=== PATIENT | female | born 1970 | race Caucasian/White ===

== ENCOUNTER 2016-11-02 14:29 | Inpatient (IN) ==
[2016-11-02 14:49] LABS: Basophils % 0.3 %; Eosinophils # 0.2 K/mcL (0.0-0.6); Eosinophils % 1.5 %; Hematocrit 40.6 % (35.3-44.9); Immature Granulocytes % 0.4 % (0-4); Lymphocytes # 2.6 K/mcL (0.6-4.6); Lymphocytes % 25.8 %; Mean Corpuscular HGB Conc 34.5 g/dL (31.6-35.5); Mean Corpuscular Hemoglobin 30.5 pg (28.0-33.3); Mean Corpuscular Volume 88.5 fL (83.0-100.0); Mean Platelet Volume 10.3 fL (9.4-12.4); Monocytes # 0.4 K/mcL (0.0-1.3); Monocytes % 3.6 %; Neutrophils # 6.9 K/mcL (1.6-8.9); Platelet Count 141 K/mcL (140-400); Red Blood Count 4.59 M/mcL (3.82-4.97); Red Cell Distribution Width 12.1 % (11.5-14.5); Segmented Neutrophils % 68.4 %
[2016-11-02] MEDS ORDERED: *HR* LORazepam 2 MG/ML VIAL IVP ONE (14:55)
[2016-11-02] MEDS ORDERED: *HR* Succinylcholine 200 MG/10 ML VIAL IVP ONE ×2 (14:55→20:34)
[2016-11-02] MEDS ORDERED: *HR* Etomidate 20 MG/10 ML AMPUL IVP ONE ×2 (14:55→20:34)
--- NOTE | 2016-11-02 14:56 | Emergency Department Note ---
Disposition Clinical Impression: Overdose Qualifiers: Encounter type: initial encounter Injury intent: intentional self-harm Qualified Code(s): T50.902A - Poisoning by unspecified drugs, medicaments and biological substances, intentional self-harm, initial encounter Suicide attempt by drug ingestion Qualifiers: Encounter type: initial encounter Qualified Code(s): T50.902A - Poisoning by unspecified drugs, medicaments and biological substances, intentional self-harm , initial encounter Disposition: Admitted As Inpatient Condition: Good Time of Disposition: 21:11 Psych HPI - General Chief Complaint: ED Psychiatric Symptoms Stated Complaint: SI / Overdose Time Seen by Provider: 11/02/16 14:35 Source: family, EMS Nursing Notes Reviewed: Yes Vital Signs Reviewed: Yes - History of Present Illness HPI Narrative: Ms. Mirza, a 46yo female, presents from home via EMS with reported voluntary overdose with intention to self-harm. EMS found a pistol next to the patient as well. Patient is unable to provide additional history. Patient's daughter is now bedside. She works at this facility in housekeeping and is very helpful. She notes she was faced timing with the patient and noticed her to be nodding off. This is approximately 13:15 today. Patient's daughter then called EMS. Per patient's daughter, patient has known history of bedbugs in her house for which the she avoids visiting the patient. She also notes that the patient has had hallucinations described as seeing people sitting outside her house, leaving the patient's ex- is trying to kill her, feeling that somebody has an stitch and resewn her purse inside out as a joke. Additionally, patient has a remote history of smoking crack; stopped approximately 1.5 years ago after which she has had a slow but steady decline in ability to care for herself. Patient volunteered to the daughter that she was voluntarily trying to heart herself by taking her medications. EMS brought the bottles which are hydrocodone/acetaminophen 0.5/325 taking for chronic right lower extremity pain as well as alprazolam 1 mg. Patient states that these bottles were full before she took them and they are now empty. EMS notes the patient's pupils are pinpoint on their arrival and are now reactive after 2 doses of intranasal Narcan. Pt complaint: suicidal ideation - Related Data Home Medications Medication Instructions Recorded Confirmed ALPRAZolam [Xanax 1 MG Tablet] 1 mg PO TID PRN 08/07/15 11/02/16 Albuterol Sulfate [Ventolin Hfa] 2 puff IH Q4H PRN 08/07/15 11/02/16 Fluticasone/Salmeterol [Advair 1 puff IH BID 08/07/15 11/02/16 250-50 Diskus] Furosemide [Lasix] 40 mg PO DAILY 08/07/15 11/02/16 HYDROcodone/Acet 7.5/325 mg [[place] 1 tab PO TID PRN 08/07/15 11/02/16 7.5-325 mg] Ipratropium/Albuterol Neb [Duoneb] 3 ml IH QID PRN 08/07/15 11/02/16 Omeprazole [PriLOSEC] 40 mg PO DAILY 08/07/15 11/02/16 Potassium Chloride [Klor-Con 40 meq PO DAILY 08/07/15 11/02/16 Sprinkle] Promethazine [Phenergan] 25 mg PO TID PRN 08/07/15 11/02/16 Ranitidine HCl [Zantac] 150 mg PO BID 08/07/15 11/02/16 Tizanidine HCl 4 mg PO Q8H PRN 08/07/15 11/02/16 hydrALAZINE [HydrALAZINE] 10 mg PO DAILY 08/07/15 11/02/16 Fenofibrate Nanocrystallized 160 mg PO DAILY 11/02/16 11/02/16 [Triglide] Gabapentin [Neurontin] 300 mg PO TID 11/02/16 11/02/16 Lisinopril/Hydrochlorothiazide 0.5 tab PO DAILY 11/02/16 11/02/16 [Zestoretic 20-25 mg Tablet] Gill-3/Dha/Epa/Fish Oil [Fish Oil 1,000 mg PO DAILY 11/02/16 11/02/16 1,000 mg Softgel] Allergies Allergy/AdvReac Type Severity Reaction Status Date / Time No Known Allergies Allergy Verified 08/07/15 11:35 Limitations: ROS unobtainable due to patients medical condition Past Medical History - Past Medical History Medical history: Reports: COPD, GERD, hyperlipidemia, hypertension, kidney stones, renal disease, other Surgical history: Reports: other Psychiatric history: Reports: anxiety, depression [employer]PECTOR [employer] history: Reports: no INS[employer] history, other - Social History Smoking Status: Current every day smoker Smokeless Tobacco Status: No Alcohol use: Reports: occasionally Drug use: Reports: unknown Physical Exam Vital signs reviewed. General: Patient is alert, not oriented, and crying and emotional distress. There are bedbugs visible on her clothing and on the emergency department cot. HEENT: No facial asymmetry. Head is normocephalic and atraumatic. PERRLA, EOMI. Cardiovascular: Heart regular rate and rhythm without clicks, rubs, gallops, or murmurs. No JVD. PMI nondisplaced. Respiratory: Symmetric chest rise with poor respiratory effort. Bilateral breath sounds are clear without wheezing, crackles, or rhonchi. Abdomen: Bowel sounds present normoactive x-4 quadrants. Abdomen is soft, nondistended, and nontender. No organomegaly noted. Psych: Patient's affect is appropriate for situation. - General Limitations: no limitations General appearance: alert Course Course Narrative: Patient is suicidal as she admits to trying to harm herself with voluntary drug overdose. She makes no mention of a pistol bedside even when questioned. Concern is for elevated acetaminophen level of 158.0. Patient coingested hydrocodone/acetaminophen plus the source of her acetaminophen. Estimate at time of ejection was 13:00-13:15. We will redraw acetaminophen level at 17:00 hours. 15:30 Spoke with poison control, really the patient's history and current information including vitals. The recommendation was for repeat acetaminophen images were even ordered otherwise supportive care at this time. 18:10 spoke with the on-call concrete pile driver operator and discussed this patient. He agrees she can come into our facility and does not be transferred at this time. 18:15 spoke with admitting hospitalist, Dr. Cuba, who agrees to accept this patient. 20:15 spoke with the patient's daughter at bedside to update her on her mother' s condition. Discussed in detail to face plan of first medical clearance and then psychiatric evaluation. She notes no questions at this time. Simeon: 33 via the patient and she was becoming hypoxic, was ashen, with decreased respirations. This is likely due to the benzodiazepines coming on board. Bedside blood glucose was greater than 400. 2 mg Narcan IV had no effect. Patient was ventilating well but simply not protecting her airway. Proceeded for RSI as documented in the procedure note. Patient then taken to the ICU. Patient's daughter was bedside and I updated her to the process explaining intubation as a temporary measure to allow her body to metabolize the effects of the medications that she taken. Vital Signs Temperature 97.7 F 11/02/16 14:31 Pulse Rate 100 11/02/16 14:31 Respiratory Rate 14 11/02/16 14:31 Blood Pressure 131/87 11/02/16 14:31 O2 Sat by Pulse Oximetry 97 11/02/16 14:31 Temperature 97.7 F 11/02/16 17:48 Pulse Rate 108 11/02/16 17:48 Respiratory Rate 12 11/02/16 17:48 Blood Pressure 92/58 11/02/16 17:48 O2 Sat by Pulse Oximetry 97 11/02/16 17:48 Oxygen Delivery Oxygen Delivery Room Air Procedures - Intubation Time out performed: Yes sedative: Etomidate Mg Given: 20 paralytic: Succinylcholine Mg Given: 150 Laryngoscope: Az[place] ET Tube Size: 7.5 ET Tube Uncuffed: No Tube Secured Depth (cm): 21 Tube Secured Location: lips Tube Placement Confirmation: visualized tube passing through cords, equal breath sounds bilaterally, no breath sounds over epigastrium, confirmation by capnometry Patient Tolerated Procedure: well Intubation Complications: none Additional Comments: Postintubation films showed placement of ET tube approximately 4 cm short of the wm. Psych - Lab Data Result diagrams: 11/02/16 14:43 11/02/16 14:43 Lab Results 11/02/16 11/02/16 11/02/16 Range/Units 14:43 14:43 17:00 WBC 10.0 (4.3-11.1) K/mcL RBC 4.59 (3.82-4.97) M/mcL Hgb 14.0 (11.5-15.4) g/dL Hct 40.6 (35.3-44.9) % MCV 88.5 (83.0-100.0) fL MCH 30.5 (28.0-33.3) pg MCHC 34.5 (31.6-35.5) g/dL RDW 12.1 (11.5-14.5) % Plt Count 141 (140-400) K/mcL MPV 10.3 (9.4-12.4) fL Immature Gran % 0.4 (0-4) % Seg Neutrophils % 68.4 % Lymphocytes % 25.8 % Monocytes % 3.6 % Eosinophils % 1.5 % Basophils % 0.3 % Neutrophils # 6.9 (1.6-8.9) K/mcL Lymphocytes # 2.6 (0.6-4.6) K/mcL Monocytes # 0.4 (0.0-1.3) K/mcL Eosinophils # 0.2 (0.0-0.6) K/mcL Basophils # 0.0 (0.0-0.2) K/mcL Sodium 144 (136-145) mEq/L Potassium 3.2 L (3.5-4.5) mEq/L Chloride 104 (98-109) mEq/L Carbon Dioxide 29 (19-29) mEq/L BUN 5 L (7-20) mg/dL Creatinine 0.78 (0.57-1.11) mg/dL Est GFR ( Amer) > 60 (> 60) Est GFR (Non-Af Amer) > 60 (> 60) BUN/Creatinine Ratio 6 (6-26) Glucose 119 H (70-99) mg/dL Calculated Osmolality 296 (280-300) Calcium 9.9 (8.6-10.8) mg/dL Total Bilirubin (0.2-1.2) mg/dL Direct Bilirubin (0.0-0.5) mg/dL Indirect Bilirubin (0.0-1.2) mg/dL AST (5-34) Units/L ALT (0-55) Units/L Alkaline Phosphatase (38-126) Units/L Serum Total Protein (6.0-8.3) g/dL Albumin (3.5-5.0) g/dL Globulin (2.4-3.5) g/dL Albumin/Globulin Ratio (1.1-2.2) Urine Color (Yellow) Urine Clarity (Clear) Urine pH (5.0-8.0) pH Units Ur Specific [place] (1.010-1.025) Urine Protein (Neg-Trace) mg/dL Urine Glucose (UA) (Normal) mg/dL Urine Ketones (Negative) mg/dL Urine Blood (Negative) Urine Nitrite (Negative) Urine Bilirubin (Negative) Urine Urobilinogen (Normal) mg/dL Ur Leukocyte Esterase (Negative) Urine Microscopic RBC (0-3) per hpf Urine Microscopic WBC (0-3) per hpf Ur Squamous Epith Cells (None-Few) per lpf Urine Bacteria (None-Few) per hpf Hyaline Casts (None-Few) per lpf Salicylates < 5.0 L (15-30) mg/dL Urine Opiates Screen (Disxkn=111) ng/mL Acetaminophen 158.0 H* 211.0 H* (10-30) mcg/mL Ur Barbiturates Screen (Bkldlg=577) ng/mL Ur Phencyclidine Scrn (Cutoff=25) ng/mL Ur Amphetamines Screen (Mjnqnj=6008) ng/mL U Benzodiazepines Scrn (Islusf=529) ng/mL Urine Cocaine Screen (Cutoff= 300) ng/mL U Marijuana (THC) Screen (Cutoff = 50) ng/mL Ethyl Alcohol < 10 (0-10) mg/dL 11/02/16 11/02/16 11/02/16 Range/Units 17:00 17:15 17:15 WBC (4.3-11.1) K/mcL RBC (3.82-4.97) M/mcL Hgb (11.5-15.4) g/dL Hct (35.3-44.9) % MCV (83.0-100.0) fL MCH (28.0-33.3) pg MCHC (31.6-35.5) g/dL RDW (11.5-14.5) % Plt Count (140-400) K/mcL MPV (9.4-12.4) fL Immature Gran % (0-4) % Seg Neutrophils % % Lymphocytes % % Monocytes % % Eosinophils % % Basophils % % Neutrophils # (1.6-8.9) K/mcL Lymphocytes # (0.6-4.6) K/mcL Monocytes # (0.0-1.3) K/mcL Eosinophils # (0.0-0.6) K/mcL Basophils # (0.0-0.2) K/mcL Sodium (136-145) mEq/L Potassium (3.5-4.5) mEq/L Chloride (98-109) mEq/L Carbon Dioxide (19-29) mEq/L BUN (7-20) mg/dL Creatinine (0.57-1.11) mg/dL Est GFR ( Amer) (> 60) Est GFR (Non-Af Amer) (> 60) BUN/Creatinine Ratio (6-26) Glucose (70-99) mg/dL Calculated Osmolality (280-300) Calcium (8.6-10.8) mg/dL Total Bilirubin 0.7 (0.2-1.2) mg/dL Direct Bilirubin 0.2 (0.0-0.5) mg/dL Indirect Bilirubin 0.5 (0.0-1.2) mg/dL AST 18 (5-34) Units/L ALT 15 (0-55) Units/L Alkaline Phosphatase 90 (38-126) Units/L Serum Total Protein 7.1 (6.0-8.3) g/dL Albumin 4.1 (3.5-5.0) g/dL Globulin 3.0 (2.4-3.5) g/dL Albumin/Globulin Ratio 1.4 (1.1-2.2) Urine Color Yellow (Yellow) Urine Clarity Cloudy A (Clear) Urine pH 5.5 (5.0-8.0) pH Units Ur Specific [place] 1.009 L (1.010-1.025) Urine Protein Negative (Neg-Trace) mg/dL Urine Glucose (UA) Normal (Normal) mg/dL Urine Ketones Negative (Negative) mg/dL Urine Blood Small H (Negative) Urine Nitrite Negative (Negative) Urine Bilirubin Negative (Negative) Urine Urobilinogen Normal (Normal) mg/dL Ur Leukocyte Esterase Negative (Negative) Urine Microscopic RBC 0-3 (0-3) per hpf Urine Microscopic WBC 0-3 (0-3) per hpf Ur Squamous Epith Cells Many H (None-Few) per lpf Urine Bacteria None Seen (None-Few) per hpf Hyaline Casts None Seen (None-Few) per lpf Salicylates (15-30) mg/dL Urine Opiates Screen Positive H (Edwktb=024) ng/mL Acetaminophen (10-30) mcg/mL Ur Barbiturates Screen Negative (Iwjptz=043) ng/mL Ur Phencyclidine Scrn Negative (Cutoff=25) ng/mL Ur Amphetamines Screen Negative (Ngwsei=7199) ng/mL U Benzodiazepines Scrn Positive H (Ibkgek=482) ng/mL Urine Cocaine Screen Negative (Cutoff= 300) ng/mL U Marijuana (THC) Screen Negative (Cutoff = 50) ng/mL Ethyl Alcohol (0-10) mg/dL Psychiatric Medical Clearance - Medical Clearance Checklist Does the patient have a NEW psychiatric condition?: Yes Any abnormalities indicating possible medical illness?: Yes Any history of medical issues?: Yes (COPD) Medical History: No Social History Section defined Any abnormal vital signs prior to transfer?: No Current Vitals: Last Vital Signs Temp 97.7 F 11/02/16 17:48 Pulse 108 11/02/16 17:48 Resp 12 11/02/16 17:48 BP 92/58 11/02/16 17:48 Pulse Ox 97 11/02/16 17:48 Psychiatric Lab Panel: Drug Levels and Toxicity 11/02/16 11/02/16 11/02/16 14:43 17:00 17:15 Urine Opiates Screen Positive H Acetaminophen 158.0 H* 211.0 H* Ur Barbiturates Screen Negative Ur Phencyclidine Scrn Negative Ur Amphetamines Screen Negative U Benzodiazepines Scrn Positive H Urine Cocaine Screen Negative U Marijuana (THC) Screen Negative Ethyl Alcohol < 10 Abnormal Labs: Abnormal lab results Potassium 3.2 mEq/L (3.5-4.5) L 11/02/16 14:43 BUN 5 mg/dL (7-20) L 11/02/16 14:43 Glucose 119 mg/dL (70-99) H 11/02/16 14:43 POC Glucose 414 (58-89) H* 11/02/16 20:22 Urine Clarity Cloudy (Clear) A 11/02/16 17:15 Ur Specific [place] 1.009 (1.010-1.025) L 11/02/16 17:15 Urine Blood Small (Negative) H 11/02/16 17:15 Ur Squamous Epith Cells Many per lpf (None-Few) H 11/02/16 17:15 Salicylates < 5.0 mg/dL (15-30) L 11/02/16 14:43 Urine Opiates Screen Positive ng/mL (Chcwpq=073) H 11/02/16 17:15 Acetaminophen 211.0 mcg/mL (10-30) H* 11/02/16 17:00 U Benzodiazepines Scrn Positive ng/mL (Iixjew=065) H 11/02/16 17:15 Statement of Medical Clearance: I have evaluated the patient, reviewed diagnostic information, and certify that the patient's medical condition is sufficiently stable that transfer to the psychiatric unit does not pose a significant risk of deterioration.
[2016-11-02 15:02] LABS: BUN/Creatinine Ratio 6 (6-26); Calcium 9.9 mg/dL (8.6-10.8); Carbon Dioxide 29 mEq/L (19-29); Chloride 104 mEq/L (98-109); Glucose 119 mg/dL (70-99); Osmolality,Calculated 296 (280-300); Potassium 3.2 mEq/L (3.5-4.5); Sodium 144 mEq/L (136-145); eGFR For African Americans > 60 (> 60); eGFR For Non-African Americans > 60 (> 60)
[2016-11-02 15:09] LABS: Blood Urea Nitrogen 5 mg/dL (7-20)
[2016-11-02 15:10] LABS: Ethanol < 10 mg/dL (0-10); Salicylate < 5.0 mg/dL (15-30)
--- NOTE | 2016-11-02 16:40 | Emergency Department Note ---
START Narrative - START START: I examined this patient and my medical decision-making was reviewed with the [employer] C[employer]TER/PA/Advanced Practice Nurse/Resident Physician. I agree with the documented findings, disposition and treatment plan as described except to the extent set forth below. ED attending note: Patient seen with emergency medicine resident Dr Mccallum. We independently evaluated the patient. We independently had [id number] contact with the patient. Please see a copy of his note for details of the history and physical, evaluation, management and disposition of this emergency Department patient. Briefly: A 46-year-old female by EMS for suicide ideation and intentional overdose. Patient took "a bottle full of [place] and Ativan presents with somnolence and crying. Offers no complaints of abdominal pain or vomiting. Patient's initial acetaminophen level was elevated at 158, however a 4 hour level based on the patient's best history will be drawn at 1700 tonight. Recent control was contacted and no indication for emergent N acetylcysteine administration at this point in time. EKG shows no acute ischemic changes. We have provided one hour of critical care service. Based on the amount of ingestion and the unknown factors therein, patient will be admitted to the medical service after the 4 hour acetaminophen level was redrawn for medical observation and clearance. Disposition pending.
[2016-11-02 17:22] LABS: Bilirubin,Urine Negative (Negative); Blood,Urine Small (Negative); Clarity,Urine Cloudy (Clear); Color,Urine Yellow (Yellow); Glucose,Urine (UA) Normal (Normal); Ketones,Urine Negative (Negative); Leukocyte Esterase,Urine Negative (Negative); Nitrite,Urine Negative (Negative); PH,Urine 5.5 pH Units (5.0-8.0); Protein,Urine Negative (Neg-Trace); Specific Gravity,Urine 1.009 (1.010-1.025); Urobilinogen,Urine Normal (Normal)
[2016-11-02 17:25] LABS: Bacteria,Urine None Seen per hpf (None-Few); Hyaline Casts,Urine None Seen per lpf (None-Few); RBC,Urine 0-3 per hpf (0-3); Squamous Epithelial Cell,Urine Many per lpf (None-Few); WBC,Urine 0-3 per hpf (0-3)
[2016-11-02 17:29] LABS: Amphetamine Screen,Urine Negative ng/mL (Cutoff=1000); Barbiturate Screen,Urine Negative ng/mL (Cutoff=200); Benzodiazepines Screen,Urine Positive ng/mL (Cutoff=200); Cannabinoid Screen,Urine Negative ng/mL (Cutoff = 50); Cocaine Screen,Urine Negative ng/mL (Cutoff= 300); Opiate Screen,Urine Positive ng/mL (Cutoff=300); Phencyclidine Screen,Urine Negative ng/mL (Cutoff=25)
[2016-11-02] MEDS ORDERED: D5 IVC ONE ×2 (17:50→18:50)
[2016-11-02] MEDS ORDERED: WATER IVC ONE ×2 (17:50→18:50)
[2016-11-02] MEDS ORDERED: ACETYLCYSTEINE IVC ONE ×2 (17:50→18:50)
[2016-11-02 18:30] LABS: Albumin 4.1 g/dL (3.5-5.0); Albumin/Globulin Ratio 1.4 (1.1-2.2); Bilirubin,Direct 0.2 mg/dL (0.0-0.5); Bilirubin,Indirect 0.5 mg/dL (0.0-1.2); Bilirubin,Total 0.7 mg/dL (0.2-1.2); Total Protein 7.1 g/dL (6.0-8.3)
[2016-11-02] MEDS ORDERED: 0.9 % Sodium Chloride 1,000 ML ONE (21:09)
[2016-11-02] MEDS ORDERED: Lacri-Lube 3.5 GM TUBE BOTH EYES PRN (21:09)
[2016-11-02] MEDS ORDERED: *HR* Dextrose 50 % in Water (Syg) 50 ML SYRINGE IVP PRN (21:12)
[2016-11-02] MEDS ORDERED: Dextrose Gel 15 GM PO PRN ×2 (21:12)
[2016-11-02] MEDS ORDERED: D5% in Water 1,000 ML IVC PRN (21:12)
[2016-11-02] MEDS ORDERED: Insulin LISPRO 300 UNITS/3 ML VIAL SQ ONE (21:16)
[2016-11-02] MEDS: 0.9 % Sodium Chloride 1,000 ML IVC SCH ×3 (21:39→22:56)
[2016-11-02] MEDS: Insulin LISPRO 300 UNITS/3 ML VIAL SQ SCH ×2 (21:41→23:55)
[2016-11-02 21:52] LABS: ABG Base Excess -6.5 mEq/L (-2.0 to 3.0); ABG Oxygen Saturation 100 % (95-98); ABG PCO2 59 mmHg (35-45); ABG PO2 204 mmHg (85-104); ABG TCO2 23.8 mEq/L (20-26)
[2016-11-02 21:53] LABS: Prothrombin Time 21.9 Seconds (9.4-12.1)
[2016-11-02 21:53] LABS: Blood Gas FiO2 50 %
[2016-11-02 21:54] LABS: ABG PH 7.18 pH Units (7.32-7.45)
[2016-11-02] MEDS ORDERED: Naloxone 2 MG in 0.9 % Sodium Chloride 500 ML IVC SCH (22:00)
--- NOTE | 2016-11-02 22:56 | Internal Med History&Physical ---
<Jasmeet Laguna - Last Filed: 11/02/16 22:52> Date of Encounter: 11/02/16 Time of Encounter: 22:52 Assessment and Plan (1) Overdose Current visit: Yes Status: Acute Patient intentionally overdosed on Xanax and Wheeler 7.5/325. Tox screen is positive for opiates and benzodiazepines. OARRS report shows that the patient received 90 tablets of 1 mg Xanax and 90 tablets of hydrocodone/acetaminophen 7.5/325mg on October 24. Acetaminophen was 158 on presentation, approximately 3-1/ 2 hours post ingestion, repeat was 211 approximately 6 hours post ingestion. Given these levels urgent indication for N-acetylcysteine treatment which was initiated in the emergency department and will run over the 20 hour protocol. She was given Narcan by EMS which initially responded to but did not respond in the emergency department when she was having respiratory failure so the patient was intubated. Upon arrival to the emergency department the patient was hypotensive, fluids were given. Hypotension responded well to Narcan. We will continue with when necessary Narcan, N-acetylcysteine per protocol, IV fluids, supportive measures. Qualifiers: Encounter type: initial encounter Injury intent: intentional self-harm Qualified Code(s): T50.902A - Poisoning by unspecified drugs, medicaments and biological substances, intentional self-harm, initial encounter (2) Acetaminophen overdose Current visit: Yes Status: Acute Due to intentional overdose as discussed above. Continue N-acetylcysteine per protocol. Initial liver enzymes were unremarkable however the patient's INR was 2.0. We will recheck hepatic panel and INR in the morning. Will check acetaminophen level at the end of the N-acetylcysteine dosing protocol. Qualifiers: Encounter type: initial encounter Injury intent: intentional self-harm Qualified Code(s): T39.1X2A - Poisoning by 4-Aminophenol derivatives, intentional self-harm, initial encounter (3) Suicide attempt by drug ingestion Current visit: Yes Status: Acute By overdose as discussed above. The daughter states that the patient has been paranoid and delusional over the last several weeks. Once the patient is medically stable she will require psychiatric evaluation. Daughter does state that her paranoia and delusions have been present the patient started using crack cocaine. Apparently the patient used crack cocaine for several years but has been clean for about 6 months but continues to have paranoia and delusions. Qualifiers: Encounter type: initial encounter Qualified Code(s): T50.902A - Poisoning by unspecified drugs, medicaments and biological substances, intentional self- harm, initial encounter (4) Hypokalemia Current visit: Yes Status: Acute Potassium 3.2 on presentation. No EKG changes. Will replete (5) Hypertension Current visit: Yes Status: Acute Patient is hypotensive at this time due to overdose as discussed above. We will hold antihypertensives and support blood pressure with Narcan and fluids. Will attempt to hold off on vasopressors but the patient may require vasopressor support given her polysubstance overdose. Qualifiers: Hypertension type: essential hypertension Qualified Code(s): I10 - Essential (primary) hypertension (6) COPD (chronic obstructive pulmonary disease) Current visit: Yes Status: Acute No evidence of acute exacerbation. Start Symbicort and when necessary duonebs Qualifiers: COPD type: unspecified COPD Qualified Code(s): J44.9 - Chronic obstructive pulmonary disease, unspecified (7) DVT prophylaxis Current visit: Yes Status: Acute Patient's INR is 2.0 on presentation, no indication for DVT prophylaxis at this time Internal Medicine - H&P: HPI Chief complaint: Overdose Admitted From: Emergency Dept Plans for Post Hospital Care: Home History of present illness: Ms. Mirza is a 46 year old female with history of hypertension, COPD, chronic pain and anxiety presents with a suspected intentional overdose. Patient is intubated and sedated so cannot give a history at this time. Daughter is at the bedside and gives the history. She states that she received a video call from her mother today and her mother was requesting that she come over and would not say why. The daughter states that her mother seemed very drowsy and lethargic. The daughter asked her mother repeatedly if she took something and the mother evaded the question. Given the daughter's concern she called the police and the police found the patient minimally responsive with an empty bottle of Wheeler 7.5/325 and Xanax 1 mg at the bedside as well as a loaded gun. The daughter reports that the patient has been paranoid and delusional over the last several weeks. The daughter reports that the patient has been concerned that people are trying to poison her and have been following her. The daughter does report a suicide attempt by overdose one time in the past. Past Med Surg Social Fam HX - Past Medical History Medical history: COPD, GERD, hyperlipidemia, hypertension, kidney stones, renal disease, other Psychiatric history: anxiety, depression - Past Surgical History Surgical History: other - Social History Smoking Status: Current every day smoker Smokeless Tobacco Status: No Alcohol use: occasionally Drug use: unknown - Family History Mother Hx Family Cardiac Disorders: Yes Hx Family Endocrine Disorder: Yes Internal Medicine - H&P: Meds ALPRAZolam [Xanax 1 MG Tablet] 1 mg PO TID PRN 08/07/15 [History] Albuterol Sulfate [Ventolin Hfa] 2 puff IH Q4H PRN 08/07/15 [History] Fluticasone/Salmeterol [Advair 250-50 Diskus] 1 puff IH BID 08/07/15 [History] Furosemide [Lasix] 40 mg PO DAILY 08/07/15 [History] HYDROcodone/Acet 7.5/325 mg [Wheeler 7.5-325 mg] 1 tab PO TID PRN 08/07/15 [ History] Ipratropium/Albuterol Neb [Duoneb] 3 ml IH QID PRN 08/07/15 [History] Omeprazole [PriLOSEC] 40 mg PO DAILY 08/07/15 [History] Potassium Chloride [Klor-Con Sprinkle] 40 meq PO DAILY 08/07/15 [History] Promethazine [Phenergan] 25 mg PO TID PRN 08/07/15 [History] Ranitidine HCl [Zantac] 150 mg PO BID 08/07/15 [History] Tizanidine HCl 4 mg PO Q8H PRN 08/07/15 [History] hydrALAZINE [HydrALAZINE] 10 mg PO DAILY 08/07/15 [History] Fenofibrate Nanocrystallized [Triglide] 160 mg PO DAILY 11/02/16 [History] Gabapentin [Neurontin] 300 mg PO TID 11/02/16 [History] Lisinopril/Hydrochlorothiazide [Zestoretic 20-25 mg Tablet] 0.5 tab PO DAILY [History] [place]-3/Dha/Epa/Fish Oil [Fish Oil 1,000 mg Softgel] 1,000 mg PO DAILY 11/02/16 [History] Allergies No Known Allergies Allergy (Verified 08/07/15 11:35) ROS unobtainable: due to endotracheal tube All Systems PM: A 10-system review of systems was performed and is negative for pertinent findings except as documented above in the HPI. - Constitutional Vitals: Temp Pulse Resp BP Pulse Ox 93.3 F L 84 16 104/74 99 11/02/16 22:30 11/02/16 22:00 11/02/16 22:36 11/02/16 22:36 11/02/16 22:36 General appearance: Present: A&O X 0 - Head Head exam: Present: atraumatic, normal inspection, normocephalic - Eye Pupils: Present: mydriatic (Sluggish but reactive bilaterally) - ENT ENT exam: Present: mucous membranes dry - Neck Neck exam general surgery: Present: full ROM. Absent: nuchal rigidity - Respiratory Respiratory exam: Present: CTAB. Absent: rales, rhonchi, wheezes - Cardiovascular Cardiovascular exam: Present: RRR. Absent: gallop, rubs, systolic murmur - GI/Abdominal GI/Abdominal exam: Present: hypoactive bowel sounds. Absent: distended, soft, tenderness - Extremities Exam Extremities exam: Absent: mottling, pedal edema, tenderness, warm (cool) - Neurological Exam Neurological exam: Present: altered Additional comments: Patient is minimally responsive at this time. Pupils are constricted bilaterally but do react minimally to light. The patient does not follow commands but does move all 4 extremities spontaneously and makes attempts to grab at the ET tube. - Skin Skin exam: Present: dry, intact. Absent: warm Internal Med - H&P Results - Labs CBC & Chem 7: 11/02/16 14:43 11/02/16 14:43 - ABG Interpretation ABG results: 11/02/16 21:42 ABG pH 7.18 L* ABG pCO2 59 H ABG pO2 204 H ABG HCO3 22.0 ABG Total CO2 23.8 ABG O2 Saturation 100 H ABG Base Excess -6.5 L - Impressions ITS Impressions Chest X-Ray 11/02/16 20:33 IMPRESSION: 1. No active pulmonary disease. 2. Endotracheal tube in satisfactory position. D/ / Bolivar Sow MD / Bolivar Sow MD Interpreting Provider: Bolivar Sow MD <Pasquale Bravo Silke - Last Filed: 11/03/16 02:31> Date of Encounter: 11/02/16 Internal Medicine - H&P: HPI History of present illness: Ms. Mirza is a 46 year old female All Systems PM: A 10-system review of systems was performed and is negative for pertinent findings except as documented above in the HPI. - Constitutional Vitals: Temp Pulse Resp BP Pulse Ox 98.5 F 69 16 78/58 98 11/03/16 02:00 11/03/16 02:00 11/03/16 02:00 11/03/16 02:00 11/03/16 02:00 Internal Med - H&P Results - Labs CBC & Chem 7: 11/02/16 14:43 11/02/16 14:43 - ABG Interpretation ABG results: 11/03/16 00:49 ABG pH 7.32 ABG pCO2 39 ABG pO2 107 H ABG HCO3 20.1 L ABG Total CO2 21.3 ABG O2 Saturation 98 ABG Base Excess -5.6 L - Attending Attestation I performed history and physical examination of the patient and discussed management with the Resident. I reviewed the Residents note and agree with documented findings and plan of care. 46 Y/F with h/o hypertension, COPD, chronic pain, anxiety, h/o substance abuse and paranoid symptoms (per the daughter) admitted with a suspected intentional overdose of unknown number of Wheeler 7.5/325 and Xanax 1 mg. Patient is intubated and is on mechanical ventilation and is not able to give history. Spoken to patients daughter at the bedside. Pts daughter reports that she received a video call from her mother today and her mother was requesting the daughter to come over and would not say why. The daughter states that her mother seemed very drowsy and lethargic. The daughter asked her mother repeatedly if she took something and the mother evaded the question. Given the daughter's concern she called the police and the police found the patient minimally responsive with an empty bottle of Wheeler 7.5/325 and Xanax 1 mg at the bedside as well as a loaded gun. Pts pupils were reportedly pinpoint on the arrival of the EMS crew and was given 2 doses of intranasal Narcan. In the ER, 4 hour acetaminophen level was 211. She was started on N-acetylcysteine. She was apparently not protecting the airway and hence she was intubated and admitted to the ICU to hospitalist service. O/E: Not responsive to verbal or painful stimuli. Lungs: Bilaterally clear to present. Cardiac regular rate and rhythm. Pupils: small. Labs/investigations reviewed: EKG personally reviewed by me shows sinus rhythm. No acute ischemic changes. CXR reported no active pulmonary disease. Endotracheal tube in satisfactory position. INR is 2. ABG shows pH of 7.18. Serum lactate is 7.1. Urine tox screen is positive for opiates and benzodiazepines. A/P: - Intentional overdose Wheeler and Xanax: Pt is in acute resp failure on mechanical ventilation. Psychiatry consult, when the pt is extubated and able to talk. - Acetaminophen overdose with 4 hour level of 211. Patient is on N- acetylcysteine infusion. INR is elevated at 2. Monitor liver function tests and INR. Consider GI consult and if there worsening of the LFTs, consider transfer to Liver transplant center. Will give a dose of vitamin K, for elevated INR / coagulopathy. - Mixed metabolic and respiratory acidosis: Patient is on mechanical ventilation. Monitor ABGs no need for sodium bicarbonate at this time. - Lactic acidosis: Likely due to liver failure versus hypotension. Monitor lactate levels. - Hypotension: Likely due to opiate overdose. Did not respond well to intravenous fluid boluses, however did respond to narcan. Narcan drip versus bolus PRN. Blood and urine cultures sent it will consider vasopressors, if the patient is not responding. - Hyperglycemia: Check Hemoglobin A1C. Pt is at risk of hypoglycemia, if she develops liver failure. Monitor accuchecks Q4H. DVT prophylaxis: SCDs Pt is critically ill and critical care time spent, in stabilizing the pt and with the patient, in ICU is about 60 minutes. >50% time spent on co-ordination of care and counselling the family.
[2016-11-02 22:57] LABS: ABG Base Excess -6.7 mEq/L (-2.0 to 3.0); ABG HCO3 20.6 mEQ/L (21-27); ABG Oxygen Saturation 96 % (95-98); ABG PCO2 48 mmHg (35-45); ABG PH 7.24 pH Units (7.32-7.45); ABG PO2 97 mmHg (85-104); ABG TCO2 22.1 mEq/L (20-26)
[2016-11-02 22:58] LABS: Blood Gas FiO2 30 %
[2016-11-02] MEDS: Naloxone 0.4 MG/ML INJ IVP PRN ×2 (23:18→23:20)
[2016-11-02] MEDS ORDERED: Ipratropium/Albuterol Neb 3 ML IH PRN (23:30)
[2016-11-02] MEDS ORDERED: Potassium Chloride Elixir 20 MEQ/15 ML UDC GTUBE ONE (23:33)
[2016-11-02] MEDS ORDERED: *HR* Phytonadione 5 MG TABLET GTUBE ONE (23:54)
[2016-11-03] MEDS: Lacri-Lube 3.5 GM TUBE BOTH EYES SCH ×7 (00:18→23:23)
[2016-11-03] MEDS: Acetylcysteine 6,600 MG in D5% in Water 1,000 ML IVC ONE ×2 (00:43→17:53)
[2016-11-03 00:57] LABS: ABG Base Excess -5.6 mEq/L (-2.0 to 3.0); ABG HCO3 20.1 mEQ/L (21-27); ABG Oxygen Saturation 98 % (95-98); ABG PCO2 39 mmHg (35-45); ABG PH 7.32 pH Units (7.32-7.45); ABG PO2 107 mmHg (85-104); ABG TCO2 21.3 mEq/L (20-26)
[2016-11-03 00:59] LABS: Blood Gas FiO2 30 %
[2016-11-03] MEDS: Naloxone 0.4 MG/ML INJ IVP PRN ×4 (01:09→05:18)
[2016-11-03 02:12] LABS: INR 1.6; Prothrombin Time 17.6 Seconds (9.4-12.1)
[2016-11-03 02:32] LABS: Hemoglobin A1C 4.6 %
[2016-11-03 02:36] LABS: Alanine Aminotransferase 18 Units/L (0-55); Albumin 3.4 g/dL (3.5-5.0); Albumin/Globulin Ratio 1.2 (1.1-2.2); Alkaline Phosphatase 82 Units/L (38-126); Aspartate Amino Transferase 22 Units/L (5-34); BUN/Creatinine Ratio 6 (6-26); Bilirubin,Direct 0.4 mg/dL (0.0-0.5); Bilirubin,Indirect 0.4 mg/dL (0.0-1.2); Bilirubin,Total 0.8 mg/dL (0.2-1.2); Blood Urea Nitrogen 7 mg/dL (7-20); Carbon Dioxide 18 mEq/L (19-29); Chloride 110 mEq/L (98-109); Globulin 2.8 g/dL (2.4-3.5); Glucose 152 mg/dL (70-99); Osmolality,Calculated 299 (280-300); Sodium 144 mEq/L (136-145); Total Protein 6.2 g/dL (6.0-8.3); eGFR For African Americans > 60 (> 60); eGFR For Non-African Americans 51 (> 60)
[2016-11-03 02:51] LABS: Calcium 8.2 mg/dL (8.6-10.8)
[2016-11-03] MEDS ORDERED: Potassium Chloride Elixir 20 MEQ/15 ML UDC GTUBE ONE (04:26)
[2016-11-03 04:49] LABS: ABG Base Excess -3.4 mEq/L (-2.0 to 3.0); ABG HCO3 21.4 mEQ/L (21-27); ABG Oxygen Saturation 97 % (95-98); ABG PCO2 37 mmHg (35-45); ABG PH 7.37 pH Units (7.32-7.45); ABG PO2 93 mmHg (85-104); ABG TCO2 22.5 mEq/L (20-26)
[2016-11-03 04:50] LABS: Blood Gas FiO2 30 %
[2016-11-03] MEDS: 0.9 % Sodium Chloride 1,000 ML IVC SCH ×2 (05:18→13:12)
[2016-11-03] MEDS: Naloxone 2 MG in 0.9 % Sodium Chloride 500 ML IVC SCH ×2 (05:30→19:46)
[2016-11-03 06:09] LABS: Basophils % 0.2 %; Eosinophils % 0.2 %; Hematocrit 37.1 % (35.3-44.9); Hemoglobin 12.3 g/dL (11.5-15.4); Immature Granulocytes % 0.9 % (0-4); Immature Platelets 6.2 % (1.1-6.1); Lymphocytes # 5.1 K/mcL (0.6-4.6); Lymphocytes % 27.6 %; Mean Corpuscular HGB Conc 33.2 g/dL (31.6-35.5); Mean Corpuscular Hemoglobin 30.8 pg (28.0-33.3); Mean Platelet Volume 10.7 fL (9.4-12.4); Monocytes # 0.8 K/mcL (0.0-1.3); Monocytes % 4.3 %; Neutrophils # 12.3 K/mcL (1.6-8.9); Nucleated Red Blood Cells 0.1 /100 WBC (0); Platelet Count 175 K/mcL (140-400); Red Blood Count 3.99 M/mcL (3.82-4.97); Red Cell Distribution Width 12.6 % (11.5-14.5); Segmented Neutrophils % 66.8 %
[2016-11-03] MEDS: Insulin LISPRO 300 UNITS/3 ML VIAL SQ SCH (06:12)
[2016-11-03 06:13] LABS: Ionized Calcium 1.07 mmol/L (1.15-1.35)
[2016-11-03] MEDS: Pantoprazole 40 MG VIAL IVPB SCH (06:14)
[2016-11-03] MEDS ORDERED: 0.9 % Sodium Chloride 1,000 ML IVC ONE (06:26)
[2016-11-03 06:49] LABS: Magnesium 1.5 mg/dL (1.6-2.6)
[2016-11-03] MEDS ORDERED: Vancomycin 1,250 MG in D5% in Water 250 ML IVPB SCH (07:00)
[2016-11-03] MEDS ORDERED: Budesonide/Formoterol 160/4.5 MDI IH ONE (07:34)
[2016-11-03] MEDS: Budesonide/Formoterol 160/4.5 MDI IH SCH ×2 (07:55→20:07)
[2016-11-03] MEDS ORDERED: Piperacillin/Tazobactam 3.375 GM in D5% in Water (Mini-Bag+) 100 ML IVPB SCH (08:00)
[2016-11-03] MEDS ORDERED: *HR* Midazolam HCl 5 MG/5 ML VIAL IVP ONE (08:08)
[2016-11-03] MEDS ORDERED: Aminoglycoside Consult 1 EACH MC ONE (09:06)
[2016-11-03] MEDS ORDERED: Norepinephrine 4 MG in D5% in Water 250 ML IVC SCH (09:30)
[2016-11-03] MEDS: Thiamine (B-1) 100 MG TABLET PO SCH (11:41)
[2016-11-03] MEDS: *HR* Heparin 5,000 UNIT/ML VIAL SQ SCH ×2 (11:41→19:51)
[2016-11-03] MEDS: Chlorhexidine Rinse 15 ML MOUTHWASH MM SCH ×2 (11:41→19:50)
[2016-11-03 12:48] LABS: Mixed Venous Blood pCO2 51 mmHg (44-46); Mixed Venous Blood pH 7.23 (7.34-7.36); Mixed Venous Blood pO2 113 mmHg (35-45)
[2016-11-03 13:27] LABS: Mixed Venous Blood O2 Hgb 95.8 % (60-80)
[2016-11-03] MEDS ORDERED: Acetylcysteine 6,800 MG in D5% in Water 1,000 ML IVC ONE (14:00)
--- NOTE | 2016-11-03 14:07 | Pulmonology Progress Note ---
Date of Encounter: 11/03/16 Time of Encounter: 14:07 Assessment and Plan (1) Overdose Current Visit: Yes Status: Acute Patient intentionally overdosed on Xanax 1mg and [place] 7.5/325. Tox screen positive for opiates and benzodiazepines. OARRS report shows that the patient received 90 tablets of 1 mg Xanax and 90 tablets of hydrocodone/acetaminophen 7.5/325mg on October 24. Acetaminophen was 158 on presentation, approximately 2.5 hrs after ingestion. Repeat was 211 approximately 6 hrs post ingestion. N- acetylcysteine treatment was initiated. Will repeat acetaminophen level around 1pm and then talk with poison control to determine if another bag of N- acetylcysteine is needed. - Repeat acetaminophen at 1pm. Will update with poison control - Monitor BID LFT and INR - As patient begins to wake up will work towards extubation - Psych eval prior to discharge Qualifiers: Encounter type: initial encounter Injury intent: intentional self-harm Qualified Code(s): T50.902A - Poisoning by unspecified drugs, medicaments and biological substances, intentional self-harm, initial encounter (2) Acetaminophen overdose Current Visit: Yes Status: Acute Qualifiers: Encounter type: initial encounter Injury intent: intentional self-harm Qualified Code(s): T39.1X2A - Poisoning by 4-Aminophenol derivatives, intentional self-harm, initial encounter (3) Hypotension Current Visit: Yes Status: Acute Patient with worsening hypotension since admission. Initially responsive to fluid and Narcan. Patient was on a narcan drip early this morning. Due to persistant hypotension with low MAP, a central line was placed and patient was started on levophed. Believe this is secondary to vasodilation, more of a distributative shock. There was some concern for septic shock with patient's elevated WBC and patient was started on antibiotics. Patient has remained afebrile with no signs of infection on exam. Will stop all antibiotics at this time and continue to monitor patient. - Monitor blood pressure - Wean vasopressors as tolerated - Mixed venous blood gas, may consider ECHO to evaluate heart function - Stop antibiotics Qualifiers: Hypotension type: unspecified hypotension type Qualified Code(s): I95.9 - Hypotension, unspecified (4) Elevated INR Current Visit: Yes Status: Acute Patient with INR of 2.0 on admission. Family denies any history of EtOH use or liver disease. Patient is not on any anticoagulation. She was given vitamin K and repeat INR was 1.6. - Liver ultrasound (5) Hypokalemia Current Visit: Yes Status: Acute Potassium 3.0. On electrolyte protocol (6) COPD (chronic obstructive pulmonary disease) Current Visit: Yes Status: Acute Patient with history of COPD. Currently intubated. No acute exacerbation. Lungs clear to auscultation. - Duonebs as needed Qualifiers: COPD type: unspecified COPD Qualified Code(s): J44.9 - Chronic obstructive pulmonary disease, unspecified (7) Leukocytosis Current Visit: Yes Status: Acute Patient with leukocytosis - WBC 18.4. Believe this is secondary to an acute stress response. There was some concern for sepsis. However patient has been afebrile and has shown no other signs of infection. Antibiotics stopped today. Will continue to monitor vital signs and labs - Stop antibiotics - Monitor labs and vital signs Qualifiers: Leukocytosis type: unspecified Qualified Code(s): D72.829 - Elevated white blood cell count, unspecified (8) DVT prophylaxis Current Visit: Yes Status: Acute Heparin Neuro: Sedation continued from medications patient ingested. Expect patient will being to wake up as drugs wash out of her system Pulm: Intubated on vent for drowsiness and apnea. Hopeful for SBT tomorrow Cardiac: Hypotensive likely a distributive shock. Continue levophed as needed. May consider ECHO GI/Fluids/Electrolytes/Hydration - Will start tube feeds via OG tube - Tylenol overdose - monitor levels. May require another bag of N- acetylcystine. - Monitor LFT and INR - Liver ultrasound - NS at 150mls/hr Renal: Decreased urine output likely secondary to shock. Acute kidney injury. Continue to monitor output and kidney function. ID: No signs of infection currently. Stop antibiotics Heme/Onc: INR 2.0 > 1.6 with Vit K. Follow INR. Liver Ultrasound Endocrine: Q6H accucheck Psych: Intentional OD. Family reports history of paranoia and delusion. Psych consult prior to discharge Dispo: ICU Subjective Principal diagnosis: Overdose Interval history: Ms. Mirza is a 46yo female admitted to the ICU overnight after suspected intentional overdose. Patient was found minimally responsive by EMS next to an empty Din[place] 7.5/325 bottle, an empty Xanax 1mg bottle and a gun. In the ED, patient was extremely lethargic with episodes of apnea so she was intubated in the ED. In the ICU patient became hypotensive despite fluids. A central venous catheter was placed and levophed was started. Patient seen and examined this morning. On initial arrival to the floor she required active warming for a temperature of 92.5, now improved to normal. Initially tachycardic, now with heart rate down in the 60-70s. MAP appropriate with levophed. Patient opened her eyes to voice and was following commands. Lungs clear to auscultation bilaterally. Abdomen soft, non-tender. No pedal edema noted. Objective PUL Vital signs: Last Vital Signs Temp 99.1 F 11/03/16 11:00 Pulse 62 11/03/16 13:00 Resp 14 11/03/16 13:00 BP 104/68 11/03/16 13:00 Pulse Ox 96 11/03/16 13:00 General appearance: no acute distress, other (Intubated. Opens eyes to voice and follows commands) Eyes: nonicteric ENT: oropharynx moist Neck: supple Effort: normal Auscultation: bilateral: clear Cardiovascular: regular rate and rhythm Gastrointestinal: soft, non-tender, non-distended Integumentary: normal Extremities: no cyanosis, no edema, no clubbing unable to assess due to mental status Ventilator Settings Ventilator Settings: Ventilator Settings, Last 8 Hours Ventilator Mode A/C Ventilator Mode A/C Ventilator Mode VC+ Ventilator Mode A/C Ventilator Mode A/C Ventilator Mode VC+ Ventilator Mode A/C Ventilator Mode VC+ Ventilator Mode VC+ Ventilator Mode VC+ Ventilator Mode VC+ Ventilator Tidal Volume 450 Setting Ventilator Tidal Volume 450 Setting Ventilator Tidal Volume 450 Setting Ventilator Tidal Volume 450 Setting Ventilator Tidal Volume 450 Setting Ventilator Tidal Volume 450 Setting Ventilator Tidal Volume 450 Setting Ventilator Tidal Volume 450 Setting Ventilator Tidal Volume 450 Setting Ventilator Tidal Volume 450 Setting Ventilator Tidal Volume 450 Setting Ventilator Respiratory Rate 14 Setting Ventilator Respiratory Rate 14 Setting Ventilator Respiratory Rate 14 Setting Ventilator Respiratory Rate 14 Setting Ventilator Respiratory Rate 14 Setting Ventilator Respiratory Rate 14 Setting Ventilator Respiratory Rate 14 Setting Ventilator Respiratory Rate 14 Setting Ventilator Respiratory Rate 14 Setting Ventilator Respiratory Rate 14 Setting Ventilator Respiratory Rate 14 Setting Actual Respiratory Rate 14 Actual Respiratory Rate 14 Actual Respiratory Rate 14 Actual Respiratory Rate 14 Actual Respiratory Rate 14 Actual Respiratory Rate 14 Actual Respiratory Rate 14 Actual Respiratory Rate 30 Actual Respiratory Rate 14 Actual Respiratory Rate 14 Positive End Expiratory 5 Pressure Positive End Expiratory 5 Pressure Positive End Expiratory 5 Pressure Positive End Expiratory 5 Pressure Positive End Expiratory 5 Pressure Positive End Expiratory 5 Pressure Positive End Expiratory 5 Pressure Positive End Expiratory 5 Pressure Positive End Expiratory 5 Pressure Positive End Expiratory 5 Pressure Positive End Expiratory 5 Pressure Peak Inspiratory Airway 21 Pressure Peak Inspiratory Airway 22 Pressure Peak Inspiratory Airway 22 Pressure Peak Inspiratory Airway 22 Pressure Peak Inspiratory Airway 20 Pressure Peak Inspiratory Airway 21 Pressure Peak Inspiratory Airway 20 Pressure Peak Inspiratory Airway 29 Pressure Peak Inspiratory Airway 21 Pressure Peak Inspiratory Airway 22 Pressure Results - Laboratory Findings CBC and BMP: 11/03/16 05:54 11/03/16 01:57 ABG ABG pH 7.37 pH Units (7.32-7.45) 11/03/16 04:39 ABG pCO2 37 mmHg (35-45) 11/03/16 04:39 ABG pO2 93 mmHg (85-104) 11/03/16 04:39 ABG O2 Saturation 97 % (95-98) 11/03/16 04:39 PT/INR, D-dimer PT 17.6 Seconds (9.4-12.1) H 11/03/16 01:57 Abnormal lab findings: Abnormal lab results WBC 18.4 K/mcL (4.3-11.1) H D 11/03/16 05:54 Neutrophils # 12.3 K/mcL (1.6-8.9) H 11/03/16 05:54 Lymphocytes # 5.1 K/mcL (0.6-4.6) H 11/03/16 05:54 Nucleated RBCs/100 WBC 0.1 /100 WBC (0) H 11/03/16 05:54 Immature Plt Fraction 6.2 % (1.1-6.1) H 11/03/16 05:54 PT 17.6 Seconds (9.4-12.1) H 11/03/16 01:57 ABG Base Excess -3.4 mEq/L (-2.0 to 3.0) L 11/03/16 04:39 Mixed VBG pH 7.23 (7.34-7.36) L 11/03/16 12:00 Mixed VBG pCO2 51 mmHg (44-46) H 11/03/16 12:00 Mixed VBG pO2 113 mmHg (35-45) H 11/03/16 12:00 Mixed VBG Oxyhemoglobin 95.8 % (60-80) H 11/03/16 12:00 Potassium 3.0 mEq/L (3.5-4.5) L 11/03/16 01:57 Chloride 110 mEq/L (98-109) H 11/03/16 01:57 Carbon Dioxide 18 mEq/L (19-29) L 11/03/16 01:57 Creatinine 1.14 mg/dL (0.57-1.11) H 11/03/16 01:57 Est GFR (Non-Af Amer) 51 (> 60) L 11/03/16 01:57 Glucose 152 mg/dL (70-99) H 11/03/16 01:57 POC Glucose 104 (58-89) H 11/03/16 11:05 Calcium 8.2 mg/dL (8.6-10.8) L D 11/03/16 01:57 Ionized Calcium 1.07 mmol/L (1.15-1.35) L 11/03/16 05:54 Magnesium 1.5 mg/dL (1.6-2.6) L 11/03/16 05:54 Albumin 3.4 g/dL (3.5-5.0) L 11/03/16 01:57 Urine Clarity Cloudy (Clear) A 11/02/16 17:15 Ur Specific [place] 1.009 (1.010-1.025) L 11/02/16 17:15 Urine Blood Small (Negative) H 11/02/16 17:15 Ur Squamous Epith Cells Many per lpf (None-Few) H 11/02/16 17:15 Salicylates < 5.0 mg/dL (15-30) L 11/02/16 14:43 Urine Opiates Screen Positive ng/mL (Pihffs=218) H 11/02/16 17:15 Acetaminophen 44.0 mcg/mL (10-30) H 11/03/16 12:50 U Benzodiazepines Scrn Positive ng/mL (Xvknry=918) H 11/02/16 17:15 - Diagnostic Findings Chest x-ray: report reviewed, image reviewed - Clinical Findings Intake & Output: Intake & Output 11/02/16 11/03/16 11/03/16 23:59 07:59 15:59 Intake Total 3446.5 / 3446.5 242 / 242 Output Total 600 / 600 200 / 200 Balance 2846.5 / 2846.5 42 / Weight 68 kg - VTE Reasons for not Prescribing Prophylaxis: Not indicated-Anticoagulated or INR therapeutic Documentation of Mechanical Device: Intermittent pneumatic compression device Consult Discharge Plan - Plan Referrals: NO,PCP [Primary Care Provider] -
[2016-11-03] MEDS ORDERED: Calcium Gluconate 1,000 MG in D5% in Water 100 ML IVPB PRN (14:19)
[2016-11-03] MEDS: Potassium Phosphate 44 MEQ in 0.9 % Sodium Chloride 250 ML IVPB PRN (15:07)
[2016-11-03] MEDS: Magnesium Sulfate 2 GM in D5% in Water 100 ML IVPB PRN ×2 (15:07→23:03)
[2016-11-03 15:13] LABS: INR 1.9; Prothrombin Time 20.6 Seconds (9.4-12.1)
[2016-11-03 15:21] LABS: Alanine Aminotransferase 16 Units/L (0-55); Albumin 2.6 g/dL (3.5-5.0); Albumin/Globulin Ratio 1.2 (1.1-2.2); Alkaline Phosphatase 61 Units/L (38-126); Aspartate Amino Transferase 26 Units/L (5-34); BUN/Creatinine Ratio 7 (6-26); Bilirubin,Total 0.6 mg/dL (0.2-1.2); Blood Urea Nitrogen 6 mg/dL (7-20); Calcium 7.6 mg/dL (8.6-10.8); Carbon Dioxide 20 mEq/L (19-29); Chloride 112 mEq/L (98-109); Globulin 2.1 g/dL (2.4-3.5); Glucose 101 mg/dL (70-99); Osmolality,Calculated 286 (280-300); Potassium 2.9 mEq/L (3.5-4.5); Sodium 139 mEq/L (136-145); Total Protein 4.7 g/dL (6.0-8.3); eGFR For African Americans > 60 (> 60); eGFR For Non-African Americans > 60 (> 60)
--- NOTE | 2016-11-03 16:41 | Procedure Note ---
Date of procedure: 11/03/16 Pre-op diagnosis: Hypotension requiring vasopresser support Post-op diagnosis: same Procedure: Procedure Note: Central Venous Catheter Insertion Indication: Hypotension requiring vasopressor support Attending Physician: Dr. White Video Game Designer: Sidney Mesa, PGY3 and Nallely Graham, PGY1 Indication: This is a 46 year-old female with overdose and hypotension requiring vasopressor support . Consent: Detailed explanation of the procedure, treatment options, risks including but not limited to infection and bleeding, and benefits were explained to the patient's daughter Marilyn Grover. A verbal informed consent was obtained. Technique: A time out was preformed identifying the correct procedure, the correct location with the nursing staff. The left neck was prepped with 2% chlorhexidine and draped with a full length sterile sheet in the usual fashion. The left internal jugular vein was accessed under ultrasound guidance with an 18 gauge thin wall needle. A triple lumen was inserted via the seldinger technique. Blood was withdrawn from all lumens and flushed with normal saline. The catheter was sutured in place and a sterile dressing was applied over the site prior to removal of drapes. The patient tolerated the procedure well and there were no complications. Chest x ray: obtained - Left internal jugular central venous catheter with tip near the superior cavoatrial junction EBL: minimal Complication: None Anesthesia: local Pathology: none sent Condition: stable Disposition: ICU
[2016-11-03] MEDS: Potassium Chloride 40 MEQ/200 ML BAG IVPB PRN ×3 (16:49→22:40)
--- NOTE | 2016-11-03 17:21 | Electrocardiograph Report ---
[address] [place], [place] [address] Test Date: 2016-11-02 Pat Name: Danika Mirza Department: 104 Room: 10 Gender: F [employer] [place] [employer] Professor: : 1970 Requested By: Garrison Dobson Order Number: [id number] Reading MD: Patricia Keating Measurements Intervals [place] Rate: 78 P: 54 LA: 154 QRS: 17 QRSD: 99 T: 29 QT: 404 QTc: 438 Interpretive Statements SINUS RHYTHM Electronically Signed On 11-03-2016 17:20:11 EDT by Patricia Keating
[2016-11-03] MEDS: *HR* Phytonadione 5 MG TABLET PO SCH (19:50)
[2016-11-03 22:02] LABS: Magnesium 1.6 mg/dL (1.6-2.6); Phosphorous 2.8 mg/dL (2.3-4.7); Potassium 3.5 mEq/L (3.5-4.5)
[2016-11-04] MEDS: Potassium Phosphate 44 MEQ in 0.9 % Sodium Chloride 250 ML IVPB PRN ×2 (01:07→22:38)
[2016-11-04 03:25] LABS: Basophils % 0.3 %; Eosinophils # 0.1 K/mcL (0.0-0.6); Eosinophils % 0.7 %; Hematocrit 33.1 % (35.3-44.9); Hemoglobin 10.9 g/dL (11.5-15.4); Immature Granulocytes % 0.8 % (0-4); Lymphocytes # 2.1 K/mcL (0.6-4.6); Mean Corpuscular HGB Conc 32.9 g/dL (31.6-35.5); Monocytes # 0.4 K/mcL (0.0-1.3); Monocytes % 3.3 %; Neutrophils # 8.5 K/mcL (1.6-8.9); Nucleated Red Blood Cells 0.2 /100 WBC (0); Red Blood Count 3.52 M/mcL (3.82-4.97); Red Cell Distribution Width 12.8 % (11.5-14.5); Segmented Neutrophils % 75.9 %
[2016-11-04 03:38] LABS: Alanine Aminotransferase 14 Units/L (0-55); Albumin 2.5 g/dL (3.5-5.0); Albumin/Globulin Ratio 1.2 (1.1-2.2); Alkaline Phosphatase 63 Units/L (38-126); Aspartate Amino Transferase 20 Units/L (5-34); BUN/Creatinine Ratio 4 (6-26); Bilirubin,Total 0.4 mg/dL (0.2-1.2); Carbon Dioxide 19 mEq/L (19-29); Chloride 114 mEq/L (98-109); Globulin 2.1 g/dL (2.4-3.5); Glucose 119 mg/dL (70-99); Osmolality,Calculated 284 (280-300); Potassium 3.8 mEq/L (3.5-4.5); Sodium 138 mEq/L (136-145); Total Protein 4.6 g/dL (6.0-8.3); eGFR For African Americans > 60 (> 60); eGFR For Non-African Americans > 60 (> 60)
[2016-11-04 03:39] LABS: INR 1.8; Prothrombin Time 20.1 Seconds (9.4-12.1)
[2016-11-04 03:41] LABS: Blood Urea Nitrogen 3 mg/dL (7-20)
[2016-11-04 03:56] LABS: Platelet Count 96 K/mcL (140-400)
[2016-11-04 04:21] LABS: Magnesium 1.8 mg/dL (1.6-2.6); Phosphorous 2.4 mg/dL (2.3-4.7)
[2016-11-04 04:51] LABS: ABG Base Excess -3.3 mEq/L (-2.0 to 3.0); ABG HCO3 22.1 mEQ/L (21-27); ABG Oxygen Saturation 94 % (95-98); ABG PCO2 40 mmHg (35-45); ABG PH 7.35 pH Units (7.32-7.45); ABG PO2 76 mmHg (85-104); ABG TCO2 23.3 mEq/L (20-26)
[2016-11-04] MEDS: Lacri-Lube 3.5 GM TUBE BOTH EYES SCH ×5 (05:01→21:55)
[2016-11-04 05:02] LABS: Blood Gas FiO2 30 %
[2016-11-04 05:03] LABS: Blood Gas PEEP 5 cm H2O; Blood Gas Respiration Rate 14; Blood Gas VT 450 cc
[2016-11-04] MEDS: *HR* Heparin 5,000 UNIT/ML VIAL SQ SCH ×3 (05:03→21:42)
[2016-11-04] MEDS: Pantoprazole 40 MG VIAL IVPB SCH (05:03)
[2016-11-04] MEDS: Potassium Chloride 40 MEQ/200 ML BAG IVPB PRN (05:10)
[2016-11-04] MEDS: Magnesium Sulfate 2 GM in D5% in Water 100 ML IVPB PRN (05:39)
--- NOTE | 2016-11-04 07:13 | Pulmonology Progress Note ---
Date of Encounter: 11/04/16 Time of Encounter: 07:11 Assessment and Plan (1) Overdose Current Visit: Yes Status: Acute Patient intentionally overdosed on Xanax 1mg and [place] 7.5/325. Tox screen positive for opiates and benzodiazepines. OARRS report shows that the patient received 90 tablets of 1 mg Xanax and 90 tablets of hydrocodone/acetaminophen 7.5/325mg on October 24. Acetaminophen was 158 on presentation, approximately 2.5 hrs after ingestion. Repeat was 211 approximately 6 hrs post ingestion. N- acetylcysteine treatment was initiated. Patient received a second bag of 100mg/ kg of NAC. Tylenol level this morning 3. Discussed with poison control - stop NAC this morning. LFTs normal this morning - Stop NAC - Monitor daily LFT and INR - As patient begins to wake up will work towards extubation - Psych eval prior to discharge Qualifiers: Encounter type: initial encounter Injury intent: intentional self-harm Qualified Code(s): T50.902A - Poisoning by unspecified drugs, medicaments and biological substances, intentional self-harm, initial encounter (2) Acetaminophen overdose Current Visit: Yes Status: Acute Qualifiers: Encounter type: initial encounter Injury intent: intentional self-harm Qualified Code(s): T39.1X2A - Poisoning by 4-Aminophenol derivatives, intentional self-harm, initial encounter (3) Acute respiratory failure Current Visit: Yes Status: Acute Acute respiratory failure - improving. Patient intubated in the ED for lethargy or apnea. Remains intubated. CXR on admission showed no acute process. This morning, patient is tolerating CPAP well. - Will wean towards extubation when patient is more awake. Qualifiers: Respiratory failure complication: unspecified whether with hypoxia or hypercapnia Qualified Code(s): J96.00 - Acute respiratory failure, unspecified whether with hypoxia or hypercapnia (4) Shock Current Visit: Yes Status: Acute Shock - Improved. Patient with worsening hypotension on admission. Initially responsive to fluid and Narcan. Patient was on a narcan drip early this morning. Due to persistant hypotension with low MAP, a central line was placed and patient was started on levophed. Believe this is secondary to vasodilation , more of a distributative shock. Patient much improved and no long requiring vasopressors. - Monitor blood pressure (5) Acute renal failure Current Visit: Yes Status: Acute Acute renal failure - improved. Patient with bump in creatinine and decreased urine output. This is improving. UOP much improved - 1950mls out yesterday. - Monitor urine output Qualifiers: Acute renal failure type: unspecified Qualified Code(s): N17.9 - Acute kidney failure, unspecified (6) Elevated INR Current Visit: Yes Status: Acute Patient with INR of 2.0 on admission. Family denies any history of EtOH use or liver disease. Patient is not on any anticoagulation. She was given vitamin K and repeat INR was 1.6. Liver ultrasound was negative for signs of cirrhosis. Cause of elevated INR is unknown. - Continue monitoring INR (7) COPD (chronic obstructive pulmonary disease) Current Visit: Yes Status: Acute Patient with history of COPD. Currently intubated. No acute exacerbation. Lungs clear to auscultation. - Duonebs as needed Qualifiers: COPD type: unspecified COPD Qualified Code(s): J44.9 - Chronic obstructive pulmonary disease, unspecified (8) Leukocytosis Current Visit: Yes Status: Acute Patient with leukocytosis on admission - WBC 18.4. This is improving Believe this is secondary to an acute stress response. - Monitor labs and vital signs Qualifiers: Leukocytosis type: unspecified Qualified Code(s): D72.829 - Elevated white blood cell count, unspecified (9) DVT prophylaxis Current Visit: Yes Status: Acute Heparin Neuro: No sedation. Waiting for patient to wake up. Nystagmus on exam Pulm: Intubated on vent for drowsiness and apnea. CPAP today. Waiting for patient to wake up more for extubation. Cardiac: Hypotension improved. No longer requiring vasopressor. GI/Fluids/Electrolytes/Hydration - Will start tube feeds via OG tube - Tylenol overdose. Level 3 this morning. No more NAC needed - Monitor LFT and INR - Liver ultrasound Renal: Urine output improving. Woodruff. Continue to monitor kidney infection ID: Tmax 101. Monitor temperature. If she continues to spike will culture and start antibiotics. Heme/Onc: INR 2.0 > 1.6 with Vit K. Follow INR. Liver Ultrasound showed no signs of cirrhosis Endocrine: Q6H accucheck Psych: Intentional OD. Family reports history of paranoia and delusion. Psych consult prior to discharge Dispo: ICU Subjective Principal diagnosis: Overdose Interval history: No acute events overnight. Tmax 100.1. Vitals signs within normal limits. Patient seen and examined. She is tolerating CPAP well this morning, all sedation is off. She opens her eyes but does not follow commands. Horizontal nystagmus noted on eye exam, patient does not track. Lungs clear to auscultation. Abdomen soft, non-tender. No pedal edema noted. Objective PUL Vital signs: Last Vital Signs Temp 100.1 F H 11/03/16 23:49 Pulse 92 11/04/16 05:41 Resp 14 11/04/16 05:41 BP 99/63 11/04/16 05:41 Pulse Ox 95 11/04/16 05:41 General appearance: other (Intubated. Opens eyes to voice) Eyes: nonicteric ENT: oropharynx moist Effort: normal Auscultation: bilateral: clear Cardiovascular: regular rate and rhythm Gastrointestinal: soft, non-tender, non-distended Integumentary: normal Extremities: no cyanosis, no edema unable to assess due to mental status Ventilator Settings Ventilator Settings: Ventilator Settings, Last 8 Hours Ventilator Mode A/C Ventilator Mode A/C Ventilator Mode A/C Ventilator Mode VC+ Ventilator Mode VC+ Ventilator Mode A/C Ventilator Mode A/C Ventilator Mode A/C Ventilator Mode A/C Ventilator Mode A/C Ventilator Mode A/C Ventilator Mode VC+ Ventilator Tidal Volume 450 Setting Ventilator Tidal Volume 450 Setting Ventilator Tidal Volume 450 Setting Ventilator Tidal Volume 450 Setting Ventilator Tidal Volume 450 Setting Ventilator Tidal Volume 450 Setting Ventilator Tidal Volume 450 Setting Ventilator Tidal Volume 450 Setting Ventilator Tidal Volume 450 Setting Ventilator Tidal Volume 450 Setting Ventilator Tidal Volume 450 Setting Ventilator Tidal Volume 450 Setting Ventilator Respiratory Rate 14 Setting Ventilator Respiratory Rate 14 Setting Ventilator Respiratory Rate 14 Setting Ventilator Respiratory Rate 14 Setting Ventilator Respiratory Rate 14 Setting Ventilator Respiratory Rate 14 Setting Ventilator Respiratory Rate 14 Setting Ventilator Respiratory Rate 14 Setting Ventilator Respiratory Rate 14 Setting Ventilator Respiratory Rate 14 Setting Ventilator Respiratory Rate 14 Setting Ventilator Respiratory Rate 14 Setting Actual Respiratory Rate 14 Actual Respiratory Rate 14 Actual Respiratory Rate 14 Actual Respiratory Rate 14 Actual Respiratory Rate 14 Actual Respiratory Rate 14 Actual Respiratory Rate 14 Actual Respiratory Rate 14 Actual Respiratory Rate 14 Actual Respiratory Rate 18 Actual Respiratory Rate 14 Positive End Expiratory 5 Pressure Positive End Expiratory 5 Pressure Positive End Expiratory 5 Pressure Positive End Expiratory 5 Pressure Positive End Expiratory 5 Pressure Positive End Expiratory 5 Pressure Positive End Expiratory 5 Pressure Positive End Expiratory 5 Pressure Positive End Expiratory 5 Pressure Positive End Expiratory 5 Pressure Positive End Expiratory 5 Pressure Positive End Expiratory 5 Pressure Peak Inspiratory Airway 31 Pressure Peak Inspiratory Airway 32 Pressure Peak Inspiratory Airway 34 Pressure Peak Inspiratory Airway 33 Pressure Peak Inspiratory Airway 34 Pressure Peak Inspiratory Airway 22 Pressure Peak Inspiratory Airway 22 Pressure Peak Inspiratory Airway 26 Pressure Peak Inspiratory Airway 24 Pressure Peak Inspiratory Airway 26 Pressure Peak Inspiratory Airway 21 Pressure Results - Laboratory Findings CBC and BMP: 11/04/16 03:09 11/04/16 11:45 ABG ABG pH 7.35 pH Units (7.32-7.45) 11/04/16 04:37 ABG pCO2 40 mmHg (35-45) 11/04/16 04:37 ABG pO2 76 mmHg (85-104) L 11/04/16 04:37 ABG O2 Saturation 94 % (95-98) L 11/04/16 04:37 PT/INR, D-dimer PT 20.1 Seconds (9.4-12.1) H 11/04/16 03:09 Abnormal lab findings: Abnormal lab results WBC 11.2 K/mcL (4.3-11.1) H 11/04/16 03:09 RBC 3.52 M/mcL (3.82-4.97) L 11/04/16 03:09 Hgb 10.9 g/dL (11.5-15.4) L 11/04/16 03:09 Hct 33.1 % (35.3-44.9) L 11/04/16 03:09 Plt Count 96 K/mcL (140-400) L 11/04/16 03:09 Nucleated RBCs/100 WBC 0.2 /100 WBC (0) H 11/04/16 03:09 PT 20.1 Seconds (9.4-12.1) H 11/04/16 03:09 ABG pO2 76 mmHg (85-104) L 11/04/16 04:37 ABG O2 Saturation 94 % (95-98) L 11/04/16 04:37 ABG Base Excess -3.3 mEq/L (-2.0 to 3.0) L 11/04/16 04:37 Mixed VBG pH 7.23 (7.34-7.36) L 11/03/16 12:00 Mixed VBG pCO2 51 mmHg (44-46) H 11/03/16 12:00 Mixed VBG pO2 113 mmHg (35-45) H 11/03/16 12:00 Mixed VBG Oxyhemoglobin 95.8 % (60-80) H 11/03/16 12:00 Chloride 114 mEq/L (98-109) H 11/04/16 03:09 BUN 3 mg/dL (7-20) L 11/04/16 03:09 BUN/Creatinine Ratio 4 (6-26) L 11/04/16 03:09 Glucose 119 mg/dL (70-99) H 11/04/16 03:09 POC Glucose 91 (58-89) H 11/03/16 23:25 Calcium 8.0 mg/dL (8.6-10.8) L 11/04/16 03:09 Serum Total Protein 4.6 g/dL (6.0-8.3) L 11/04/16 03:09 Albumin 2.5 g/dL (3.5-5.0) L 11/04/16 03:09 Globulin 2.1 g/dL (2.4-3.5) L 11/04/16 03:09 Urine Clarity Cloudy (Clear) A 11/02/16 17:15 Ur Specific [place] 1.009 (1.010-1.025) L 11/02/16 17:15 Urine Blood Small (Negative) H 11/02/16 17:15 Ur Squamous Epith Cells Many per lpf (None-Few) H 11/02/16 17:15 Salicylates < 5.0 mg/dL (15-30) L 11/02/16 14:43 Urine Opiates Screen Positive ng/mL (Ukngzx=003) H 11/02/16 17:15 Acetaminophen 3.0 mcg/mL (10-30) L 11/04/16 03:09 U Benzodiazepines Scrn Positive ng/mL (Pshayh=144) H 11/02/16 17:15 - Diagnostic Findings Chest x-ray: report reviewed, image reviewed - Clinical Findings Intake & Output: Intake & Output 11/03/16 11/03/16 11/04/16 15:59 23:59 07:59 Intake Total 592 / 592 2906.9 / 2906.9 1217 / 1217 Output Total 500 / 500 850 / 850 400 / 400 Balance 92 / 92 2056.9 / 2056.9 817 / 817 Weight 68 kg 80.2 kg - VTE Reasons for not Prescribing Prophylaxis: Not indicated-Anticoagulated or INR therapeutic Documentation of Mechanical Device: Graduated compression elastic hosiery Consult Discharge Plan - Plan Referrals: NO,PCP [Primary Care Provider] -
[2016-11-04] MEDS: Budesonide/Formoterol 160/4.5 MDI IH SCH ×2 (07:36→21:23)
[2016-11-04 08:01] LABS: Platelet Estimate Decreased (Normal)
[2016-11-04] MEDS: Thiamine (B-1) 100 MG TABLET PO SCH (09:22)
[2016-11-04] MEDS: Chlorhexidine Rinse 15 ML MOUTHWASH MM SCH ×2 (09:22→21:42)
[2016-11-04 12:14] LABS: Magnesium 2.1 mg/dL (1.6-2.6); Phosphorous 2.5 mg/dL (2.3-4.7); Potassium 4.5 mEq/L (3.5-4.5)
[2016-11-04] MEDS: *HR* Phytonadione 5 MG TABLET PO SCH (21:42)
[2016-11-05 04:06] LABS: Basophils % 0.1 %; Eosinophils % 0.3 %; Hematocrit 32.2 % (35.3-44.9); Hemoglobin 10.8 g/dL (11.5-15.4); Immature Granulocytes % 1.1 % (0-4); Lymphocytes # 1.4 K/mcL (0.6-4.6); Lymphocytes % 15.5 %; Mean Corpuscular HGB Conc 33.5 g/dL (31.6-35.5); Mean Corpuscular Hemoglobin 31.1 pg (28.0-33.3); Mean Corpuscular Volume 92.8 fL (83.0-100.0); Mean Platelet Volume 11.9 fL (9.4-12.4); Monocytes # 0.5 K/mcL (0.0-1.3); Monocytes % 5.2 %; Red Blood Count 3.47 M/mcL (3.82-4.97); Red Cell Distribution Width 12.4 % (11.5-14.5); Segmented Neutrophils % 77.8 %
[2016-11-05 04:07] LABS: Neutrophils # 7.2 K/mcL (1.6-8.9); Platelet Count 74 K/mcL (140-400)
[2016-11-05 04:10] LABS: Ionized Calcium 1.23 mmol/L (1.15-1.35)
[2016-11-05 04:21] LABS: Alanine Aminotransferase 11 Units/L (0-55); Albumin 2.7 g/dL (3.5-5.0); Alkaline Phosphatase 69 Units/L (38-126); Aspartate Amino Transferase 12 Units/L (5-34); BUN/Creatinine Ratio 7 (6-26); Bilirubin,Total 0.5 mg/dL (0.2-1.2); Blood Urea Nitrogen 5 mg/dL (7-20); Calcium 8.8 mg/dL (8.6-10.8); Carbon Dioxide 25 mEq/L (19-29); Chloride 110 mEq/L (98-109); Globulin 2.7 g/dL (2.4-3.5); Glucose 130 mg/dL (70-99); Magnesium 1.4 mg/dL (1.6-2.6); Osmolality,Calculated 295 (280-300); Phosphorous 2.9 mg/dL (2.3-4.7); Sodium 143 mEq/L (136-145); Total Protein 5.4 g/dL (6.0-8.3); eGFR For African Americans > 60 (> 60); eGFR For Non-African Americans > 60 (> 60)
[2016-11-05] MEDS: Lacri-Lube 3.5 GM TUBE BOTH EYES SCH ×6 (04:27→21:45)
[2016-11-05 04:39] LABS: Platelet Estimate Decreased (Normal)
[2016-11-05 04:46] LABS: INR 1.5; Prothrombin Time 15.8 Seconds (9.4-12.1)
[2016-11-05] MEDS: Magnesium Sulfate 2 GM in D5% in Water 100 ML IVPB PRN ×2 (05:25→21:12)
[2016-11-05] MEDS: Pantoprazole 40 MG VIAL IVPB SCH (06:39)
[2016-11-05] MEDS: *HR* Heparin 5,000 UNIT/ML VIAL SQ SCH ×3 (06:39→21:44)
[2016-11-05] MEDS: Budesonide/Formoterol 160/4.5 MDI IH SCH ×2 (08:01→21:17)
[2016-11-05] MEDS: Ampicillin/Sulbactam 1,500 MG in 0.9 % Sodium Chloride Mini Bag 100 ML IVPB SCH ×4 (08:04→23:48)
[2016-11-05] MEDS: Chlorhexidine Rinse 15 ML MOUTHWASH MM SCH ×2 (08:04→21:44)
[2016-11-05] MEDS: Thiamine (B-1) 100 MG TABLET PO SCH (08:04)
[2016-11-05 08:14] LABS: Bilirubin,Urine Negative (Negative); Blood,Urine Moderate (Negative); Clarity,Urine Clear (Clear); Color,Urine Yellow (Yellow); Glucose,Urine (UA) Normal (Normal); Ketones,Urine Negative (Negative); Leukocyte Esterase,Urine Negative (Negative); Nitrite,Urine Negative (Negative); Protein,Urine Negative (Neg-Trace); Specific Gravity,Urine 1.015 (1.010-1.025); Urobilinogen,Urine Normal (Normal)
[2016-11-05 08:17] LABS: Bacteria,Urine None Seen per hpf (None-Few); Hyaline Casts,Urine None Seen per lpf (None-Few); Squamous Epithelial Cell,Urine Few per lpf (None-Few); WBC,Urine 0-3 per hpf (0-3)
[2016-11-05] MEDS ORDERED: *HR* LORazepam 2 MG/ML VIAL IVP ONE (09:13)
[2016-11-05] MEDS ORDERED: *HR* LORazepam 2 MG/ML VIAL IVP PRN (09:14)
[2016-11-05] MEDS ORDERED: *HR* LORazepam 2 MG/ML VIAL ONE (09:16)
--- NOTE | 2016-11-05 12:53 | EEG/EMG/Oth Biometrics Report ---
EEG Procedure Report EEG Procedure: Routine EEG Procedure Note: This is a report of a 21 channel bipolar and referential montage EEG reported on an individual who attempted to overdose on acetaminophen. She is also on benzodiazepines. There is no posterior dominant alpha rhythm identified at any time during the recording. Spindle like activity prevails in all leads bilaterally throughout much of the recording. No vertex sharp wave activity consistent with normal sleep is identified. Beta frequencies and intermixed theta and delta frequencies are identified as well. Ventilation was not performed recording. Photic stimulation is performed and does not produce a driving response. KG demonstrated reveals normal sinus rhythm at 90 beats per minute. Impressions: This EEG recording is abnormal and is consistent with a severe generalized encephalopathy. There is no evidence of epileptiform activity identified during the study. Comment: Etiologies to explain this interpretation might include toxic, metabolic, post ictal, and degenerative. This correlated clinically. The documentation in the history of HPI and plan were at least partially created by [employer] voice recognition technology by Dr. Graham. Errors in grammar, wording or other phrases may exist. If errors are found after the documentation signed, they will be addressed individually in the addendum section of this document when appropriate.
--- NOTE | 2016-11-05 14:17 | Pulmonology Progress Note ---
Date of Encounter: 11/05/16 Time of Encounter: 13:58 Assessment and Plan (1) Encephalopathy acute Current Visit: Yes Status: Acute Acute encephalopathy secondary to overdose of xanax and norco. Tox screen positive for opiates and benzos. OARRS report shows that the patient received 90 tablets of 1 mg Xanax and 90 tablets of hydrocodone/acetaminophen 7.5/325mg on October 24. Would have expected patient to begin waking up more. However, she still only opens eyes to voice and does not follow commands. Will get and EEG to evaluate for possible seizures and consult may be placed to neurology. - Continue to hold sedation - EEG, possible consult to neurology. (2) Overdose Current Visit: Yes Status: Acute Patient intentionally overdosed on Xanax 1mg and [place] 7.5/325. Tox screen positive for opiates and benzos. OARRS report shows that the patient received 90 tablets of 1 mg Xanax and 90 tablets of hydrocodone/acetaminophen 7.5/325mg on October 24. Acetaminophen level 158 > 211 > 3. Patient received NAC protocol for treatment. This was stopped when tylenol level was decreased and LFTs were normal. LFTs continue to be normal. - Monitory LFT and INR - Patient will require psych consult prior to discharge Qualifiers: Encounter type: initial encounter Injury intent: intentional self-harm Qualified Code(s): T50.902A - Poisoning by unspecified drugs, medicaments and biological substances, intentional self-harm, initial encounter (3) Acetaminophen overdose Current Visit: Yes Status: Acute Qualifiers: Encounter type: initial encounter Injury intent: intentional self-harm Qualified Code(s): T39.1X2A - Poisoning by 4-Aminophenol derivatives, intentional self-harm, initial encounter (4) Acute respiratory failure Current Visit: Yes Status: Acute Acute respiratory failure - improving. Patient intubated in the ED for lethargy or apnea. Remains intubated because patient has been slow to wake up. Now with elevated temps, increase sputum output and lungs with diffuse rhonchi concerning for aspiration pneumonia. Will culture and start unasyn. - Will wean towards extubation when patient is more awake - Follow sputum cultures - On Unasyn (day 1) Qualifiers: Respiratory failure complication: unspecified whether with hypoxia or hypercapnia Qualified Code(s): J96.00 - Acute respiratory failure, unspecified whether with hypoxia or hypercapnia (5) Shock Current Visit: Yes Status: Acute Shock - Improved. Patient with worsening hypotension on admission. Believe this is secondary to vasodilation, more of a distributative shock. Patient much improved and no long requiring vasopressors. - Monitor blood pressure (6) Acute renal failure Current Visit: Yes Status: Acute Acute renal failure - improved. Patient with bump in creatinine and decreased urine output with hypotension on admission. Creatinine 0.69 today. - Monitor urine output and kidney function Qualifiers: Acute renal failure type: unspecified Qualified Code(s): N17.9 - Acute kidney failure, unspecified (7) Elevated INR Current Visit: Yes Status: Acute Patient with INR of 2.0 on admission. Family denies any history of EtOH use or liver disease. Patient is not on any anticoagulation. Today INR was 1.5. Liver ultrasound was negative for signs of cirrhosis. Cause of elevated INR is unknown. - Ammonia level - Hepatitis panel - Continue monitoring INR (8) COPD (chronic obstructive pulmonary disease) Current Visit: Yes Status: Acute Patient with history of COPD. Currently intubated. Concern for likely aspiration pneumonia. Continue duonebs scheduled. - Duonebs Qualifiers: COPD type: unspecified COPD Qualified Code(s): J44.9 - Chronic obstructive pulmonary disease, unspecified (9) DVT prophylaxis Current Visit: Yes Status: Acute Heparin Neuro: No sedation. Would have thought patient would start to wake up by now. Will get EEG to evaluate for sub-clinical seizures. Possible consult to neurology. Pulm: Intubated on vent, doing well with CPAP trials. Waiting for patient to wake up more. Concern for possible aspiration pneumonia, started on unasyn Cardiac: Hypotension improved. No longer requiring vasopressor. GI/Fluids/Electrolytes/Hydration: Continue tube feeds. Monitor LFT and INR. Liver ultrasound showed no cirrhosis. Ammonia and hepatitis panel pending Renal: Urine output improving. Woodruff. Continue to monitor kidney infection ID: Spiked temperatures overnight. Mendez-cultured. Concern for aspiration pneumonia. Started on unasyn Heme/Onc: INR 1.5 today. Follow INR. Liver Ultrasound showed no signs of cirrhosis. Ammonia and hepatitis panel pending Endocrine: Q6H accucheck Psych: Intentional OD. Family reports history of paranoia and delusion. Psych consult prior to discharge Dispo: ICU Subjective Principal diagnosis: Overdose Interval history: Patient spiked temperatures overnight, Tmax of 102. She was mendez-cultured this morning and started on unasyn with concern for aspiration pneumonia. Patient seen and examined this morning. She was initially tolerating CPAP well with all sedation off. However, she became agitated and tachypneic with a respiratory rate in the 30s. She was placed back on vent settings. She remains very groggy. She will open her eyes to voice but does not follow commands. Nystagmus still noted on eye exam, however improved from yesterday. Lungs with diffuse rhonchi. Abdomen soft, non-tender. No pedal edema noted. Objective PUL Vital signs: Last Vital Signs Temp 100.8 F H 11/05/16 11:49 Pulse 91 11/05/16 12:30 Resp 17 11/05/16 12:30 BP 132/71 11/05/16 12:30 Pulse Ox 91 11/05/16 12:30 General appearance: other (Intubated. Opens eyes but does not follow commands) Eyes: nonicteric ENT: oropharynx moist Effort: normal Auscultation: bilateral: rhonchi Cardiovascular: regular rate and rhythm Gastrointestinal: soft, non-tender, non-distended Extremities: no cyanosis, no edema, no clubbing unable to assess due to mental status, other (Opens eyes to voice but will not follow commands.) Ventilator Settings Ventilator Settings: Ventilator Settings, Last 8 Hours Ventilator Mode VC+ Ventilator Mode VC+ Ventilator Mode VC+ Ventilator Mode VC+ Ventilator Mode VC+ Ventilator Mode CPAP Ventilator Mode CPAP Ventilator Mode CPAP Ventilator Tidal Volume 450 Setting Ventilator Tidal Volume 450 Setting Ventilator Tidal Volume 450 Setting Ventilator Tidal Volume 450 Setting Ventilator Tidal Volume 450 Setting Ventilator Tidal Volume 450 Setting Ventilator Respiratory Rate 14 Setting Ventilator Respiratory Rate 14 Setting Ventilator Respiratory Rate 14 Setting Ventilator Respiratory Rate 14 Setting Ventilator Respiratory Rate 14 Setting Actual Respiratory Rate 18 Actual Respiratory Rate 23 Actual Respiratory Rate 18 Actual Respiratory Rate 22 Actual Respiratory Rate 24 Actual Respiratory Rate 26 Actual Respiratory Rate 28 Actual Respiratory Rate 24 Positive End Expiratory 5 Pressure Positive End Expiratory 5 Pressure Positive End Expiratory 5 Pressure Positive End Expiratory 5 Pressure Positive End Expiratory 5 Pressure Positive End Expiratory 5 Pressure Positive End Expiratory 5 Pressure Positive End Expiratory 5 Pressure Peak Inspiratory Airway 28 Pressure Peak Inspiratory Airway 29 Pressure Peak Inspiratory Airway 29 Pressure Peak Inspiratory Airway 30 Pressure Peak Inspiratory Airway 38 Pressure Peak Inspiratory Airway 40 Pressure Peak Inspiratory Airway 19 Pressure Peak Inspiratory Airway 16 Pressure Peak Inspiratory Airway 16 Pressure Results - Laboratory Findings CBC and BMP: 05/25/17 03:52 11/05/16 03:52 ABG ABG pH 7.35 pH Units (7.32-7.45) 11/04/16 04:37 ABG pCO2 40 mmHg (35-45) 11/04/16 04:37 ABG pO2 76 mmHg (85-104) L 11/04/16 04:37 ABG O2 Saturation 94 % (95-98) L 11/04/16 04:37 PT/INR, D-dimer PT 15.8 Seconds (9.4-12.1) H 11/05/16 03:44 Abnormal lab findings: Abnormal lab results RBC 3.47 M/mcL (3.82-4.97) L 11/05/16 03:52 Hgb 10.8 g/dL (11.5-15.4) L 11/05/16 03:52 Hct 32.2 % (35.3-44.9) L 11/05/16 03:52 Plt Count 74 K/mcL (140-400) L 11/05/16 03:52 Nucleated RBCs/100 WBC 0.2 /100 WBC (0) H 11/04/16 03:09 Platelet Estimate Decreased (Normal) L 11/05/16 03:52 PT 15.8 Seconds (9.4-12.1) H 11/05/16 03:44 ABG pO2 76 mmHg (85-104) L 11/04/16 04:37 ABG O2 Saturation 94 % (95-98) L 11/04/16 04:37 ABG Base Excess -3.3 mEq/L (-2.0 to 3.0) L 11/04/16 04:37 Mixed VBG pH 7.23 (7.34-7.36) L 11/03/16 12:00 Mixed VBG pCO2 51 mmHg (44-46) H 11/03/16 12:00 Mixed VBG pO2 113 mmHg (35-45) H 11/03/16 12:00 Mixed VBG Oxyhemoglobin 95.8 % (60-80) H 11/03/16 12:00 Chloride 110 mEq/L (98-109) H 11/05/16 03:52 BUN 5 mg/dL (7-20) L 11/05/16 03:52 Glucose 130 mg/dL (70-99) H 11/05/16 03:52 POC Glucose 106 (58-89) H 11/05/16 11:29 Magnesium 1.4 mg/dL (1.6-2.6) L 11/05/16 03:52 Serum Total Protein 5.4 g/dL (6.0-8.3) L 11/05/16 03:52 Albumin 2.7 g/dL (3.5-5.0) L 11/05/16 03:52 Albumin/Globulin Ratio 1.0 (1.1-2.2) L 11/05/16 03:52 Urine Blood Moderate (Negative) H 11/05/16 07:45 Urine Microscopic RBC 3-5 per hpf (0-3) H 11/05/16 07:45 Salicylates < 5.0 mg/dL (15-30) L 11/02/16 14:43 Urine Opiates Screen Positive ng/mL (Oxhnkp=040) H 11/02/16 17:15 Acetaminophen 3.0 mcg/mL (10-30) L 11/04/16 03:09 U Benzodiazepines Scrn Positive ng/mL (Ninxbf=892) H 11/02/16 17:15 - Microbiology Findings Microbiology Findings: Microbiology, Last 48 Hours 11/05/16 07:45 Sputum Culture - Preliminary Sputum - Diagnostic Findings Chest x-ray: report reviewed, image reviewed - Clinical Findings Intake & Output: Intake & Output 11/04/16 11/05/16 11/05/16 23:59 07:59 15:59 Intake Total 871 / 871 160 / 160 Output Total 1125 / 1125 2075 / 2075 775 / 775 Balance -1125 / -1125 -1204 / -1204 -615 / -615 Weight 75.4 kg - VTE Reasons for not Prescribing Prophylaxis: Not indicated-Anticoagulated or INR therapeutic Documentation of Mechanical Device: Intermittent pneumatic compression device Consult Discharge Plan - Plan Referrals: NO,PCP [Primary Care Provider] -
--- NOTE | 2016-11-05 15:15 | Event Note ---
Date of Encounter: 11/05/16 Time of Encounter: 15:14 Attending addendum: The patient was seen and examined with the house staff. I reviewed the resident note, but I was unable to cosign the note secondary to computer malfunction. I agree with the resident note with the following addendum: 1. Acute respiratory failure 2. Shock 3. Acute renal failure 4. Encephalopathy 46-year-old white female with medical history significant for depression who presented from home to the emergency department following a suicide attempt by ingesting [place] and Xanax. Intubated for failure to protect the airway due to encephalopathy. Continue full vent support as ongoing mental status precludes extubation. She is at risk for tracheostomy tube placement if her encephalopathy does not resolve. Shock of unclear etiology. No clear signs of sepsis or source of infection. Potentially related to the vasodilatory effect of her toxic ingestion. Clinical exam and elevated SCVO2 are not consistent with cardiogenic shock. She has been adequately volume resuscitated, and we have placed a central venous catheter. She has been weaned off vasopressors. Lactic acid levels have normalized. Acute renal failure likely due to ATN/hypoperfusion from shock. Unknown if she potentially ingested a nephrotoxic medication. She has been adequately volume resuscitated. Urine output excellent as of late. We will continue to trend urine output and Chem-7 Cr has normalized. Dense encephalopathy persists. She has developed some horizontal nystagmus. Continue to hold sedation as able. Anoxia in the differential diagnosis, but reportedly she did not have a prolonged downtime or hypoxic episode. Check ammonia level. Will consult neurology for evaluation defer EEG or MRI to their expertise. Suicide attempt due to the ingestion of opioids, acetaminophen, and benzodiazepines. We are trending LFTs and INR. INR was elevated upon admission , but slowly improving with vitamin K challenge. Right upper quadrant ultrasound did not reveal cirrhotic morphology of liver. She has finished a course of N-acetylcysteine, per poison control recommendations. Continue ICU level of care. Total direct critical care time: 35 minutes
[2016-11-05] MEDS: Vancomycin 1,250 MG in D5% in Water 250 ML IVPB SCH (17:12)
[2016-11-05 19:20] LABS: Magnesium 1.6 mg/dL (1.6-2.6); Phosphorous 2.6 mg/dL (2.3-4.7)
[2016-11-05 20:05] LABS: Hepatitis B Surface Antigen Nonreactive (Nonreactive)
[2016-11-06] MEDS: Lacri-Lube 3.5 GM TUBE BOTH EYES SCH ×3 (00:58→08:04)
[2016-11-06 03:58] LABS: Hematocrit 28.6 % (35.3-44.9); Hemoglobin 9.6 g/dL (11.5-15.4); Mean Corpuscular HGB Conc 33.6 g/dL (31.6-35.5); Mean Corpuscular Hemoglobin 31.4 pg (28.0-33.3); Mean Corpuscular Volume 93.5 fL (83.0-100.0); Mean Platelet Volume 12.1 fL (9.4-12.4); Platelet Count 66 K/mcL (140-400); Red Blood Count 3.06 M/mcL (3.82-4.97); Red Cell Distribution Width 12.3 % (11.5-14.5)
[2016-11-06 04:03] LABS: Ionized Calcium 1.17 mmol/L (1.15-1.35)
[2016-11-06 04:08] LABS: BUN/Creatinine Ratio 9 (6-26); Blood Urea Nitrogen 6 mg/dL (7-20); Calcium 8.7 mg/dL (8.6-10.8); Carbon Dioxide 29 mEq/L (19-29); Chloride 108 mEq/L (98-109); Glucose 145 mg/dL (70-99); Osmolality,Calculated 298 (280-300); Phosphorous 3.6 mg/dL (2.3-4.7); Potassium 3.4 mEq/L (3.5-4.5); Sodium 144 mEq/L (136-145); eGFR For African Americans > 60 (> 60); eGFR For Non-African Americans > 60 (> 60)
[2016-11-06 04:21] LABS: Lymphocytes # 1.3 K/mcL (0.6-4.6); Monocytes # 0.6 K/mcL (0.0-1.3); Neutrophils # 5.3 K/mcL (1.6-8.9)
[2016-11-06 04:22] LABS: Platelet Estimate Decreased (Normal)
[2016-11-06] MEDS: Vancomycin 1,250 MG in D5% in Water 250 ML IVPB SCH ×2 (04:27→16:45)
[2016-11-06] MEDS: Potassium Chloride 40 MEQ/200 ML BAG IVPB PRN ×3 (04:57→16:46)
[2016-11-06 05:30] LABS: INR 1.5; Prothrombin Time 15.8 Seconds (9.4-12.1)
[2016-11-06] MEDS: Ampicillin/Sulbactam 1,500 MG in 0.9 % Sodium Chloride Mini Bag 100 ML IVPB SCH (06:32)
[2016-11-06] MEDS: Pantoprazole 40 MG VIAL IVPB SCH (06:32)
[2016-11-06] MEDS: *HR* Heparin 5,000 UNIT/ML VIAL SQ SCH ×3 (06:32→21:37)
--- NOTE | 2016-11-06 07:06 | Pulmonology Progress Note ---
Date of Encounter: 11/06/16 Time of Encounter: 07:06 Assessment and Plan (1) Encephalopathy acute Current Visit: Yes Status: Acute Acute encephalopathy secondary to overdose of xanax and norco. Tox screen positive for opiates and benzos. [facility] report shows that the patient received 90 tablets of 1 mg Xanax and 90 tablets of hydrocodone/acetaminophen 7.5/325mg on October 24. Patient was expected to being waking up before this. However, she still only sometimes opens eyes to voice and does not follow commands. She has had some nystagmus that is improving. EEG done yesterday showed generalized encephalopathy with no signs of seizure activity. Cause of patient's continued altered mental status is unknown. Anoxic brain injury is a concern, however reports do not suggest a prolonged down time. Will place consult to neurology for further help with evaluation. - Continue minimal sedation if possible. - Consult to neurology. - MRI today (2) Overdose Current Visit: Yes Status: Acute Patient intentionally overdosed on Xanax 1mg and [place] 7.5/325. Tox screen positive for opiates and benzos. [facility] report shows that the patient received 90 tablets of 1 mg Xanax and 90 tablets of hydrocodone/acetaminophen 7.5/325mg on October 24. Acetaminophen level 158 > 211 > 3. Patient received NAC protocol for treatment. This was stopped when tylenol level was decreased and LFTs were normal. LFTs continue to be normal. - Monitory LFT and INR - Patient will require psych consult prior to discharge Qualifiers: Encounter type: initial encounter Injury intent: intentional self-harm Qualified Code(s): T50.902A - Poisoning by unspecified drugs, medicaments and biological substances, intentional self-harm, initial encounter (3) Acetaminophen overdose Current Visit: Yes Status: Acute Qualifiers: Encounter type: initial encounter Injury intent: intentional self-harm Qualified Code(s): T39.1X2A - Poisoning by 4-Aminophenol derivatives, intentional self-harm, initial encounter (4) Acute respiratory failure Current Visit: Yes Status: Acute Acute respiratory failure. Patient intubated in the ED for lethargy or apnea. Remains intubated. Patient had initially been slow to wake up. Now aspiration pneumonia presumably MRSA +. She was started on vancomycin. Unasyn switched to Cefepime since patient continued spiking fevers. - Will wean towards extubation when patient is more awake - Follow sputum cultures - On Vanc and Cefepime Qualifiers: Respiratory failure complication: unspecified whether with hypoxia or hypercapnia Qualified Code(s): J96.00 - Acute respiratory failure, unspecified whether with hypoxia or hypercapnia (5) Shock Current Visit: Yes Status: Acute Shock - Improved. Patient with worsening hypotension on admission. Believe this is secondary to vasodilation, more of a distributative shock. Patient much improved and no long requiring vasopressors. - Monitor blood pressure (6) Acute renal failure Current Visit: Yes Status: Acute Acute renal failure - improved. Patient with bump in creatinine and decreased urine output with hypotension on admission. Creatinine 0.65 today. Will monitor especially with starting vanc. - Monitor urine output and kidney function Qualifiers: Acute renal failure type: unspecified Qualified Code(s): N17.9 - Acute kidney failure, unspecified (7) Elevated INR Current Visit: Yes Status: Acute Patient with INR of 2.0 on admission. Family denies any history of EtOH use or liver disease. Patient is not on any anticoagulation. Today INR was 1.5. Liver ultrasound was negative for signs of cirrhosis. Ammonia level normal. Cause of elevated INR is unknown. Will check a DIC panel. - Hepatitis panel - Continue monitoring INR - DIC panel (8) COPD (chronic obstructive pulmonary disease) Current Visit: Yes Status: Acute Patient with history of COPD. Currently intubated. Concern for likely aspiration pneumonia. Continue duonebs scheduled. - Duonebs Qualifiers: COPD type: unspecified COPD Qualified Code(s): J44.9 - Chronic obstructive pulmonary disease, unspecified (9) DVT prophylaxis Current Visit: Yes Status: Acute Heparin Neuro: No sedation. Would have thought patient would start to wake up by now. EEG showed generalized encephalopathy. Consult to Neuro - recommended MRI. Pulm: Intubated on vent, no longer tolerated CPAP trial. Sputum culture concerning for MRSA - started on vanc and cefepime Cardiac: Hypotension improved. No longer requiring vasopressor. GI/Fluids/Electrolytes/Hydration: Continue tube feeds. Monitor LFT and INR. Liver ultrasound showed no cirrhosis. Hepatitis C + Renal: Urine output improving. [place]. Continue to monitor kidney infection ID: Spiked temperatures overnight. Sputum prelimb MRSA + on vanc and cefepime Heme/Onc: INR 1.5 today. Thrombocytopenic. Check DIC panel. Heparin Endocrine: Q6H accucheck Psych: Intentional OD. Family reports history of paranoia and delusion. Psych consult prior to discharge Dispo: ICU Subjective Principal diagnosis: Overdose Interval history: Ms Mirza is a 46yo female admitted 11/02/2016 after pssible intentiona overdose with [place] and Xanax. Now with an aspiration pneumonia Yesterday due to patient's fevers she was mendez-cultured and started on unasyn. Preliminary sputum cultures came back wothtwo gram negative rods and gram positive cocci presumed MRSA. Patient started on vancomycin last night. Overnight, she continued to spike temperatures with a Tmax of 102.8. Patient seen and examined this morning. She was on CPAP this morning however she became tacypneic and was switched back. Patient was on propofol this morning - weaning off. She sometimes opens eyes to voice but she does not follow commands. No nystagmus noted today. Lungs improved with better aeration. Abdomen soft, non-tender. No pedal edema noted. Objective PUL Vital signs: Last Vital Signs Temp 100.1 F H 11/06/16 04:00 Pulse 89 11/06/16 06:00 Resp 17 11/06/16 06:22 BP 111/63 11/06/16 06:00 Pulse Ox 97 11/06/16 06:22 General appearance: no acute distress, other (Intubated) Eyes: nonicteric ENT: oropharynx moist Effort: normal Auscultation: bilateral: diminished breath sounds Cardiovascular: regular rate and rhythm Gastrointestinal: soft, non-tender, non-distended Integumentary: normal Extremities: no cyanosis, no edema, no clubbing other (Sometimes opens eyes to voice but does not follow commands) Ventilator Settings Ventilator Settings: Ventilator Settings, Last 8 Hours Ventilator Mode CPAP Ventilator Mode CPAP Ventilator Mode VC+ Ventilator Mode VC+ Ventilator Mode VC+ Ventilator Mode VC+ Ventilator Mode VC+ Ventilator Mode VC+ Ventilator Mode VC+ Ventilator Mode VC+ Ventilator Mode VC+ Ventilator Mode VC+ Ventilator Mode VC+ Ventilator Tidal Volume 451 Setting Ventilator Tidal Volume 451 Setting Ventilator Tidal Volume 451 Setting Ventilator Tidal Volume 451 Setting Ventilator Tidal Volume 451 Setting Ventilator Tidal Volume 451 Setting Ventilator Tidal Volume 451 Setting Ventilator Tidal Volume 450 Setting Ventilator Tidal Volume 450 Setting Ventilator Tidal Volume 450 Setting Ventilator Tidal Volume 450 Setting Ventilator Tidal Volume 450 Setting Ventilator Respiratory Rate 14 Setting Ventilator Respiratory Rate 14 Setting Ventilator Respiratory Rate 14 Setting Ventilator Respiratory Rate 14 Setting Ventilator Respiratory Rate 14 Setting Ventilator Respiratory Rate 14 Setting Ventilator Respiratory Rate 14 Setting Ventilator Respiratory Rate 14 Setting Ventilator Respiratory Rate 14 Setting Ventilator Respiratory Rate 14 Setting Ventilator Respiratory Rate 14 Setting Ventilator Respiratory Rate 14 Setting Ventilator Respiratory Rate 14 Setting Actual Respiratory Rate 17 Actual Respiratory Rate 31 Actual Respiratory Rate 18 Actual Respiratory Rate 18 Actual Respiratory Rate 18 Actual Respiratory Rate 18 Actual Respiratory Rate 20 Actual Respiratory Rate 18 Actual Respiratory Rate 21 Actual Respiratory Rate 21 Actual Respiratory Rate 22 Actual Respiratory Rate 22 Actual Respiratory Rate 19 Positive End Expiratory 5 Pressure Positive End Expiratory 5 Pressure Positive End Expiratory 5 Pressure Positive End Expiratory 5 Pressure Positive End Expiratory 5 Pressure Positive End Expiratory 5 Pressure Positive End Expiratory 5 Pressure Positive End Expiratory 5 Pressure Positive End Expiratory 5 Pressure Positive End Expiratory 5 Pressure Positive End Expiratory 5 Pressure Positive End Expiratory 5 Pressure Positive End Expiratory 5 Pressure Peak Inspiratory Airway 23 Pressure Peak Inspiratory Airway 29 Pressure Peak Inspiratory Airway 29 Pressure Peak Inspiratory Airway 29 Pressure Peak Inspiratory Airway 20 Pressure Peak Inspiratory Airway 22 Pressure Peak Inspiratory Airway 22 Pressure Peak Inspiratory Airway 22 Pressure Peak Inspiratory Airway 20 Pressure Peak Inspiratory Airway 20 Pressure Peak Inspiratory Airway 20 Pressure Peak Inspiratory Airway 23 Pressure Results - Laboratory Findings CBC and BMP: 11/06/16 03:45 11/06/16 03:45 ABG ABG pH 7.35 pH Units (7.32-7.45) 11/04/16 04:37 ABG pCO2 40 mmHg (35-45) 11/04/16 04:37 ABG pO2 76 mmHg (85-104) L 11/04/16 04:37 ABG O2 Saturation 94 % (95-98) L 11/04/16 04:37 PT/INR, D-dimer PT 15.8 Seconds (9.4-12.1) H 11/06/16 03:45 Abnormal lab findings: Abnormal lab results RBC 3.06 M/mcL (3.82-4.97) L 11/06/16 03:45 Hgb 9.6 g/dL (11.5-15.4) L 11/06/16 03:45 Hct 28.6 % (35.3-44.9) L 11/06/16 03:45 Plt Count 66 K/mcL (140-400) L 11/06/16 03:45 Band Neutrophils % 10.0 % (0-4) H 11/06/16 03:45 Nucleated RBCs/100 WBC 0.2 /100 WBC (0) H 11/04/16 03:09 Platelet Estimate Decreased (Normal) L 11/06/16 03:45 PT 15.8 Seconds (9.4-12.1) H 11/06/16 03:45 ABG pO2 76 mmHg (85-104) L 11/04/16 04:37 ABG O2 Saturation 94 % (95-98) L 11/04/16 04:37 ABG Base Excess -3.3 mEq/L (-2.0 to 3.0) L 11/04/16 04:37 Mixed VBG pH 7.23 (7.34-7.36) L 11/03/16 12:00 Mixed VBG pCO2 51 mmHg (44-46) H 11/03/16 12:00 Mixed VBG pO2 113 mmHg (35-45) H 11/03/16 12:00 Mixed VBG Oxyhemoglobin 95.8 % (60-80) H 11/03/16 12:00 Potassium 3.4 mEq/L (3.5-4.5) L 11/06/16 03:45 BUN 6 mg/dL (7-20) L 11/06/16 03:45 Glucose 145 mg/dL (70-99) H 11/06/16 03:45 POC Glucose 127 (58-89) H 11/05/16 23:48 Serum Total Protein 5.4 g/dL (6.0-8.3) L 11/05/16 03:52 Albumin 2.7 g/dL (3.5-5.0) L 11/05/16 03:52 Albumin/Globulin Ratio 1.0 (1.1-2.2) L 11/05/16 03:52 Urine Blood Moderate (Negative) H 11/05/16 07:45 Urine Microscopic RBC 3-5 per hpf (0-3) H 11/05/16 07:45 Salicylates < 5.0 mg/dL (15-30) L 11/02/16 14:43 Urine Opiates Screen Positive ng/mL (Rnzjcn=284) H 11/02/16 17:15 Acetaminophen 3.0 mcg/mL (10-30) L 11/04/16 03:09 U Benzodiazepines Scrn Positive ng/mL (Diyonf=101) H 11/02/16 17:15 - Microbiology Findings Microbiology Findings: Microbiology, Last 48 Hours 11/05/16 07:45 Sputum Culture - Preliminary Sputum Gram Negative Adarsh Gram Negative Adarsh#2 Gram Positive Cocci - Diagnostic Findings Chest x-ray: report reviewed, image reviewed - Clinical Findings Intake & Output: Intake & Output 11/05/16 11/05/16 11/06/16 15:59 23:59 07:59 Intake Total 517 / 517 760 / 760 1221 / 1221 Output Total 775 / 775 1125 / 1125 775 / 775 Balance -258 / -258 -365 / -365 446 / 446 Weight 73.028 kg - VTE Reasons for not Prescribing Prophylaxis: Not indicated-Anticoagulated or INR therapeutic Documentation of Mechanical Device: Intermittent pneumatic compression device Consult Discharge Plan - Plan Referrals: NO,PCP [Primary Care Provider] -
[2016-11-06] MEDS: Budesonide/Formoterol 160/4.5 MDI IH SCH (07:57)
[2016-11-06] MEDS: Thiamine (B-1) 100 MG TABLET PO SCH (08:01)
[2016-11-06] MEDS: Chlorhexidine Rinse 15 ML MOUTHWASH MM SCH ×2 (08:01→21:37)
[2016-11-06 09:43] LABS: Hepatitis A Antibody IgM Nonreactive (Nonreactive); Hepatitis B Core IgM Nonreactive (Nonreactive)
[2016-11-06 09:44] LABS: Hepatitis C Virus Antibody Reactive (Nonreactive)
[2016-11-06] MEDS: Cefepime HCl 1,000 MG in D5% in Water (Mini-Bag+) 100 ML IVPB SCH ×2 (11:12→21:37)
[2016-11-06 11:41] LABS: INR 1.4
[2016-11-06 11:43] LABS: Activated Partial Thrombo Time 43.2 Seconds (26.0-36.0)
--- NOTE | 2016-11-06 12:54 | Neurology - Consult Note ---
Date of Encounter: 11/06/16 Time of Encounter: 12:53 Assessment and Plan (1) Encephalopathy acute Current Visit: Yes Status: Acute Patient developed worsening mental status this AM, characterized by reduced level of consciousness, not associated with focal neurological deficits, or seizure activity. The mental status at the time of this interview, appears improving and she is wide awake and has full eye pursuant movement now. No focal neurological deficits seen. Has all limb weakness flaccid but DTRs are well preserved therefore it is my impression that her mental status is still likely secondary to diffuse encephalopathy. This is also consistent with EEG showing diffuse slowing. Patient is to get MRI of brain to assess [employer] pathology. Please continue medical and supportive care History of Present Illness Chief complaint: not waking up HPI: Ms. Mirza is a 46 year old female with PMH significant for HTN, COPD, bilateral chronic knee pain, cervical spondylosis, who was initially admitted to ICU due to intended overdose (likely acetaminophen, hydrocondone and xanax per medical record) on 11/02/2016. She was mechanically intubated for airway protection. She does have history of COPD. Patient was found to have reduced level of consciousness this AM and nursing staff reports that she was only able to open eyes with strong sternal rub. Neurology was consulted for reduced level of consciousness. It was reported that since the admission, she did have episodes of agitation. There is no witnessed seizure like activity. no fever. Past Med Surg Social Fam HX - Past Medical History Medical history: COPD, GERD, hyperlipidemia, hypertension, kidney stones, renal disease, other Psychiatric history: anxiety, depression - Past Surgical History Surgical History: other - Social History Smoking Status: Current every day smoker Smokeless Tobacco Status: No Alcohol use: occasionally Drug use: unknown - Family History Mother Hx Family Cardiac Disorders: Yes Hx Family Endocrine Disorder: Yes Medications and Allergies ALPRAZolam [Xanax 1 MG Tablet] 1 mg PO TID PRN 08/07/15 [History] Albuterol Sulfate [Ventolin Hfa] 2 puff IH Q4H PRN 08/07/15 [History] Fluticasone/Salmeterol [Advair 250-50 Diskus] 1 puff IH BID 08/07/15 [History] Furosemide [Lasix] 40 mg PO DAILY 08/07/15 [History] HYDROcodone/Acet 7.5/325 mg [[place] 7.5-325 mg] 1 tab PO TID PRN 08/07/15 [ History] Ipratropium/Albuterol Neb [Duoneb] 3 ml IH QID PRN 08/07/15 [History] Omeprazole [PriLOSEC] 40 mg PO DAILY 08/07/15 [History] Potassium Chloride [Klor-Con Sprinkle] 40 meq PO DAILY 08/07/15 [History] Promethazine [Phenergan] 25 mg PO TID PRN 08/07/15 [History] Ranitidine HCl [Zantac] 150 mg PO BID 08/07/15 [History] Tizanidine HCl 4 mg PO Q8H PRN 08/07/15 [History] hydrALAZINE [HydrALAZINE] 10 mg PO DAILY 08/07/15 [History] Fenofibrate Nanocrystallized [Triglide] 160 mg PO DAILY 11/02/16 [History] Gabapentin [Neurontin] 300 mg PO TID 11/02/16 [History] Lisinopril/Hydrochlorothiazide [Zestoretic 20-25 mg Tablet] 0.5 tab PO DAILY [History] [place]-3/Dha/Epa/Fish Oil [Fish Oil 1,000 mg Softgel] 1,000 mg PO DAILY 11/02/16 [History] Allergies No Known Allergies Allergy (Verified 08/07/15 11:35) All Systems: A 10-system review of systems was performed and is negative for pertinent findings except as documented above in the HPI. Physical Examination - Vital Signs Vital Signs: Initial Vital Signs Temp Pulse Resp BP Pulse Ox 97.7 F 100 14 131/87 97 11/02/16 14:31 11/02/16 14:31 11/02/16 14:31 11/02/16 14:31 11/02/16 14:31 - Constitutional General appearance: chronically ill - Neurologic Sensorimotor examination: other (Unable to assess due to change in mental status ) Detailed motor examination: other (Limbs are flaccid, no spontaneous withdrawal to pain. ) Detailed sensory examination: other (Unable to assess) Posture: other (None) Reflexes: Biceps: 2+, Triceps: 2+, Brachioradialis: 2+, Patella: 2+, Achilles: 2 + Mental Status Examination: awake, alert, does not follow commands, opens eyes to voice, opens eyes to noxious stimulation, makes eye contact Cranial nerve examination: PERRL, EOMI, visual rothman intact (unable to assess. Patient is able follow visually. She however, does not follow commands. ), corneal reflexes brisk symmetrically Results - Laboratory Findings CBC and BMP: 11/06/16 11:25 11/06/16 11:25 Abnormal lab findings: Abnormal lab results RBC 3.06 M/mcL (3.82-4.97) L 11/06/16 03:45 Hgb 9.6 g/dL (11.5-15.4) L 11/06/16 03:45 Hct 28.6 % (35.3-44.9) L 11/06/16 03:45 Plt Count 71 K/mcL (140-400) L 11/06/16 11:25 Band Neutrophils % 10.0 % (0-4) H 11/06/16 03:45 Nucleated RBCs/100 WBC 0.2 /100 WBC (0) H 11/04/16 03:09 Platelet Estimate Decreased (Normal) L 11/06/16 03:45 PT 15.0 Seconds (9.4-12.1) H 11/06/16 11:25 APTT 43.2 Seconds (26.0-36.0) H 11/06/16 11:25 Fibrinogen 578 mg/dL (169-393) H 11/06/16 11:25 ABG pO2 76 mmHg (85-104) L 11/04/16 04:37 ABG O2 Saturation 94 % (95-98) L 11/04/16 04:37 ABG Base Excess -3.3 mEq/L (-2.0 to 3.0) L 11/04/16 04:37 Mixed VBG pH 7.23 (7.34-7.36) L 11/03/16 12:00 Mixed VBG pCO2 51 mmHg (44-46) H 11/03/16 12:00 Mixed VBG pO2 113 mmHg (35-45) H 11/03/16 12:00 Mixed VBG Oxyhemoglobin 95.8 % (60-80) H 11/03/16 12:00 BUN 6 mg/dL (7-20) L 11/06/16 03:45 Glucose 145 mg/dL (70-99) H 11/06/16 03:45 POC Glucose 127 (58-89) H 11/05/16 23:48 Serum Total Protein 5.4 g/dL (6.0-8.3) L 11/05/16 03:52 Albumin 2.7 g/dL (3.5-5.0) L 11/05/16 03:52 Albumin/Globulin Ratio 1.0 (1.1-2.2) L 11/05/16 03:52 Urine Blood Moderate (Negative) H 11/05/16 07:45 Urine Microscopic RBC 3-5 per hpf (0-3) H 11/05/16 07:45 Salicylates < 5.0 mg/dL (15-30) L 11/02/16 14:43 Urine Opiates Screen Positive ng/mL (Pvbdvs=917) H 11/02/16 17:15 Acetaminophen 3.0 mcg/mL (10-30) L 11/04/16 03:09 U Benzodiazepines Scrn Positive ng/mL (Rxuwli=409) H 11/02/16 17:15 Hepatitis C Ab Screen Reactive (Nonreactive) H 11/05/16 07:50 Consult Discharge Plan - Plan Referrals: NO,PCP [Primary Care Provider] -
[2016-11-07 03:08] LABS: Basophils % 0.2 %; Hemoglobin 8.8 g/dL (11.5-15.4); Red Blood Count 2.84 M/mcL (3.82-4.97); Red Cell Distribution Width 12.3 % (11.5-14.5)
[2016-11-07 03:10] LABS: Eosinophils # 0.2 K/mcL (0.0-0.6); Eosinophils % 2.9 %; Hematocrit 27.2 % (35.3-44.9); Immature Granulocytes % 0.5 % (0-4); Immature Platelets 8.9 % (1.1-6.1); Lymphocytes # 1.8 K/mcL (0.6-4.6); Lymphocytes % 29.3 %; Mean Corpuscular HGB Conc 32.4 g/dL (31.6-35.5); Mean Corpuscular Volume 95.8 fL (83.0-100.0); Monocytes # 0.3 K/mcL (0.0-1.3); Monocytes % 5.3 %; Neutrophils # 3.8 K/mcL (1.6-8.9); Platelet Count 85 K/mcL (140-400); Segmented Neutrophils % 61.8 %
[2016-11-07 03:12] LABS: INR 1.4; Prothrombin Time 14.7 Seconds (9.4-12.1)
[2016-11-07 03:21] LABS: BUN/Creatinine Ratio 12 (6-26); Blood Urea Nitrogen 7 mg/dL (7-20); Calcium 8.8 mg/dL (8.6-10.8); Carbon Dioxide 29 mEq/L (19-29); Chloride 110 mEq/L (98-109); Glucose 132 mg/dL (70-99); Magnesium 1.9 mg/dL (1.6-2.6); Osmolality,Calculated 298 (280-300); Phosphorous 3.7 mg/dL (2.3-4.7); Potassium 3.6 mEq/L (3.5-4.5); Sodium 144 mEq/L (136-145); eGFR For African Americans > 60 (> 60); eGFR For Non-African Americans > 60 (> 60)
[2016-11-07] MEDS: Magnesium Sulfate 2 GM in D5% in Water 100 ML IVPB PRN (04:32)
[2016-11-07] MEDS: Potassium Chloride 40 MEQ/200 ML BAG IVPB PRN ×2 (04:35→05:56)
[2016-11-07] MEDS: Pantoprazole 40 MG VIAL IVPB SCH (05:00)
[2016-11-07] MEDS: *HR* Heparin 5,000 UNIT/ML VIAL SQ SCH ×3 (05:00→21:36)
[2016-11-07] MEDS ORDERED: Vancomycin 1,750 MG in D5% in Water 250 ML IVPB SCH (05:00)
[2016-11-07] MEDS: Vancomycin 1,750 MG in D5% in Water 500 ML IVPB SCH ×2 (05:01→17:04)
--- NOTE | 2016-11-07 06:33 | Pulmonology Progress Note ---
Date of Encounter: 11/07/16 Time of Encounter: 06:33 Assessment and Plan (1) Acute respiratory failure Current Visit: Yes Status: Acute intubated 11/02 in ED for airway protection due to encephalopathy CPAP well following commands plan to extubate - extubated 11/07 to [place] at 0900 concern for aspiraton pneumonia with fevers and purulent sputum - sputum culture 11/05 Enterobacter cloacae, Klebsiella pneumoniae, and MRSA - started on Vancomycin and Unasyn 11/05 - escalated to Vancomycin and Cefepime 11/06 - day 3 on antibiotics continue through November 12 afebrile since 11/05 Qualifiers: Respiratory failure complication: unspecified whether with hypoxia or hypercapnia Qualified Code(s): J96.00 - Acute respiratory failure, unspecified whether with hypoxia or hypercapnia (2) Encephalopathy acute Current Visit: Yes Status: Acute secondary to suicide attempt with OD of Xanax and [place] - concern for possible anoxic brain injury - EEG 11/02 - severe generalized encephalopathy without evidence of epileptiform activity Neuro consulted and will defer MRI to expertise - agree with diffuse encephalopathy - MRI Brain 11/06 - no evidence of acute ischemia, small incidental pineal cyst, minimal chronic small vessel ischemic disease since prior study (3) Shock Current Visit: Yes Status: Acute improved suspect likely distributive shock adequately volume resuscitated off vasopressors BPs stable lactic acid levels normalized (4) Aspiration pneumonia Current Visit: Yes Status: Acute purulent sputum and fevers polycmicrobial gram stain sputum culture 11/05 grew Enterobacter cloacae, Klebsiella pneumoniae, and MRSA - on Vancomycin day 3 and Cefepime day 2 - pharmacy to dose, Vanc trough 11.7 - culture sensitive to Cefepime, Zosyn, and Bactrim - continue current regimen through November 12 Qualifiers: Aspiration pneumonia type: unspecified Laterality: unspecified laterality Lung location: unspecified part of lung Qualified Code(s): J69.0 - Pneumonitis due to inhalation of food and vomit (5) Thrombocytopenia Current Visit: Yes Status: Acute improved on 11/03 175 --> 96, currently 85 concern for early stages of cirrhosis despite no radiographic evidece Hepatitis C antibody positive Low 4T score, making HIT unlikely DIC panel - no mention of schistocytes - fibrinogen 578, Ddimer 491 with elevated PT/PTT (6) Acute renal failure Current Visit: Yes Status: Resolved resolved suspect ATN/hypoperfusion from hypotension and shock on admission Vanc trough 11.7 Qualifiers: Acute renal failure type: unspecified Qualified Code(s): N17.9 - Acute kidney failure, unspecified (7) Elevated INR Current Visit: Yes Status: Acute INR 2 on admission, likely secondary to APAP toxicity - slowly improving with Vit K challenge - INR today 1.4 completed NAC protocol no history of heavy EtOH use or liver disease - Liver US 11/03 no definite cirrhosis - Hep C positive DIC panel ordered (8) Suicide attempt by drug ingestion Current Visit: Yes Status: Acute ingestion of Xanax and [place] APAP toxicity, resolved remains intubated for respiratory failure secondary to acute encephalopathy once extubated will need psych consult and sitter with suicide precautions extubated 11/07 consulted Psychiatry sitter for precautions Qualifiers: Encounter type: initial encounter Qualified Code(s): T50.902A - Poisoning by unspecified drugs, medicaments and biological substances, intentional self- harm, initial encounter (9) Acetaminophen overdose Current Visit: Yes Status: Acute [place] 7.5/325 overdose initial APAP level 158, resolved <3 after NAC protocol treatment LFTs continue to be normal Qualifiers: Encounter type: initial encounter Injury intent: intentional self-harm Qualified Code(s): T39.1X2A - Poisoning by 4-Aminophenol derivatives, intentional self-harm, initial encounter (10) DVT prophylaxis Current Visit: No Status: Acute Heparin SQ (11) Anemia Current Visit: Yes Status: Acute worsening anemia suspect early stages of cirrhosis no signs of active bleeding MCV normocytic Vit B12/Folate and iron studies ordered Qualifiers: Anemia type: unspecified type Qualified Code(s): D64.9 - Anemia, unspecified Subjective Principal diagnosis: Overdose Interval history: No major events overnight. Patient seen and examined at bedside. She appears in no acute distress. She is awake and alert following simple commands. She is tolerating CPAP trial well today. Plan to extubate later. She denies chest pain and abdominal pain but shaking her head no. Objective PUL Vital signs: Last Vital Signs Temp 97.6 F 11/07/16 05:26 Pulse 71 11/07/16 06:00 Resp 18 11/07/16 06:23 BP 116/70 11/07/16 06:23 Pulse Ox 98 11/07/16 06:23 General appearance: no acute distress, alert Eyes: nonicteric, other (PERRL) Neck: supple Effort: normal (Mechanically ventilated) Auscultation: bilateral: diminished breath sounds Cardiovascular: regular rate and rhythm Gastrointestinal: normoactive bowel sounds, soft, non-tender, non-distended Integumentary: normal Extremities: no edema, no clubbing, pulses normal Musculoskeletal: no deformities, ROM normal non-focal exam, pupils equal and round, motor strength normal and symmetric ( Sluggish, follow simple commands), unable to assess due to mental status Ventilator Settings Ventilator Settings: Ventilator Settings, Last 8 Hours Ventilator Mode CPAP Ventilator Mode VC+ Ventilator Mode VC+ Ventilator Mode VC+ Ventilator Mode VC+ Ventilator Mode VC+ Ventilator Mode VC+ Ventilator Mode VC+ Ventilator Mode VC+ Ventilator Mode VC+ Ventilator Mode VC+ Ventilator Mode VC+ Ventilator Tidal Volume 450 Setting Ventilator Tidal Volume 450 Setting Ventilator Tidal Volume 450 Setting Ventilator Tidal Volume 450 Setting Ventilator Tidal Volume 450 Setting Ventilator Tidal Volume 450 Setting Ventilator Tidal Volume 450 Setting Ventilator Tidal Volume 450 Setting Ventilator Tidal Volume 450 Setting Ventilator Tidal Volume 450 Setting Ventilator Tidal Volume 450 Setting Ventilator Respiratory Rate 14 Setting Ventilator Respiratory Rate 14 Setting Ventilator Respiratory Rate 14 Setting Ventilator Respiratory Rate 14 Setting Ventilator Respiratory Rate 14 Setting Ventilator Respiratory Rate 14 Setting Ventilator Respiratory Rate 14 Setting Ventilator Respiratory Rate 14 Setting Ventilator Respiratory Rate 14 Setting Ventilator Respiratory Rate 14 Setting Ventilator Respiratory Rate 14 Setting Actual Respiratory Rate 20 Actual Respiratory Rate 19 Actual Respiratory Rate 17 Actual Respiratory Rate 17 Actual Respiratory Rate 16 Actual Respiratory Rate 14 Actual Respiratory Rate 14 Actual Respiratory Rate 18 Actual Respiratory Rate 14 Actual Respiratory Rate 19 Actual Respiratory Rate 15 Actual Respiratory Rate 16 Positive End Expiratory 5 Pressure Positive End Expiratory 5 Pressure Positive End Expiratory 5 Pressure Positive End Expiratory 5 Pressure Positive End Expiratory 5 Pressure Positive End Expiratory 5 Pressure Positive End Expiratory 5 Pressure Positive End Expiratory 5 Pressure Positive End Expiratory 5 Pressure Positive End Expiratory 5 Pressure Positive End Expiratory 5 Pressure Positive End Expiratory 5 Pressure Peak Inspiratory Airway 16 Pressure Peak Inspiratory Airway 17 Pressure Peak Inspiratory Airway 17 Pressure Peak Inspiratory Airway 19 Pressure Peak Inspiratory Airway 19 Pressure Peak Inspiratory Airway 18 Pressure Peak Inspiratory Airway 17 Pressure Peak Inspiratory Airway 18 Pressure Peak Inspiratory Airway 17 Pressure Peak Inspiratory Airway 17 Pressure Peak Inspiratory Airway 17 Pressure Peak Inspiratory Airway 16 Pressure Results - Laboratory Findings CBC and BMP: 11/07/16 02:53 11/07/16 02:53 ABG ABG pH 7.35 pH Units (7.32-7.45) 11/04/16 04:37 ABG pCO2 40 mmHg (35-45) 11/04/16 04:37 ABG pO2 76 mmHg (85-104) L 11/04/16 04:37 ABG O2 Saturation 94 % (95-98) L 11/04/16 04:37 PT/INR, D-dimer PT 14.7 Seconds (9.4-12.1) H 11/07/16 02:53 D-Dimer 491 ng/mLFEU (0-500) 11/06/16 11:25 Abnormal lab findings: Abnormal lab results RBC 2.84 M/mcL (3.82-4.97) L 11/07/16 02:53 Hgb 8.8 g/dL (11.5-15.4) L 11/07/16 02:53 Hct 27.2 % (35.3-44.9) L 11/07/16 02:53 Plt Count 85 K/mcL (140-400) L 11/07/16 02:53 Band Neutrophils % 10.0 % (0-4) H 11/06/16 03:45 Nucleated RBCs/100 WBC 0.2 /100 WBC (0) H 11/04/16 03:09 Platelet Estimate Decreased (Normal) L 11/06/16 03:45 Immature Plt Fraction 8.9 % (1.1-6.1) H 11/07/16 02:53 PT 14.7 Seconds (9.4-12.1) H 11/07/16 02:53 APTT 43.2 Seconds (26.0-36.0) H 11/06/16 11:25 Fibrinogen 578 mg/dL (169-393) H 11/06/16 11:25 ABG pO2 76 mmHg (85-104) L 11/04/16 04:37 ABG O2 Saturation 94 % (95-98) L 11/04/16 04:37 ABG Base Excess -3.3 mEq/L (-2.0 to 3.0) L 11/04/16 04:37 Mixed VBG pH 7.23 (7.34-7.36) L 11/03/16 12:00 Mixed VBG pCO2 51 mmHg (44-46) H 11/03/16 12:00 Mixed VBG pO2 113 mmHg (35-45) H 11/03/16 12:00 Mixed VBG Oxyhemoglobin 95.8 % (60-80) H 11/03/16 12:00 Chloride 110 mEq/L (98-109) H 11/07/16 02:53 Glucose 132 mg/dL (70-99) H 11/07/16 02:53 POC Glucose 150 (58-89) H 11/07/16 06:20 Serum Total Protein 5.4 g/dL (6.0-8.3) L 11/05/16 03:52 Albumin 2.7 g/dL (3.5-5.0) L 11/05/16 03:52 Albumin/Globulin Ratio 1.0 (1.1-2.2) L 11/05/16 03:52 Urine Blood Moderate (Negative) H 11/05/16 07:45 Urine Microscopic RBC 3-5 per hpf (0-3) H 11/05/16 07:45 Salicylates < 5.0 mg/dL (15-30) L 11/02/16 14:43 Urine Opiates Screen Positive ng/mL (Lvemum=951) H 11/02/16 17:15 Acetaminophen 3.0 mcg/mL (10-30) L 11/04/16 03:09 U Benzodiazepines Scrn Positive ng/mL (Gtunne=417) H 11/02/16 17:15 Hepatitis C Ab Screen Reactive (Nonreactive) H 11/05/16 07:50 - Microbiology Findings Microbiology Findings: Microbiology, Last 48 Hours 11/05/16 07:45 Sputum Culture - Final Sputum Enterobacter cloacae Klebsiella pneumoniae Methicillin Resistant S.aureus 11/05/16 07:23 Blood Culture - Preliminary Peripheral Venipuncture No growth. 11/05/16 07:09 Blood Culture - Preliminary Peripheral Venipuncture No growth. - Diagnostic Findings Additional studies: KUB X-Ray 11/02/16 22:30 IMPRESSION: Enteric tube tip directed antegrade in the distal stomach as above. D/ / Drew Kelly MD / Drew Kelly MD Interpreting Provider: Drew Kelly MD Liver Ultrasound 11/03/16 14:00 IMPRESSION: 1. No definite cirrhosis. 2. Status post cholecystectomy. 3. Small right upper quadrant ascites. 4. Small right-sided pleural effusion. D/ / Laine Macias MD / Laine Macias MD Interpreting Provider: Laine Macias MD Chest X-Ray 11/06/16 06:00 IMPRESSION: Little change compared with the previous evaluation. Stable life support system and central line. Mild right lower lobe atelectatic changes and small right effusion. D/ / 11/06/2016 07:25:39 Xin Cobb MD / hermila Interpreting Provider: Xin Cobb MD Brain MRI 11/06/16 08:15 IMPRESSION: A couple of tiny foci of high signal abnormality within the basal ganglia bilaterally involving the globus pallidus. Minimal chronic small vessel ischemic disease is suspected which is new since the prior study. Small incidental pineal cyst. No evidence of acute ischemia. D/ / 11/06/2016 15:20:58 Brady Villatoro MD / hermila Interpreting Provider: Brady Villatoro MD - Clinical Findings Intake & Output: Intake & Output 11/06/16 11/06/16 11/07/16 15:59 23:59 07:59 Intake Total 545 / 545 836.5 / 836.5 789.5 / 789.5 Output Total 600 / 600 400 / 400 525 / 525 Balance -55 / -55 436.5 / 436.5 264.5 / 264.5 Weight 74.5 kg - VTE Reasons for not Prescribing Prophylaxis: Not indicated-Anticoagulated or INR therapeutic Documentation of Mechanical Device: Intermittent pneumatic compression device Consult Discharge Plan - Plan Referrals: NO,PCP [Primary Care Provider] -
[2016-11-07] MEDS: Chlorhexidine Rinse 15 ML MOUTHWASH MM SCH ×2 (08:32→21:37)
[2016-11-07] MEDS: Thiamine (B-1) 100 MG TABLET PO SCH (08:32)
[2016-11-07 11:32] LABS: Magnesium 2.2 mg/dL (1.6-2.6); Potassium 4.3 mEq/L (3.5-4.5)
[2016-11-07] MEDS: Cefepime HCl 1,000 MG in D5% in Water (Mini-Bag+) 100 ML IVPB SCH ×2 (11:35→21:36)
--- NOTE | 2016-11-07 16:47 | Consult Note ---
Date of Encounter: 11/07/16 Time of Encounter: 15:50 Assessment & Recommendation (1) Delirium Current visit: Yes Status: Acute Assessment & Recommendation: Patient is currently confused and reporting some paranoia regarding her and other people poisoning her. This may actually be a chronic issue but it is unclear at this time as patient is still very sedated from her overdose. I will continue to follow up with the patient tomorrow as she starts to clear from her overdose and attempt to figure out when some of these symptoms started for the patient. She is very guarded with this provider because she does not want to be admitted to a psychiatric hospital. Outpatient records were reviewed and she didcall to his office to let her doctor know that she was having hallucinations and some paranoia a few months ago. (2) Overdose Current visit: Yes Status: Acute Assessment & Recommendation: Patient appears overdosed intentionally on [place] and Xanax. She filled these meds on October 24 so a large portion of that would probably have remained because patient's family states that she does not misuse her meds on a regular basis. This does appear to be a suicide attempt. One-to-one observation will be necessary until patient is stable enough for transfer to one for psychiatric stabilization. Qualifiers: Encounter type: initial encounter Injury intent: intentional self-harm Qualified Code(s): T50.902A - Poisoning by unspecified drugs, medicaments and biological substances, intentional self-harm, initial encounter History of Present Illness Patient: new to practice Requesting Physician: Dipak Cuba MD Reason for consult: OD History of present illness: Ms. Mirza is a 46 year old female with a history of depression and anxiety who presented to the hospital after an intentional overdose on [place] and Xanax. Patient had been talking to one of her daughters on face time and was lethargic. The daughter was concerned and thought she may have taken something and EMS was called. Patient was found with an empty bottle of Xanax and [place]. Based on the report that was cold in the ER patient had 90 tablets of Xanax and 90 tablets of [place] on the and the bottles were empty when they arrived on the scene. Patient required intubation and was extubated this morning. She is currently still using. Patient is somewhat groggy and confused but is able to report that she states that this was not a suicide attempt. However patient was found with a gun next to her bed as well. She also reported to one of her daughters that this was a suicide attempt. Patient has been increasingly paranoid and delusional over the past few months. Family is not aware of any history of diagnosis of schizophrenia or bipolar disorder. Family also noticed that she is increasingly taoist and has been baptized twice over the past month but she was not taoist before. She also has a lot of memory issues. As far as the family is aware patient did not misuse her medications. Family does report previous history of an overdose. No hospitalizations that they know of. Patient is afraid that this provider will "committ me." She does not want to verbalize her concerns but family states that she has been very anxious and worried that people are poisoning her. Daughters also stated that her mom thinks that they were switched at and that there are "doubles" about her daughter's walking around town. CC: Dipak Cuba MD Past Med Surg Social Fam HX - Past Medical History Medical history: COPD, GERD, hyperlipidemia, hypertension, kidney stones, renal disease, other - Past Psychiatric History Psychiatric history: Reports: anxiety, depression Past psychiatric history details: Past history of suicide attempt. Over the past 6 months patient has been reporting paranoia and hallucinations that have worsened. There is no known history of drug abuse. Patient does routinely get [place] and Xanax from PCP. Family psychiatric history: Yes Family Psychiatric History Details: Family reports that she has 2 cousins with schizophrenia. Family History of Suicide: None - Past Surgical History Surgical History: other - Social History Smoking Status: Current every day smoker Smokeless Tobacco Status: No Alcohol use: occasionally Drug use: unknown - Family History Mother Hx Family Cardiac Disorders: Yes Hx Family Endocrine Disorder: Yes Medications & Allergies ALPRAZolam [Xanax 1 MG Tablet] 1 mg PO TID PRN 08/07/15 [History] Albuterol Sulfate [Ventolin Hfa] 2 puff IH Q4H PRN 08/07/15 [History] Fluticasone/Salmeterol [Advair 250-50 Diskus] 1 puff IH BID 08/07/15 [History] Furosemide [Lasix] 40 mg PO DAILY 08/07/15 [History] HYDROcodone/Acet 7.5/325 mg [[place] 7.5-325 mg] 1 tab PO TID PRN 08/07/15 [ History] Ipratropium/Albuterol Neb [Duoneb] 3 ml IH QID PRN 08/07/15 [History] Omeprazole [PriLOSEC] 40 mg PO DAILY 08/07/15 [History] Potassium Chloride [Klor-Con Sprinkle] 40 meq PO DAILY 08/07/15 [History] Promethazine [Phenergan] 25 mg PO TID PRN 08/07/15 [History] Ranitidine HCl [Zantac] 150 mg PO BID 08/07/15 [History] Tizanidine HCl 4 mg PO Q8H PRN 08/07/15 [History] hydrALAZINE [HydrALAZINE] 10 mg PO DAILY 08/07/15 [History] Fenofibrate Nanocrystallized [Triglide] 160 mg PO DAILY 11/02/16 [History] Gabapentin [Neurontin] 300 mg PO TID 11/02/16 [History] Lisinopril/Hydrochlorothiazide [Zestoretic 20-25 mg Tablet] 0.5 tab PO DAILY [History] [place]-3/Dha/Epa/Fish Oil [Fish Oil 1,000 mg Softgel] 1,000 mg PO DAILY 11/02/16 [History] Allergies No Known Allergies Allergy (Verified 08/07/15 11:35) Review of Systems ROS limited: due to patient condition Neurological: Reports: confusion, memory loss Psychiatric: Reports: depression, anxiety, abnormal sleep pattern, auditory hallucinations, anhedonia, hopelessness Mental Status Exam Patient orientation: Yes Person, Yes Place Level of alertness: Sedated Patient appearance: Unkempt Behavior: guarded, distractible Psychomotor activity: Slowed Eye contact: Fleeting Contact Mood description: Euthymic/stable Affect description: blunted, dysphoric Speech pattern: Slowed, Slurred Speech volume: Soft/Quiet Thought process: [place] Thought content: No Suicidal ideation, No Homicidal ideation, Yes Paranoid delusion Perceptual disturbances: No Auditory hallucinations, No Visual hallucinations Attention span: Unable to Focus Memory description: Immediate Impaired, Recent Impaired, Remote Impaired Patient reliability: Not Reliable Historian Intelligence estimate: Average Judgment: Poor Insight: None Results - Vital Signs Vital signs: Temp Pulse Resp BP Pulse Ox 98.8 F 88 22 124/75 97 11/07/16 15:00 05/27/17 16:00 11/07/16 16:00 11/07/16 16:00 11/07/16 16:00 - Labs Labs: Laboratory Last Values WBC 6.2 K/mcL (4.3-11.1) 11/07/16 02:53 RBC 2.84 M/mcL (3.82-4.97) L 11/07/16 02:53 Hgb 8.8 g/dL (11.5-15.4) L 11/07/16 02:53 Hct 27.2 % (35.3-44.9) L 11/07/16 02:53 MCV 95.8 fL (83.0-100.0) 11/07/16 02:53 MCH 31.0 pg (28.0-33.3) 11/07/16 02:53 MCHC 32.4 g/dL (31.6-35.5) 11/07/16 02:53 RDW 12.3 % (11.5-14.5) 11/07/16 02:53 Plt Count 85 K/mcL (140-400) L 11/07/16 02:53 MPV 12.0 fL (9.4-12.4) 11/07/16 02:53 Immature Gran % 0.5 % (0-4) 11/07/16 02:53 Seg Neutrophils % 61.8 % 11/07/16 02:53 Band Neutrophils % 10.0 % (0-4) H 11/06/16 03:45 Lymphocytes % 29.3 % 11/07/16 02:53 Monocytes % 5.3 % 11/07/16 02:53 Eosinophils % 2.9 % 11/07/16 02:53 Basophils % 0.2 % 11/07/16 02:53 Neutrophils # 3.8 K/mcL (1.6-8.9) 11/07/16 02:53 Lymphocytes # 1.8 K/mcL (0.6-4.6) 11/07/16 02:53 Monocytes # 0.3 K/mcL (0.0-1.3) 11/07/16 02:53 Eosinophils # 0.2 K/mcL (0.0-0.6) 11/07/16 02:53 Basophils # 0.0 K/mcL (0.0-0.2) 11/07/16 02:53 Nucleated RBCs/100 WBC 0.2 /100 WBC (0) H 11/04/16 03:09 Platelet Estimate Decreased (Normal) L 11/06/16 03:45 Immature Plt Fraction 8.9 % (1.1-6.1) H 11/07/16 02:53 PT 14.7 Seconds (9.4-12.1) H 11/07/16 02:53 INR 1.4 11/07/16 02:53 APTT 43.2 Seconds (26.0-36.0) H 11/06/16 11:25 Fibrinogen 578 mg/dL (169-393) H 11/06/16 11:25 D-Dimer 491 ng/mLFEU (0-500) 11/06/16 11:25 ABG pH 7.35 pH Units (7.32-7.45) 11/04/16 04:37 ABG pCO2 40 mmHg (35-45) 11/04/16 04:37 ABG pO2 76 mmHg (85-104) L 11/04/16 04:37 ABG HCO3 22.1 mEQ/L (21-27) 11/04/16 04:37 ABG Total CO2 23.3 mEq/L (20-26) 11/04/16 04:37 ABG O2 Saturation 94 % (95-98) L 11/04/16 04:37 ABG Base Excess -3.3 mEq/L (-2.0 to 3.0) L 11/04/16 04:37 Mixed VBG pH 7.23 (7.34-7.36) L 11/03/16 12:00 Mixed VBG pCO2 51 mmHg (44-46) H 11/03/16 12:00 Mixed VBG pO2 113 mmHg (35-45) H 11/03/16 12:00 Mixed VBG Oxyhemoglobin 95.8 % (60-80) H 11/03/16 12:00 Respiration Rate 14 11/04/16 04:37 Blood Gas Modality VCT 11/04/16 04:37 Inspired O2 30 % 11/04/16 04:37 Tidal Volume 450 cc 11/04/16 04:37 PEEP 5 cm H2O 11/04/16 04:37 Sodium 144 mEq/L (136-145) 11/07/16 02:53 Potassium 4.3 mEq/L (3.5-4.5) 11/07/16 11:14 Chloride 110 mEq/L (98-109) H 11/07/16 02:53 Carbon Dioxide 29 mEq/L (19-29) 11/07/16 02:53 BUN 7 mg/dL (7-20) 11/07/16 02:53 Creatinine 0.59 mg/dL (0.57-1.11) 11/07/16 02:53 Est GFR ( Amer) > 60 (> 60) 11/07/16 02:53 Est GFR (Non-Af Amer) > 60 (> 60) 11/07/16 02:53 BUN/Creatinine Ratio 12 (6-26) 11/07/16 02:53 Glucose 132 mg/dL (70-99) H 11/07/16 02:53 POC Glucose 104 (58-89) H 11/07/16 10:39 Est Mean Plasma Glucose 85 mg/dl 11/03/16 01:57 Hemoglobin A1c 4.6 % (-5.6) 11/03/16 01:57 Calculated Osmolality 298 (280-300) 11/07/16 02:53 Lactic Acid 0.7 mmol/L (0.5-2.2) 11/03/16 14:40 Calcium 8.8 mg/dL (8.6-10.8) 11/07/16 02:53 Ionized Calcium 1.20 mmol/L (1.15-1.35) 11/07/16 02:53 Phosphorus 3.7 mg/dL (2.3-4.7) 11/07/16 02:53 Magnesium 2.2 mg/dL (1.6-2.6) 11/07/16 11:14 Total Bilirubin 0.5 mg/dL (0.2-1.2) 11/05/16 03:52 Direct Bilirubin 0.4 mg/dL (0.0-0.5) 11/03/16 01:57 Indirect Bilirubin 0.4 mg/dL (0.0-1.2) 11/03/16 01:57 AST 12 Units/L (5-34) 11/05/16 03:52 ALT 11 Units/L (0-55) 11/05/16 03:52 Alkaline Phosphatase 69 Units/L (38-126) 11/05/16 03:52 Ammonia 20 mcmol/L (18-72) 11/05/16 07:50 Serum Total Protein 5.4 g/dL (6.0-8.3) L 11/05/16 03:52 Albumin 2.7 g/dL (3.5-5.0) L 11/05/16 03:52 Globulin 2.7 g/dL (2.4-3.5) 11/05/16 03:52 Albumin/Globulin Ratio 1.0 (1.1-2.2) L 11/05/16 03:52 TSH 0.878 mcIU/mL (0.350-4.840) 11/03/16 01:57 Urine Color Yellow (Yellow) 11/05/16 07:45 Urine Clarity Clear (Clear) 11/05/16 07:45 Urine pH 6.0 pH Units (5.0-8.0) 11/05/16 07:45 Ur Specific [place] 1.015 (1.010-1.025) 11/05/16 07:45 Urine Protein Negative mg/dL (Neg-Trace) 11/05/16 07:45 Urine Glucose (UA) Normal mg/dL (Normal) 11/05/16 07:45 Urine Ketones Negative mg/dL (Negative) 11/05/16 07:45 Urine Blood Moderate (Negative) H 11/05/16 07:45 Urine Nitrite Negative (Negative) 11/05/16 07:45 Urine Bilirubin Negative (Negative) 11/05/16 07:45 Urine Urobilinogen Normal mg/dL (Normal) 11/05/16 07:45 Ur Leukocyte Esterase Negative (Negative) 11/05/16 07:45 Urine Microscopic RBC 3-5 per hpf (0-3) H 11/05/16 07:45 Urine Microscopic WBC 0-3 per hpf (0-3) 11/05/16 07:45 Ur Squamous Epith Cells Few per lpf (None-Few) 11/05/16 07:45 Urine Bacteria None Seen per hpf (None-Few) 11/05/16 07:45 Hyaline Casts None Seen per lpf (None-Few) 11/05/16 07:45 Ur Culture Indicated? NO (NO) 11/05/16 07:45 Urine Test Negative (Negative) 11/03/16 12:15 Vancomycin Trough 11.7 mcg/mL (10-20) 11/07/16 02:53 Salicylates < 5.0 mg/dL (15-30) L 11/02/16 14:43 Urine Opiates Screen Positive ng/mL (Mwshzb=298) H 11/02/16 17:15 Acetaminophen 3.0 mcg/mL (10-30) L 11/04/16 03:09 Ur Barbiturates Screen Negative ng/mL (Zetnvl=274) 11/02/16 17:15 Ur Phencyclidine Scrn Negative ng/mL (Cutoff=25) 11/02/16 17:15 Ur Amphetamines Screen Negative ng/mL (Qctnmd=0799) 11/02/16 17:15 U Benzodiazepines Scrn Positive ng/mL (Sfokeh=491) H 11/02/16 17:15 Urine Cocaine Screen Negative ng/mL (Cutoff= 300) 11/02/16 17:15 U Marijuana (THC) Screen Negative ng/mL (Cutoff = 50) 11/02/16 17:15 Ethyl Alcohol < 10 mg/dL (0-10) 11/02/16 14:43 Hepatitis A IgM Ab Nonreactive (Nonreactive) 11/05/16 07:50 Hep Bs Antigen Nonreactive (Nonreactive) 11/05/16 07:50 Hep B Core IgM Ab Nonreactive (Nonreactive) 11/05/16 07:50 Hepatitis C Ab Screen Reactive (Nonreactive) H 11/05/16 07:50 Specimen Rejected MCV [place] 11/03/16 01:57 Consult Discharge Plan - Plan Referrals: NO,PCP [Primary Care Provider] -
[2016-11-08 05:04] LABS: Basophils % 0.2 %; Eosinophils # 0.3 K/mcL (0.0-0.6); Eosinophils % 3.4 %; Hematocrit 29.5 % (35.3-44.9); Hemoglobin 9.6 g/dL (11.5-15.4); Immature Granulocytes % 0.8 % (0-4); Lymphocytes # 1.7 K/mcL (0.6-4.6); Mean Corpuscular HGB Conc 32.5 g/dL (31.6-35.5); Mean Corpuscular Hemoglobin 30.9 pg (28.0-33.3); Mean Corpuscular Volume 94.9 fL (83.0-100.0); Mean Platelet Volume 11.5 fL (9.4-12.4); Monocytes # 0.5 K/mcL (0.0-1.3); Monocytes % 5.6 %; Neutrophils # 6.1 K/mcL (1.6-8.9); Platelet Count 121 K/mcL (140-400); Red Blood Count 3.11 M/mcL (3.82-4.97); Red Cell Distribution Width 12.2 % (11.5-14.5); Retculocyte # 0.06 M/mcL (0.05-0.10); Reticulocyte % 1.9 % (1.6-2.8)
[2016-11-08 05:16] LABS: Ionized Calcium 1.25 mmol/L (1.15-1.35)
[2016-11-08 05:17] LABS: BUN/Creatinine Ratio 8 (6-26); Blood Urea Nitrogen 5 mg/dL (7-20); Calcium 9.4 mg/dL (8.6-10.8); Carbon Dioxide 28 mEq/L (19-29); Chloride 109 mEq/L (98-109); Glucose 92 mg/dL (70-99); Magnesium 1.8 mg/dL (1.6-2.6); Osmolality,Calculated 297 (280-300); Phosphorous 4.3 mg/dL (2.3-4.7); Potassium 3.9 mEq/L (3.5-4.5); Sodium 145 mEq/L (136-145); eGFR For African Americans > 60 (> 60); eGFR For Non-African Americans > 60 (> 60)
[2016-11-08 05:19] LABS: % Iron Saturation 13 % (15-50); Iron 26 mcg/dL (50-170); Transferrin 138 mg/dL (180-382)
[2016-11-08 05:39] LABS: Ferritin 388 ng/ml (5-204)
[2016-11-08 05:52] LABS: Folate 5.7 ng/mL (7.0-31.4)
[2016-11-08] MEDS: Vancomycin 1,750 MG in D5% in Water 500 ML IVPB SCH ×4 (06:09→21:52)
[2016-11-08] MEDS: Potassium Chloride 40 MEQ/200 ML BAG IVPB PRN (06:11)
[2016-11-08] MEDS: Magnesium Sulfate 2 GM in D5% in Water 100 ML IVPB PRN (06:12)
[2016-11-08] MEDS: Pantoprazole 40 MG VIAL IVPB SCH ×3 (06:12→09:28)
[2016-11-08] MEDS: *HR* Heparin 5,000 UNIT/ML VIAL SQ SCH ×4 (06:12→21:53)
[2016-11-08] MEDS: Chlorhexidine Rinse 15 ML MOUTHWASH MM SCH (09:33)
[2016-11-08] MEDS: Thiamine (B-1) 100 MG TABLET PO SCH (09:33)
--- NOTE | 2016-11-08 10:07 | Pulmonology Progress Note ---
Date of Encounter: 11/08/16 Time of Encounter: 10:05 Assessment and Plan (1) Acute respiratory failure Current Visit: Yes Status: Acute Qualifiers: Respiratory failure complication: unspecified whether with hypoxia or hypercapnia Qualified Code(s): J96.00 - Acute respiratory failure, unspecified whether with hypoxia or hypercapnia (2) Shock Current Visit: Yes Status: Acute (3) Acute renal failure Current Visit: Yes Status: Resolved Qualifiers: Acute renal failure type: unspecified Qualified Code(s): N17.9 - Acute kidney failure, unspecified (4) Encephalopathy acute Current Visit: Yes Status: Acute (5) Aspiration pneumonia Current Visit: Yes Status: Acute Qualifiers: Aspiration pneumonia type: unspecified Laterality: unspecified laterality Lung location: unspecified part of lung Qualified Code(s): J69.0 - Pneumonitis due to inhalation of food and vomit (6) Thrombocytopenia Current Visit: Yes Status: Acute Subjective Principal diagnosis: Overdose Interval history: No acute overnight events. The patient remains paranoid and intermittently confused. She is occasionally refusing therapies due to fear poisoning. Unable to obtain review of systems secondary to mental status. Objective PUL Vital signs: Last Vital Signs Temp 99.9 F H 11/08/16 08:00 Pulse 72 11/08/16 09:02 Resp 18 11/08/16 09:02 BP 155/104 11/08/16 09:02 Pulse Ox 94 11/08/16 09:02 General: no acute distress Eyes: nonicteric ENT: oropharynx moist Neck: supple, no lymphadenopathy Lungs: Clear to auscultation bilaterally Cardiovascular: regular rate and rhythm Gastrointestinal: normoactive bowel sounds, soft, non-tender, non-distended Integumentary: normal Extremities: no cyanosis, no edema Musculoskeletal: no deformities Neuro: non-focal exam Psych: Anxious appearing, odd affect Results - Laboratory Findings CBC and BMP: 11/08/16 04:42 11/08/16 04:42 ABG ABG pH 7.35 pH Units (7.32-7.45) 11/04/16 04:37 ABG pCO2 40 mmHg (35-45) 11/04/16 04:37 ABG pO2 76 mmHg (85-104) L 11/04/16 04:37 ABG O2 Saturation 94 % (95-98) L 11/04/16 04:37 PT/INR, D-dimer PT 14.7 Seconds (9.4-12.1) H 11/07/16 02:53 D-Dimer 491 ng/mLFEU (0-500) 11/06/16 11:25 Abnormal lab findings: Abnormal lab results RBC 3.11 M/mcL (3.82-4.97) L 11/08/16 04:42 Hgb 9.6 g/dL (11.5-15.4) L 11/08/16 04:42 Hct 29.5 % (35.3-44.9) L 11/08/16 04:42 Plt Count 121 K/mcL (140-400) L 11/08/16 04:42 Band Neutrophils % 10.0 % (0-4) H 11/06/16 03:45 Nucleated RBCs/100 WBC 0.2 /100 WBC (0) H 11/04/16 03:09 Platelet Estimate Decreased (Normal) L 11/06/16 03:45 Immature Plt Fraction 8.9 % (1.1-6.1) H 11/07/16 02:53 Retic Hgb Equivalent 27.9 pg (28.61-36.33) L 11/08/16 04:42 PT 14.7 Seconds (9.4-12.1) H 11/07/16 02:53 APTT 43.2 Seconds (26.0-36.0) H 11/06/16 11:25 Fibrinogen 578 mg/dL (169-393) H 11/06/16 11:25 ABG pO2 76 mmHg (85-104) L 11/04/16 04:37 ABG O2 Saturation 94 % (95-98) L 11/04/16 04:37 ABG Base Excess -3.3 mEq/L (-2.0 to 3.0) L 11/04/16 04:37 Mixed VBG pH 7.23 (7.34-7.36) L 11/03/16 12:00 Mixed VBG pCO2 51 mmHg (44-46) H 11/03/16 12:00 Mixed VBG pO2 113 mmHg (35-45) H 11/03/16 12:00 Mixed VBG Oxyhemoglobin 95.8 % (60-80) H 11/03/16 12:00 BUN 5 mg/dL (7-20) L 11/08/16 04:42 POC Glucose 97 (58-89) H 11/08/16 05:50 Iron 26 mcg/dL (50-170) L 11/08/16 04:42 % Saturation 13 % (15-50) L 11/08/16 04:42 Transferrin 138 mg/dL (180-382) L 11/08/16 04:42 Ferritin 388 ng/ml (5-204) H 11/08/16 04:42 Serum Total Protein 5.4 g/dL (6.0-8.3) L 11/05/16 03:52 Albumin 2.7 g/dL (3.5-5.0) L 11/05/16 03:52 Albumin/Globulin Ratio 1.0 (1.1-2.2) L 11/05/16 03:52 Folate 5.7 ng/mL (7.0-31.4) L 11/08/16 04:42 Urine Blood Moderate (Negative) H 11/05/16 07:45 Urine Microscopic RBC 3-5 per hpf (0-3) H 11/05/16 07:45 Salicylates < 5.0 mg/dL (15-30) L 11/02/16 14:43 Urine Opiates Screen Positive ng/mL (Lrcick=261) H 11/02/16 17:15 Acetaminophen 3.0 mcg/mL (10-30) L 11/04/16 03:09 U Benzodiazepines Scrn Positive ng/mL (Kimsof=784) H 11/02/16 17:15 Hepatitis C Ab Screen Reactive (Nonreactive) H 11/05/16 07:50 - Microbiology Findings Microbiology Findings: Microbiology, Last 48 Hours 11/05/16 07:45 Sputum Culture - Final Sputum Enterobacter cloacae Klebsiella pneumoniae Methicillin Resistant S.aureus 11/05/16 07:23 Blood Culture - Preliminary Peripheral Venipuncture No growth. 11/05/16 07:09 Blood Culture - Preliminary Peripheral Venipuncture No growth. - Clinical Findings Intake & Output: Intake & Output 11/07/16 11/08/16 11/08/16 23:59 07:59 15:59 Intake Total 700 / 700 10 / 10 Output Total 1300 / 1300 700 / 700 420 / 420 Balance -600 / -600 -690 / -690 -420 / -420 Weight 74.843 kg - VTE Reasons for not Prescribing Prophylaxis: Not indicated-Anticoagulated or INR therapeutic Documentation of Mechanical Device: Intermittent pneumatic compression device Consult Discharge Plan - Plan Referrals: NO,PCP [Primary Care Provider] -
[2016-11-08] MEDS: Cefepime HCl 1,000 MG in D5% in Water (Mini-Bag+) 100 ML IVPB SCH ×2 (12:15→23:42)
--- NOTE | 2016-11-08 13:13 | Psychiatry Progress Note ---
Date of Encounter: 11/08/16 Time of Encounter: 12:50 Subjective Interval history: Danika is seen today for follow-up after overdose on [place] and Xanax. Patient continues to deny that this was a suicide attempt. She states that she was having paranoia and she had thoughts like her was actually her ex- . She states that she is "all better now." She repeats that she is "a christianity person" and states that she could never harm herself for this reason. Patient denies misuse of her prescription meds. She does admit to some memory problems. I discussed with the patient that she called in to her outpatient doctor and reported some paranoia like her food was being poisoned. She states "I am eating now and I do not think that anymore." She cannot state what caused the improvement in her symptoms. Spoke patient's daughters who are very concerned about her. They state that she still makes comments about "as being replaced." Daughters report that mom voiced concerns that her was actually her ex-. They report 6-8 month history of memory problems, paranoia, irritability. They were urging her to get help prior to the overdose but patient refused. Review of Systems ROS limited: due to patient condition Respiratory: Reports: cough Psychiatric: Reports: depression, anxiety, abnormal sleep pattern, anhedonia, hopelessness, other (paranoia) Objective: Exam Patient orientation: Yes Person, Yes Place, Yes Circumstance Level of alertness: Alert Patient appearance: Unkempt Behavior: guarded Psychomotor activity: Slowed Eye contact: Minimal Contact Mood description: Euthymic/stable Affect description: flat Speech pattern: Slowed Speech volume: Soft/Quiet Thought process: Zephyr Thought content: No Suicidal ideation, No Homicidal ideation Perceptual disturbances: No Auditory hallucinations, No Visual hallucinations Judgment: Poor Insight: None Results - Vital Signs Vital Signs: Temp Pulse Resp BP Pulse Ox 99.9 F H 78 20 127/92 96 11/08/16 08:00 11/08/16 12:41 11/08/16 12:13 11/08/16 12:13 11/08/16 12:13 - Labs Labs: Laboratory Results - last 24 hr 11/07/16 11/08/16 11/08/16 23:18 04:42 04:42 WBC 8.7 RBC 3.11 L Hgb 9.6 L Hct 29.5 L MCV 94.9 MCH 30.9 MCHC 32.5 RDW 12.2 Plt Count 121 L MPV 11.5 Reticulocyte # Immature Gran % 0.8 Seg Neutrophils % 70.0 Lymphocytes % 20.0 Monocytes % 5.6 Eosinophils % 3.4 Basophils % 0.2 Neutrophils # 6.1 Lymphocytes # 1.7 Monocytes # 0.5 Eosinophils # 0.3 Basophils # 0.0 Percent Retic Immature Retic Fraction Retic Hgb Equivalent Sodium 145 Potassium 3.9 Chloride 109 Carbon Dioxide 28 BUN 5 L Creatinine 0.66 Est GFR ( Amer) > 60 Est GFR (Non-Af Amer) > 60 BUN/Creatinine Ratio 8 Glucose 92 POC Glucose 90 H Calculated Osmolality 297 Calcium 9.4 Ionized Calcium 1.25 Phosphorus 4.3 Magnesium 1.8 Iron % Saturation Transferrin Ferritin Vitamin B12 Folate 11/08/16 11/08/16 11/08/16 04:42 04:42 04:42 WBC RBC Hgb Hct MCV MCH MCHC RDW Plt Count MPV Reticulocyte # 0.06 Immature Gran % Seg Neutrophils % Lymphocytes % Monocytes % Eosinophils % Basophils % Neutrophils # Lymphocytes # Monocytes # Eosinophils # Basophils # Percent Retic 1.9 Immature Retic Fraction 16.0 Retic Hgb Equivalent 27.9 L Sodium Potassium Chloride Carbon Dioxide BUN Creatinine Est GFR ( Amer) Est GFR (Non-Af Amer) BUN/Creatinine Ratio Glucose POC Glucose Calculated Osmolality Calcium Ionized Calcium Phosphorus Magnesium Iron 26 L % Saturation 13 L Transferrin 138 L Ferritin 388 H Vitamin B12 266 Folate 5.7 L 11/08/16 05:50 WBC RBC Hgb Hct MCV MCH MCHC RDW Plt Count MPV Reticulocyte # Immature Gran % Seg Neutrophils % Lymphocytes % Monocytes % Eosinophils % Basophils % Neutrophils # Lymphocytes # Monocytes # Eosinophils # Basophils # Percent Retic Immature Retic Fraction Retic Hgb Equivalent Sodium Potassium Chloride Carbon Dioxide BUN Creatinine Est GFR ( Amer) Est GFR (Non-Af Amer) BUN/Creatinine Ratio Glucose POC Glucose 97 H Calculated Osmolality Calcium Ionized Calcium Phosphorus Magnesium Iron % Saturation Transferrin Ferritin Vitamin B12 Folate - Impressions ITS Impressions Chest X-Ray 11/03/16 05:48 IMPRESSION: Satisfactory position of support devices. Lungs are well-aerated. D/ / Pablito Scott MD / Pablito Scott MD Interpreting Provider: Pablito Scott MD Chest X-Ray 11/03/16 09:16 IMPRESSION: 1. New left internal jugular central line terminates near the superior cavoatrial junction. No associated pneumothorax. 2. No acute cardiopulmonary process. D/ / Jasmeet Paul MD / Jasmeet Paul MD Interpreting Provider: Jasmeet Paul MD Liver Ultrasound 11/03/16 14:00 IMPRESSION: 1. No definite cirrhosis. 2. Status post cholecystectomy. 3. Small right upper quadrant ascites. 4. Small right-sided pleural effusion. D/ / Laine Macias MD / Laine Macias MD Interpreting Provider: Laine Macias MD Chest X-Ray 11/04/16 08:42 IMPRESSION: 1. No significant change in life support appliances. 2. Increased density involving the lower lung zones likely representing atelectasis. D/ / 11/04/2016 09:49:02 Bolivar Sow MD / Amelia Herrera Interpreting Provider: Bolivar Sow MD Chest X-Ray 11/05/16 06:40 IMPRESSION: Stable chest demonstrating persistent opacification in the right lower hemithorax possibly representing a combination of atelectasis and pleural fluid D/ / 11/05/2016 07:30:48 Jasmeet Penny MD / ivan Interpreting Provider: Jasmeet Penny MD Chest X-Ray 11/06/16 06:00 IMPRESSION: Little change compared with the previous evaluation. Stable life support system and central line. Mild right lower lobe atelectatic changes and small right effusion. D/ / 11/06/2016 07:25:39 Xin Cobb MD / hermila Interpreting Provider: Xin Cobb MD Brain MRI 11/06/16 08:15 IMPRESSION: A couple of tiny foci of high signal abnormality within the basal ganglia bilaterally involving the globus pallidus. Minimal chronic small vessel ischemic disease is suspected which is new since the prior study. Small incidental pineal cyst. No evidence of acute ischemia. D/ / 11/06/2016 15:20:58 Brady Villatoro MD / hermila Interpreting Provider: Brady Villatoro MD Assessment and Plan (1) Psychosis Current visit: Yes Status: Acute Plan: Continue hospitalization, Close observation, Suicide Precautions per unit protocol, Encourage participation in unit milieu, Group Therapy, Monitor sleep, Monitor appetite Additional Plan: Would recommend that we confirm there is a pink slip in the chart for patient as she will likely require involuntary admission once she is medically stabilized. At this point, it is unclear what the etiology of her paranoia and delusions are. Patient does have a family history of schizoaffective disorder. Patient has been exhibiting increased christianity preoccupation, paranoia, feeling like family members are "doubles." She has had memory issues and a personality change. We will be able to evaluate more carefully once patient has been stabilized medically. Family is supportive of her receiving psychiatric treatment. (2) Delirium Current visit: Yes Status: Resolved Additional Plan: Confusion from delirium appears to be resolving. Patient has been hospitalized since November 02 for the overdose. Please monitor closely for signs of withdrawal as patient was taking 1 mg of Xanax 3 times a day outside of the hospital and this could exacerbate delirium if she goes into withdrawal. Risks, benefits, side effects, alternatives discussed w/pt: Yes Patient agreeable to treatment: Yes (3) Overdose Current visit: Yes Status: Acute Additional Plan: Appears to be intentional. Patient will require psychiatric admission once medically stable. Qualifiers: Encounter type: initial encounter Injury intent: intentional self-harm Qualified Code(s): T50.902A - Poisoning by unspecified drugs, medicaments and biological substances, intentional self-harm, initial encounter Consult Discharge Plan - Plan Referrals: NO,PCP [Primary Care Provider] -
--- NOTE | 2016-11-08 13:41 | Neurology Progress Note ---
Date of Encounter: 11/08/16 Time of Encounter: 13:39 Assessment and Plan (1) Encephalopathy acute Current Visit: Yes Status: Acute Much improved. Apparently this is secondary to intentional overdose. No CRYSTAL LAPPER pathology identified. Please continue medical and supportive. Will sign off at this time. Please call if any questions Subjective Principal diagnosis: Overdose Interval history: Patient seen and examined. She is wide awake and oriented. No focal neurological deficits seen. MRI of brain reviewed and showed incidental finding of pineal cyst, this is a benign finding. No acute infarct. Few small white matter changes of no clinical significance Objective - Constitutional Vitals: Temp Pulse Resp BP Pulse Ox 99.9 F H 83 18 123/77 97 11/08/16 08:00 11/08/16 13:23 11/08/16 13:23 11/08/16 13:23 11/08/16 13:23 - Neurological Exam Sensorimotor examination: Present: intact, other (Unable to assess due to change in mental status) Motor Examination: Present: grossly full strength in all extremities, other Sensation intact: Present: other (Unable to assess) Posture: Present: other (None) Reflexes: Biceps: 1+, Triceps: 1+, Brachioradialis: 1+, Patella: 1+, Achilles: 1 + Mental Status Examination: Present: awake, alert, oriented to person, follows commands appropriately, answers questions appropriately, makes eye contact, follows simple commands Cranial nerve examination: Present: PERRL, EOMI, visual rothman intact (unable to assess. Patient is able follow visually. She however, does not follow commands. ), corneal reflexes brisk symmetrically Cerebellar examination: Present: no dysmetria - VTE Reasons for not Prescribing Prophylaxis: Not indicated-Anticoagulated or INR therapeutic Documentation of Mechanical Device: Intermittent pneumatic compression device Results - Laboratory Findings CBC and BMP: 11/08/16 04:42 11/08/16 04:42 Abnormal lab findings: Abnormal lab results RBC 3.11 M/mcL (3.82-4.97) L 11/08/16 04:42 Hgb 9.6 g/dL (11.5-15.4) L 11/08/16 04:42 Hct 29.5 % (35.3-44.9) L 11/08/16 04:42 Plt Count 121 K/mcL (140-400) L 11/08/16 04:42 Band Neutrophils % 10.0 % (0-4) H 11/06/16 03:45 Nucleated RBCs/100 WBC 0.2 /100 WBC (0) H 11/04/16 03:09 Platelet Estimate Decreased (Normal) L 11/06/16 03:45 Immature Plt Fraction 8.9 % (1.1-6.1) H 11/07/16 02:53 Retic Hgb Equivalent 27.9 pg (28.61-36.33) L 11/08/16 04:42 PT 14.7 Seconds (9.4-12.1) H 11/07/16 02:53 APTT 43.2 Seconds (26.0-36.0) H 11/06/16 11:25 Fibrinogen 578 mg/dL (169-393) H 11/06/16 11:25 ABG pO2 76 mmHg (85-104) L 11/04/16 04:37 ABG O2 Saturation 94 % (95-98) L 11/04/16 04:37 ABG Base Excess -3.3 mEq/L (-2.0 to 3.0) L 11/04/16 04:37 Mixed VBG pH 7.23 (7.34-7.36) L 11/03/16 12:00 Mixed VBG pCO2 51 mmHg (44-46) H 11/03/16 12:00 Mixed VBG pO2 113 mmHg (35-45) H 11/03/16 12:00 Mixed VBG Oxyhemoglobin 95.8 % (60-80) H 11/03/16 12:00 BUN 5 mg/dL (7-20) L 11/08/16 04:42 POC Glucose 97 (58-89) H 11/08/16 05:50 Iron 26 mcg/dL (50-170) L 11/08/16 04:42 % Saturation 13 % (15-50) L 11/08/16 04:42 Transferrin 138 mg/dL (180-382) L 11/08/16 04:42 Ferritin 388 ng/ml (5-204) H 11/08/16 04:42 Serum Total Protein 5.4 g/dL (6.0-8.3) L 11/05/16 03:52 Albumin 2.7 g/dL (3.5-5.0) L 11/05/16 03:52 Albumin/Globulin Ratio 1.0 (1.1-2.2) L 11/05/16 03:52 Folate 5.7 ng/mL (7.0-31.4) L 11/08/16 04:42 Urine Blood Moderate (Negative) H 11/05/16 07:45 Urine Microscopic RBC 3-5 per hpf (0-3) H 11/05/16 07:45 Salicylates < 5.0 mg/dL (15-30) L 11/02/16 14:43 Urine Opiates Screen Positive ng/mL (Icctjj=145) H 11/02/16 17:15 Acetaminophen 3.0 mcg/mL (10-30) L 11/04/16 03:09 U Benzodiazepines Scrn Positive ng/mL (Yshrtu=339) H 11/02/16 17:15 Hepatitis C Ab Screen Reactive (Nonreactive) H 11/05/16 07:50 Consult Discharge Plan - Plan Referrals: NO,PCP [Primary Care Provider] -
[2016-11-08] MEDS ORDERED: *HR* Dextrose 50 % in Water (Syg) 50 ML SYRINGE IVP PRN (15:45)
[2016-11-08] MEDS ORDERED: Naloxone 0.4 MG/ML INJ IVP PRN (15:45)
[2016-11-08] MEDS ORDERED: Ipratropium/Albuterol Neb 3 ML IH PRN (15:45)
[2016-11-09] MEDS: *HR* Heparin 5,000 UNIT/ML VIAL SQ SCH ×3 (06:04→22:35)
[2016-11-09] MEDS: Thiamine (B-1) 100 MG TABLET PO SCH (07:52)
[2016-11-09] MEDS: Vancomycin 1,750 MG in D5% in Water 500 ML IVPB SCH (07:52)
--- NOTE | 2016-11-09 10:35 | Internal Med Progress Note ---
Date of Encounter: 11/09/16 Time of Encounter: 10:32 - Assessment and plan (1) Aspiration pneumonia Current Visit: Yes Status: Acute Assessment and plan: Improving, no longer requiring supplemental O2. Continue IV Vancomycin and Cefepime for now. Sputum culture grows MRSA, Klebsiella, Enterobacter. May switch to PO Bactrim and transfer to Psychiatry floor in am, if stable. Qualifiers: Aspiration pneumonia type: unspecified Laterality: unspecified laterality Lung location: unspecified part of lung Qualified Code(s): J69.0 - Pneumonitis due to inhalation of food and vomit (2) Encephalopathy acute Current Visit: Yes Status: Resolved Assessment and plan: Currently at baseline mental status; Neurology evaluation appreciated, no e/o- central nervous pathology, signed off at this time. (3) Suicide attempt by drug ingestion Current Visit: Yes Status: Resolved Qualifiers: Encounter type: initial encounter Qualified Code(s): T50.902A - Poisoning by unspecified drugs, medicaments and biological substances, intentional self- harm, initial encounter (4) Elevated INR Current Visit: Yes Status: Acute Assessment and plan: likely due to Tylenol OD along with mild cirrhosis. (5) Acute respiratory failure Current Visit: Yes Status: Resolved Assessment and plan: s/p intubation and extubation, due to aspiration Pneumonia, drug overdose. Qualifiers: Respiratory failure complication: hypoxia Qualified Code(s): J96.01 - Acute respiratory failure with hypoxia (6) Shock Current Visit: Yes Status: Resolved (7) Thrombocytopenia Current Visit: Yes Status: Resolved (8) Anemia Current Visit: Yes Status: Chronic Assessment and plan: Workup shows low serum folate levels, will start folic acid supplements; iron level and saturation low but high Ferritin and low transferrin; Qualifiers: Anemia type: unspecified type Qualified Code(s): D64.9 - Anemia, unspecified (9) Depression Current Visit: Yes Status: Chronic Assessment and plan: Psychiatry evaluation appreciated; patient needs involuntary admission to inpatient Psychiatry unit for counseling and psychotherapy, when medically stable; she is to be pink slipped. Qualifiers: Depression Type: unspecified Qualified Code(s): F32.9 - Major depressive disorder, single episode, unspecified (10) Hypertension Current Visit: Yes Status: Chronic Qualifiers: Hypertension type: essential hypertension Qualified Code(s): I10 - Essential (primary) hypertension (11) COPD (chronic obstructive pulmonary disease) Current Visit: Yes Status: Chronic Qualifiers: COPD type: chronic bronchitis Chronic bronchitis type: simple Qualified Code(s): J41.0 - Simple chronic bronchitis - Subjective Interval history: Noted to be slightly nervous and tearful but able to answer questions, does not remember much about the reason for admission but states she feels well now, and would like to be discharged home soon; tolerates oral diet; no cough, dyspnea, chest pain, vomiting or diarrhea; - Constitutional Vitals: Temp Pulse Resp BP Pulse Ox 98.1 F 76 18 108/67 94 11/09/16 07:00 11/09/16 07:00 11/09/16 07:00 11/09/16 07:00 11/09/16 07:00 General appearance: Present: A&O X 3, answers questions appropriately - Respiratory Respiratory exam: Present: CTAB. Absent: accessory muscle use, rales, rhonchi, wheezes - Cardiovascular Cardiovascular exam: Present: RRR, +S1, +S2. Absent: diastolic murmur, gallop, rubs, systolic murmur - GI/Abdominal GI/Abdominal exam: Present: normal bowel sounds, soft, no peritoneal signs. Absent: distended, tenderness - Extremities Exam Extremities exam: Present: full ROM, warm, radial pulses palpable and symetrical. Absent: calf tenderness, cyanotic, pedal edema - Neurological Exam Neurological exam: Present: CN II-XII intact, oriented X3, no focal deficits. Absent: pronater drift, facial droop, speech deficit - Psychiatric Psychiatric exam: Present: anxious, depressed (slightly tearful) - Skin Skin exam: Present: dry, intact Internal Medicine: Result - Labs CBC & Chem 7: 11/08/16 04:42 11/08/16 04:42 - ABG Interpretation ABG results: ABG ABG pH 7.35 pH Units (7.32-7.45) 11/04/16 04:37 ABG pCO2 40 mmHg (35-45) 11/04/16 04:37 ABG pO2 76 mmHg (85-104) L 11/04/16 04:37 ABG O2 Saturation 94 % (95-98) L 11/04/16 04:37 PT/INR, D-dimer PT 14.7 Seconds (9.4-12.1) H 11/07/16 02:53 D-Dimer 491 ng/mLFEU (0-500) 11/06/16 11:25 - Impressions Impressions Chest X-Ray 11/06/16 06:00 IMPRESSION: Little change compared with the previous evaluation. Stable life support system and central line. Mild right lower lobe atelectatic changes and small right effusion. D/ / 11/06/2016 07:25:39 Xin Cobb MD / bcarter Interpreting Provider: Xin Cobb MD - VTE Reasons for not Prescribing Prophylaxis: Not indicated-Anticoagulated or INR therapeutic Documentation of Mechanical Device: Intermittent pneumatic compression device Consult Discharge Plan - Plan Referrals: NO,PCP [Primary Care Provider] -
[2016-11-09] MEDS: Cefepime HCl 1,000 MG in D5% in Water (Mini-Bag+) 100 ML IVPB SCH (11:52)
[2016-11-09] MEDS: Folic Acid 1 MG TABLET PO SCH (11:52)
[2016-11-09] MEDS ORDERED: Vancomycin 1,500 MG in D5% in Water 500 ML IVPB SCH (21:00)
[2016-11-10] MEDS: Cefepime HCl 1,000 MG in D5% in Water (Mini-Bag+) 100 ML IVPB SCH ×2 (00:43→12:59)
[2016-11-10] MEDS: *HR* Heparin 5,000 UNIT/ML VIAL SQ SCH ×3 (05:23→22:41)
[2016-11-10 08:08] LABS: Basophils % 0.4 %; Eosinophils # 0.3 K/mcL (0.0-0.6); Eosinophils % 2.8 %; Hematocrit 32.7 % (35.3-44.9); Immature Granulocytes % 3.8 % (0-4); Lymphocytes % 21.7 %; Mean Corpuscular HGB Conc 33.6 g/dL (31.6-35.5); Mean Corpuscular Hemoglobin 31.1 pg (28.0-33.3); Mean Corpuscular Volume 92.4 fL (83.0-100.0); Mean Platelet Volume 11.2 fL (9.4-12.4); Monocytes # 0.6 K/mcL (0.0-1.3); Monocytes % 6.2 %; Neutrophils # 6.1 K/mcL (1.6-8.9); Platelet Count 205 K/mcL (140-400); Red Blood Count 3.54 M/mcL (3.82-4.97); Segmented Neutrophils % 65.1 %
[2016-11-10 08:20] LABS: BUN/Creatinine Ratio 12 (6-26); Blood Urea Nitrogen 8 mg/dL (7-20); Calcium 9.8 mg/dL (8.6-10.8); Carbon Dioxide 27 mEq/L (19-29); Chloride 107 mEq/L (98-109); Glucose 110 mg/dL (70-99); Magnesium 1.9 mg/dL (1.6-2.6); Osmolality,Calculated 297 (280-300); Potassium 3.6 mEq/L (3.5-4.5); Sodium 144 mEq/L (136-145); eGFR For African Americans > 60 (> 60); eGFR For Non-African Americans > 60 (> 60)
[2016-11-10] MEDS: Folic Acid 1 MG TABLET PO SCH (09:12)
[2016-11-10] MEDS: Vancomycin 1,500 MG in D5% in Water 250 ML IVPB SCH ×2 (09:12→22:37)
[2016-11-10] MEDS: Thiamine (B-1) 100 MG TABLET PO SCH (09:12)
--- NOTE | 2016-11-10 14:46 | Psychiatry Progress Note ---
Date of Encounter: 11/10/16 Time of Encounter: 14:00 Subjective Interval history: Patient was initially evaluated by psychiatric consult by Dr. ang, she was diagnosed with delirium, status post overdose and psychosis. Review of the records and treatments recommendation was to admit the patient to psychiatric units after medical stabilization for further treatments. The nursing staff reported to me that patient's is placed on precautions for MRSA positive and sputum precautions. Under these conditions patient will need to be isolated and would not be able to participate in groups or activities on the unit. On interview patient was alert and oriented, denied any suicidal or homicidal ideation and she stated that she had remote history of substance abuse but never had any treatment or rehabilitation. There was no evidence that patient had any mental health's treatments in the past. Patient is ready for discharge from medical standpoint as discussed with her attending physician Dr. osorio. At this point I recommended providing resources information for outpatients psychiatric and substance abuse treatment to address concerns of paranoia and mood disorder that could be substance induced. At this time patient is recovering from her delirium and not ready to be placed on psychotropic medication. Review of Systems Psychiatric: Reports: depression, anxiety, abnormal sleep pattern, anhedonia, hopelessness, other (paranoia) Objective: Exam Patient orientation: Yes Person, Yes Time, Yes Place Level of alertness: Alert Patient appearance: Appropriate, Well Groomed Behavior: calm, cooperative Psychomotor activity: Normal Eye contact: Maintains Eye Contact Mood description: Euthymic/stable, Anxious Affect description: congruent with mood, full range Speech pattern: Normal rate, Normal rhythm, Normal tone Speech volume: Normal Thought process: Linear, Goal Oriented Thought content: No Suicidal ideation, No Homicidal ideation, No Overt delusions Perceptual disturbances: No Auditory hallucinations, No Visual hallucinations Judgment: Fair Insight: Partial Results - Vital Signs Vital Signs: Temp Pulse Resp BP Pulse Ox 98.5 F 75 18 140/75 96 11/10/16 11:31 11/10/16 11:31 11/10/16 11:31 11/10/16 11:31 11/10/16 11:31 - Labs Labs: Laboratory Results - last 24 hr 11/09/16 11/10/16 11/10/16 19:45 07:52 07:52 WBC 9.4 RBC 3.54 L Hgb 11.0 L Hct 32.7 L MCV 92.4 MCH 31.1 MCHC 33.6 RDW 12.0 Plt Count 205 D MPV 11.2 Immature Gran % 3.8 Seg Neutrophils % 65.1 Lymphocytes % 21.7 Monocytes % 6.2 Eosinophils % 2.8 Basophils % 0.4 Neutrophils # 6.1 Lymphocytes # 2.0 Monocytes # 0.6 Eosinophils # 0.3 Basophils # 0.0 Sodium 144 Potassium 3.6 Chloride 107 Carbon Dioxide 27 BUN 8 Creatinine 0.66 Est GFR ( Amer) > 60 Est GFR (Non-Af Amer) > 60 BUN/Creatinine Ratio 12 Glucose 110 H Calculated Osmolality 297 Calcium 9.8 Magnesium 1.9 Vancomycin Trough 21.6 H* - Impressions ITS Impressions Chest X-Ray 11/03/16 05:48 IMPRESSION: Satisfactory position of support devices. Lungs are well-aerated. D/ / Pablito Scott MD / Pablito Scott MD Interpreting Provider: Pablito Scott MD Chest X-Ray 11/03/16 09:16 IMPRESSION: 1. New left internal jugular central line terminates near the superior cavoatrial junction. No associated pneumothorax. 2. No acute cardiopulmonary process. D/ / Jasmeet Paul MD / Jasmeet Paul MD Interpreting Provider: Jasmeet Paul MD Liver Ultrasound 11/03/16 14:00 IMPRESSION: 1. No definite cirrhosis. 2. Status post cholecystectomy. 3. Small right upper quadrant ascites. 4. Small right-sided pleural effusion. D/ / Laine Macias MD / Laine Macias MD Interpreting Provider: Laine Macias MD Chest X-Ray 11/04/16 08:42 IMPRESSION: 1. No significant change in life support appliances. 2. Increased density involving the lower lung zones likely representing atelectasis. D/ / 11/04/2016 09:49:02 Bolivar Sow MD / Amelia Herrera Interpreting Provider: Bolivar Sow MD Chest X-Ray 11/05/16 06:40 IMPRESSION: Stable chest demonstrating persistent opacification in the right lower hemithorax possibly representing a combination of atelectasis and pleural fluid D/ / 11/05/2016 07:30:48 Jasmeet Penny MD / ivan Interpreting Provider: Jasmeet Penny MD Chest X-Ray 11/06/16 06:00 IMPRESSION: Little change compared with the previous evaluation. Stable life support system and central line. Mild right lower lobe atelectatic changes and small right effusion. D/ / 11/06/2016 07:25:39 Xin Cobb MD / hermila Interpreting Provider: Xin Cobb MD Brain MRI 11/06/16 08:15 IMPRESSION: A couple of tiny foci of high signal abnormality within the basal ganglia bilaterally involving the globus pallidus. Minimal chronic small vessel ischemic disease is suspected which is new since the prior study. Small incidental pineal cyst. No evidence of acute ischemia. D/ / 11/06/2016 15:20:58 Brady Villatoro MD / brianrtdianna Interpreting Provider: Brady Villatoro MD Assessment and Plan (1) Delirium, drug-induced Current visit: Yes Status: Acute Additional Plan: 1. Patient is not appropriate for inpatient psychiatric hospitalization 2. When patient is medically stable she can be discharged 3. Resources for outpatient psychiatric and substance abuse treatment will be offered to the patient for follow-up. The above was discussed with attending physician. Consult Discharge Plan - Plan Referrals: NO,PCP [Primary Care Provider] -
--- NOTE | 2016-11-10 15:36 | Internal Med Progress Note ---
Date of Encounter: 11/10/16 Time of Encounter: 10:30 - Assessment and plan (1) Aspiration pneumonia Current Visit: Yes Status: Acute Assessment and plan: Improving, no longer requiring supplemental O2. Continue IV Vancomycin-day 7 and Cefepime-day 4 for now. Sputum culture grows MRSA, Klebsiella, Enterobacter. May switch to PO Bactrim when ready for discharge. Respiratory and contact isolation due to MRSA. Physical and occupational therapy evaluation recommends placement in inpatient rehabilitation. financial services rep consult. Qualifiers: Aspiration pneumonia type: unspecified Laterality: unspecified laterality Lung location: unspecified part of lung Qualified Code(s): J69.0 - Pneumonitis due to inhalation of food and vomit (2) Encephalopathy acute Current Visit: Yes Status: Resolved (3) Suicide attempt by drug ingestion Current Visit: Yes Status: Resolved Qualifiers: Encounter type: initial encounter Qualified Code(s): T50.902A - Poisoning by unspecified drugs, medicaments and biological substances, intentional self- harm, initial encounter (4) Elevated INR Current Visit: Yes Status: Acute Assessment and plan: likely due to Tylenol OD along with mild cirrhosis. Improving. (5) Acute respiratory failure Current Visit: Yes Status: Resolved Qualifiers: Respiratory failure complication: hypoxia Qualified Code(s): J96.01 - Acute respiratory failure with hypoxia (6) Shock Current Visit: Yes Status: Resolved (7) Thrombocytopenia Current Visit: Yes Status: Resolved (8) Anemia Current Visit: Yes Status: Chronic Assessment and plan: Workup shows low serum folate levels, started folic acid supplements; iron level and saturation low but high Ferritin and low transferrin; Qualifiers: Anemia type: unspecified type Qualified Code(s): D64.9 - Anemia, unspecified (9) Depression Current Visit: Yes Status: Chronic Assessment and plan: Psychiatry follow-up appreciated; discussed personally with ; patient is not a candidate to participate in group sessions in inpatient psychiatric unit due to being on respiratory precautions for MRSA. She stable for discharge from psychiatric standpoint at this time with outpatient follow-up. [place] slip is going to be reversed by psychiatry. However, after psychiatry evaluation, patient reports to the nurse that she does not feel safe to go home. Hold discharge at this time. financial services rep consult. Psychiatric follow-up. Qualifiers: Depression Type: unspecified Qualified Code(s): F32.9 - Major depressive disorder, single episode, unspecified (10) Hypertension Current Visit: Yes Status: Chronic Qualifiers: Hypertension type: essential hypertension Qualified Code(s): I10 - Essential (primary) hypertension (11) COPD (chronic obstructive pulmonary disease) Current Visit: Yes Status: Chronic Qualifiers: COPD type: chronic bronchitis Chronic bronchitis type: simple Qualified Code(s): J41.0 - Simple chronic bronchitis (12) Anxiety Current Visit: Yes Status: Chronic Assessment and plan: We will restart when necessary benzodiazepines. - Subjective Interval history: Continues to be anxious and tearful about being transferred to inpatient psychiatry. Reports no chest pain, cough, shortness of breath. - Constitutional Vitals: Temp Pulse Resp BP Pulse Ox 98.9 F 72 18 121/73 94 11/10/16 15:03 11/10/16 15:03 11/10/16 15:03 11/10/16 15:03 11/10/16 15:03 General appearance: Present: A&O X 3, answers questions appropriately - Respiratory Respiratory exam: Present: CTAB. Absent: accessory muscle use, rales, rhonchi, wheezes - Cardiovascular Cardiovascular exam: Present: RRR, +S1, +S2. Absent: diastolic murmur, gallop, rubs, systolic murmur - GI/Abdominal GI/Abdominal exam: Present: normal bowel sounds, soft, no peritoneal signs. Absent: distended, tenderness - Extremities Exam Extremities exam: Present: full ROM, warm, radial pulses palpable and symetrical. Absent: calf tenderness, cyanotic, pedal edema - Psychiatric Psychiatric exam: Present: anxious, depressed (Tearful), flat affect Internal Medicine: Result - Labs CBC & Chem 7: 11/10/16 07:52 11/10/16 07:52 Labs: Short CBC 11/10/16 Range/Units 07:52 WBC 9.4 (4.3-11.1) K/mcL Hgb 11.0 L (11.5-15.4) g/dL Hct 32.7 L (35.3-44.9) % Plt Count 205 D (140-400) K/mcL Neutrophils # 6.1 (1.6-8.9) K/mcL BMP 11/10/16 07:52 Sodium 144 Potassium 3.6 Chloride 107 Carbon Dioxide 27 BUN 8 Creatinine 0.66 Glucose 110 H Calcium 9.8 - ABG Interpretation ABG results: ABG ABG pH 7.35 pH Units (7.32-7.45) 11/04/16 04:37 ABG pCO2 40 mmHg (35-45) 11/04/16 04:37 ABG pO2 76 mmHg (85-104) L 11/04/16 04:37 ABG O2 Saturation 94 % (95-98) L 11/04/16 04:37 PT/INR, D-dimer PT 14.7 Seconds (9.4-12.1) H 11/07/16 02:53 D-Dimer 491 ng/mLFEU (0-500) 11/06/16 11:25 - VTE Reasons for not Prescribing Prophylaxis: Not indicated-Anticoagulated or INR therapeutic Documentation of Mechanical Device: Intermittent pneumatic compression device Consult Discharge Plan - Plan Referrals: NO,PCP [Primary Care Provider] -
[2016-11-10] MEDS: ALPRAZolam 1 MG TABLET PO PRN (23:36)
[2016-11-11] MEDS: Cefepime HCl 1,000 MG in D5% in Water (Mini-Bag+) 100 ML IVPB SCH ×3 (00:37→23:01)
[2016-11-11] MEDS: *HR* Heparin 5,000 UNIT/ML VIAL SQ SCH ×3 (05:35→21:12)
[2016-11-11] MEDS ORDERED: Aminoglycoside Consult 1 EACH MC ONE (07:34)
[2016-11-11] MEDS: Folic Acid 1 MG TABLET PO SCH (08:17)
[2016-11-11] MEDS: Thiamine (B-1) 100 MG TABLET PO SCH (08:17)
[2016-11-11] MEDS: Vancomycin 1,500 MG in D5% in Water 250 ML IVPB SCH (08:18)
[2016-11-11] MEDS: ALPRAZolam 1 MG TABLET PO PRN (08:32)
--- NOTE | 2016-11-11 12:04 | Internal Med Progress Note ---
Date of Encounter: 11/11/16 Time of Encounter: 12:03 - Assessment and plan (1) Aspiration pneumonia Current Visit: Yes Status: Acute Assessment and plan: Improving, no longer requiring supplemental O2. Completed 7 days of IV vancomycin and 4 days of IV cefepime in addition to 2-3 days of IV Unasyn prior to this. We will change antibiotics to oral Bactrim at this time, in line with culture results. Sputum culture grows MRSA, Klebsiella, Enterobacter. Respiratory and contact isolation due to MRSA. Physical and occupational therapy evaluation recommends placement in inpatient rehabilitation. coordinator volunteer services working on the same. Patient is medically stable for discharge. Qualifiers: Aspiration pneumonia type: unspecified Laterality: unspecified laterality Lung location: unspecified part of lung Qualified Code(s): J69.0 - Pneumonitis due to inhalation of food and vomit (2) Encephalopathy acute Current Visit: Yes Status: Resolved (3) Suicide attempt by drug ingestion Current Visit: Yes Status: Resolved Qualifiers: Encounter type: initial encounter Qualified Code(s): T50.902A - Poisoning by unspecified drugs, medicaments and biological substances, intentional self- harm, initial encounter (4) Elevated INR Current Visit: Yes Status: Resolved (5) Acute respiratory failure Current Visit: Yes Status: Resolved Qualifiers: Respiratory failure complication: hypoxia Qualified Code(s): J96.01 - Acute respiratory failure with hypoxia (6) Shock Current Visit: Yes Status: Resolved (7) Thrombocytopenia Current Visit: Yes Status: Resolved (8) Anemia Current Visit: Yes Status: Chronic Assessment and plan: Workup shows low serum folate levels, started folic acid supplements; iron level and saturation low but high Ferritin and low transferrin; Qualifiers: Anemia type: unspecified type Qualified Code(s): D64.9 - Anemia, unspecified (9) Depression Current Visit: Yes Status: Chronic Assessment and plan: Psychiatric reevaluation and follow-up completed, patient is cleared for discharge from psychiatric standpoint at this time. Discontinue one-to-one sitter at this time. She would definitely require and would benefit from outpatient psychiatric follow-up and counseling. Although patient continues to alternately report being completely fine and then seeking help, patient's family in complete support and agreement with the need for ongoing psychiatric follow-up and rehabilitation placement. Qualifiers: Depression Type: unspecified Qualified Code(s): F32.9 - Major depressive disorder, single episode, unspecified (10) Hypertension Current Visit: Yes Status: Chronic Qualifiers: Hypertension type: essential hypertension Qualified Code(s): I10 - Essential (primary) hypertension (11) COPD (chronic obstructive pulmonary disease) Current Visit: Yes Status: Chronic Qualifiers: COPD type: chronic bronchitis Chronic bronchitis type: simple Qualified Code(s): J41.0 - Simple chronic bronchitis (12) Anxiety Current Visit: Yes Status: Chronic Assessment and plan: We will change benzodiazepines to when necessary hydroxyzine for anxiety. - Subjective Interval history: Reports no chest pain, cough, shortness of breath; anxiety better today; plan of care discussed with patient and daughter in detail; - Constitutional Vitals: Temp Pulse Resp BP Pulse Ox 98 F 79 14 96/55 93 11/11/16 04:08 11/11/16 04:08 11/11/16 04:08 11/11/16 04:08 11/11/16 04:08 General appearance: Present: A&O X 3, answers questions appropriately - Respiratory Respiratory exam: Present: CTAB. Absent: accessory muscle use, rales, rhonchi, wheezes - Cardiovascular Cardiovascular exam: Present: RRR, +S1, +S2. Absent: diastolic murmur, gallop, rubs, systolic murmur - GI/Abdominal GI/Abdominal exam: Present: normal bowel sounds, soft, no peritoneal signs. Absent: distended, tenderness - Extremities Exam Extremities exam: Present: full ROM, warm, radial pulses palpable and symetrical. Absent: calf tenderness, cyanotic, pedal edema Internal Medicine: Result - Labs CBC & Chem 7: 11/10/16 07:52 11/10/16 07:52 - ABG Interpretation ABG results: ABG ABG pH 7.35 pH Units (7.32-7.45) 11/04/16 04:37 ABG pCO2 40 mmHg (35-45) 11/04/16 04:37 ABG pO2 76 mmHg (85-104) L 11/04/16 04:37 ABG O2 Saturation 94 % (95-98) L 11/04/16 04:37 PT/INR, D-dimer PT 14.7 Seconds (9.4-12.1) H 11/07/16 02:53 D-Dimer 491 ng/mLFEU (0-500) 11/06/16 11:25 - VTE Reasons for not Prescribing Prophylaxis: Not indicated-Anticoagulated or INR therapeutic Documentation of Mechanical Device: Intermittent pneumatic compression device Consult Discharge Plan - Plan Referrals: NO,PCP [Primary Care Provider] -
[2016-11-11] MEDS: Sulfamethoxazole/Trimeth DS 1 EACH TABLET PO SCH (21:12)
[2016-11-12] MEDS: *HR* Heparin 5,000 UNIT/ML VIAL SQ SCH (06:24)
[2016-11-12] MEDS: Sulfamethoxazole/Trimeth DS 1 EACH TABLET PO SCH (09:16)
[2016-11-12] MEDS: Folic Acid 1 MG TABLET PO SCH (09:17)
[2016-11-12] MEDS: Thiamine (B-1) 100 MG TABLET PO SCH (09:32)
[2016-11-12 11:41] VITALS: BP 103/68
[2016-11-12] MEDS: Cefepime HCl 1,000 MG in D5% in Water (Mini-Bag+) 100 ML IVPB SCH (12:36)
--- NOTE | 2016-11-12 12:55 | Discharge Summary ---
Date of Encounter: 11/12/16 Time of Encounter: 10:30 - Discharge Diagnosis (1) Aspiration pneumonia Priority: Primary Status: Acute Qualifiers: Aspiration pneumonia type: unspecified Laterality: unspecified laterality Lung location: unspecified part of lung Qualified Code(s): J69.0 - Pneumonitis due to inhalation of food and vomit (2) Encephalopathy acute Priority: Primary Status: Resolved (3) Suicide attempt by drug ingestion Priority: Primary Status: Resolved Qualifiers: Encounter type: initial encounter Qualified Code(s): T50.902A - Poisoning by unspecified drugs, medicaments and biological substances, intentional self- harm, initial encounter (4) Elevated INR Priority: Primary Status: Resolved (5) Acute respiratory failure Priority: Primary Status: Resolved Qualifiers: Respiratory failure complication: hypoxia Qualified Code(s): J96.01 - Acute respiratory failure with hypoxia (6) Shock Priority: Primary Status: Resolved (7) Thrombocytopenia Priority: Secondary Status: Resolved (8) Anemia Priority: Secondary Status: Chronic Qualifiers: Anemia type: unspecified type Qualified Code(s): D64.9 - Anemia, unspecified (9) Depression Priority: Secondary Status: Chronic Qualifiers: Depression Type: unspecified Qualified Code(s): F32.9 - Major depressive disorder, single episode, unspecified (10) Hypertension Priority: Secondary Status: Chronic Qualifiers: Hypertension type: essential hypertension Qualified Code(s): I10 - Essential (primary) hypertension (11) COPD (chronic obstructive pulmonary disease) Priority: Secondary Status: Chronic Qualifiers: COPD type: chronic bronchitis Chronic bronchitis type: simple Qualified Code(s): J41.0 - Simple chronic bronchitis (12) Anxiety Priority: Secondary Status: Chronic (13) Substance abuse Priority: Secondary Status: Chronic - Discharge Medications Prescriptions: Folic Acid 1 mg PO DAILY #30 tablet HydrOXYzine 10 mg PO TID PRN #20 tablet PRN Reason: Anxiety Sulfamethoxazole/Trimeth DS [Bactrim Ds] 1 each PO BID #10 tablet Thiamine (B-1) [Vitamin B-1] 100 mg PO DAILY #30 tablet Home Medications: Albuterol Sulfate [Ventolin Hfa] 2 puff IH Q4H PRN 08/07/15 [History] Fluticasone/Salmeterol [Advair 250-50 Diskus] 1 puff IH BID 08/07/15 [History] Ipratropium/Albuterol Neb [Duoneb] 3 ml IH QID PRN 08/07/15 [History] Omeprazole [PriLOSEC] 40 mg PO DAILY 08/07/15 [History] Ranitidine HCl [Zantac] 150 mg PO BID 08/07/15 [History] Tizanidine HCl 4 mg PO Q8H PRN 08/07/15 [History] Fenofibrate Nanocrystallized [Triglide] 160 mg PO DAILY 11/02/16 [History] Gabapentin [Neurontin] 300 mg PO TID 11/02/16 [History] [place]-3/Dha/Epa/Fish Oil [Fish Oil 1,000 mg Softgel] 1,000 mg PO DAILY 11/02/16 [History] Folic Acid 1 mg PO DAILY #30 tablet 11/12/16 [Rx] HydrOXYzine 10 mg PO TID PRN #20 tablet 11/12/16 [Rx] Sulfamethoxazole/Trimeth DS [Bactrim Ds] 1 each PO BID #10 tablet 11/12/16 [Rx] Thiamine (B-1) [Vitamin B-1] 100 mg PO DAILY #30 tablet 11/12/16 [Rx] Allergies/Adverse Reactions: Allergies No Known Allergies Allergy (Verified 08/07/15 11:35) Date of admission: 11/02/16 23:02 Primary care physician: PCP NO Consults: 11/05/16 12:08 Consult to Interpret Exam [CONS] Routine Consulting Provider: Jasmeet Graham Consult to Interpret Exam: Interpret EEG 11/06/16 08:05 Consult to Neurology [CONS] Routine Consulting Provider: Neurology [facility] Reason for Consult: Patient admitted after intentional OD. Mental status not improving. EEG with general encephalopathy. Appreciate recommendations. Time Notified: 08:05 Call Completed: Yes 11/07/16 09:21 Consult to Psychiatry [CONS] Stat Consulting Provider: Psychiatry [place] [facility] Reason for Consult: SUICIDAL ATTEMPT, XANAX/NORCO Time Notified: 09:22 Call Completed: Yes 11/07/16 10:26 Consult to Occupational Therapy [CONS] Routine Comment: Evaluate, develop and implement POC Reason for Consult: POC Consult to Physical Therapy [CONS] Routine Comment: Evaluate, develop and implement POC Reason for Consult: POC 11/10/16 14:36 Consult to Mental Health Social Worker [CONS] Stat Reason for SW Consult: needs Rehab/Swing bed placement; inpatient with [facility] Discharging clinician: Beba Flor Anticipated date of discharge: 11/12/16 - Patient Status Disposition: Home, Self-Care Condition: Good Functional capacity at discharge: independent ambulation Overall status at discharge: patient is progressing back to baseline - Discharge Instructions Instructions: Anxiety (DC) Follow Up With: Zurdo Harrington MD [Partnered Physician] - Zandra Ledesma CNP [Advanced Practice Nurse] - 11/16/16 9:45 am Additional Instructions: F/up with PCP in 1-2 weeks F/up with Psychiatry as early as possible F/up with outpatient substance abuse rehab/counseling - Diet and Activity Activity: resume usual activities as tolerated Diet: advance to your usual diet, low fat, low cholesterol, low salt diet Hospital course: Ms. Mirza is a 46 year old female with history of substance abuse and depression, who was initially admitted with intentional drug overdose with suicidal ideation. She was noted to have overdosed on Xanax and [place] and was unable to maintain airway, underwent endotracheal intubation and was admitted to ICU. She was also noted to have pneumonia, possibly aspiration pneumonia and was initially treated with broad-spectrum antibiotics. Blood cultures remain negative, sputum culture showed polymicrobial growth including MRSA, Enterobacter, Klebsiella and she was treated with IV vancomycin and cefepime. She was successfully extubated and was saturating well on nasal cannula, tolerated oral diet and was transferred to regular floor for further monitoring. She was noted to have acute encephalopathy after extubation and neurology was consulted. CT head showed no acute abnormality. EEG showed no evidence of subclinical seizures. Her mental status was thought to be drug induced delirium, exacerbated by intubation and ICU stay. Her mental status gradually returned to baseline. She was evaluated by psychiatry after extubation and was pink slipped with plan to transfer to inpatient psychiatric unit when medically stable. However psychiatry re-evaluation was completed and the transfer was held due to the patient being on respiratory precautions. [place] slip has been revoked and patient was cleared from a psychiatric standpoint for discharge home with outpatient follow-up. Patient was noted to be anxious and tearful while on the floor, constantly requesting to be discharged home instead of inpatient psychiatric admission or inpatient rehabilitation admission. After multiple discussions with patient and her family, she is being discharged home with family support, with strong recommendations to follow up as an outpatient with psychiatric and substance abuse rehabilitation centers and patient and family verbalized understanding. She is otherwise medically stable for discharge with oral antibiotics. - Time Spent with Patient Total time spent providing and/or coordinating discharge services: Greater than 30 minutes (50 min) - Constitutional Vitals: Temp Pulse Resp BP Pulse Ox 98.7 F 79 17 103/68 96 11/12/16 11:40 11/12/16 11:40 11/12/16 11:40 11/12/16 11:40 11/12/16 11:40 General appearance: Present: A&O X 3, answers questions appropriately - Respiratory Respiratory exam: Present: CTAB. Absent: accessory muscle use, rales, rhonchi, wheezes - Cardiovascular Cardiovascular exam: Present: RRR, +S1, +S2. Absent: diastolic murmur, gallop, rubs, systolic murmur - VTE Reasons for not Prescribing Prophylaxis: Not indicated-Anticoagulated or INR therapeutic Documentation of Mechanical Device: Intermittent pneumatic compression device
--- NOTE | 2016-11-12 12:58 | Physician Discharge Referral ---
Home Health/Hosp Referral Info Transfer to: Home Health Attending Provider: Beba Flor Provider in Charge Post Discharge: PCP - Diagnosis (1) Aspiration pneumonia Priority: Primary Status: Acute (2) Encephalopathy acute Priority: Primary Status: Resolved (3) Suicide attempt by drug ingestion Priority: Primary Status: Resolved (4) Acute respiratory failure Priority: Primary Status: Resolved (5) Elevated INR Priority: Primary Status: Resolved (6) Shock Priority: Primary Status: Resolved (7) Thrombocytopenia Priority: Primary Status: Resolved (8) Anemia Priority: Secondary Status: Chronic (9) Depression Priority: Secondary Status: Chronic (10) Hypertension Priority: Secondary Status: Chronic (11) COPD (chronic obstructive pulmonary disease) Priority: Secondary Status: Chronic (12) Anxiety Priority: Secondary Status: Chronic (13) Substance abuse Priority: Secondary Status: Chronic - Respiratory Orders Smoking Cessation: Smoking cessation has been advised. For more information, call the [place] Tobacco Quit Line at 3-013-TQAR-NOW. - Diet/Nutrition Diet/Nutrition Orders: Cardiac - Activity Activity Orders: Ambulate - Services Needed Following services are medically necessary services: Physical Therapy, Occupational Therapy - Transfer Medications Prescriptions: Folic Acid 1 mg PO DAILY #30 tablet HydrOXYzine 10 mg PO TID PRN #20 tablet PRN Reason: Anxiety Sulfamethoxazole/Trimeth DS [Bactrim Ds] 1 each PO BID #10 tablet Thiamine (B-1) [Vitamin B-1] 100 mg PO DAILY #30 tablet Home Medications: Albuterol Sulfate [Ventolin Hfa] 2 puff IH Q4H PRN 08/07/15 [History] Fluticasone/Salmeterol [Advair 250-50 Diskus] 1 puff IH BID 08/07/15 [History] Ipratropium/Albuterol Neb [Duoneb] 3 ml IH QID PRN 08/07/15 [History] Omeprazole [PriLOSEC] 40 mg PO DAILY 08/07/15 [History] Ranitidine HCl [Zantac] 150 mg PO BID 08/07/15 [History] Tizanidine HCl 4 mg PO Q8H PRN 08/07/15 [History] Fenofibrate Nanocrystallized [Triglide] 160 mg PO DAILY 11/02/16 [History] Gabapentin [Neurontin] 300 mg PO TID 11/02/16 [History] Roann-3/Dha/Epa/Fish Oil [Fish Oil 1,000 mg Softgel] 1,000 mg PO DAILY 11/02/16 [History] Folic Acid 1 mg PO DAILY #30 tablet 11/12/16 [Rx] HydrOXYzine 10 mg PO TID PRN #20 tablet 11/12/16 [Rx] Sulfamethoxazole/Trimeth DS [Bactrim Ds] 1 each PO BID #10 tablet 11/12/16 [Rx] Thiamine (B-1) [Vitamin B-1] 100 mg PO DAILY #30 tablet 11/12/16 [Rx] Allergies/Adverse Reactions: Allergies No Known Allergies Allergy (Verified 08/07/15 11:35) Certification: Further, I certify that my clinical findings support that this patient is homebound (i.e. absences from home require considerable and taxing effort and are for medical reasons or buddhism services or infrequently or short duration when for other reasons) because: Homebound Reason: Patient requires assistance of a person or device to safely leave home, Altered mental status requiring supervision when leaving home Attestation: My signature below is to certify that this patient is under my care and that I, or nurse practitioner, or a physician's housing assistant working with me, has a face-to -face encounter with this patient.
== END 2016-11-12 13:30 | disposition home or self-care (01) | DRG 812 ==
LOC: ICNU 14:29 → EMEROO 14:29 → ICNU 21:13 → SUATTDRO 23:02 → 3ANU 11-08 15:53
PROVIDERS: ADMIT Internal Medicine Sleep Medicine; ATTEND Internal Medicine